=== PATIENT | female | born 1960 | race Caucasian/White ===

== ENCOUNTER → 2017-05-30 | Outpatient (CLI) | payer BC ==
[~2017-05-30] MED LIST: ALBU1AER9 PO; ALPR0.25 PO; AMIT50TA3 PO; CITA20TA9 PO; CLX20 PO; KETO10TA PO; LORA10TA5 PO; OXYC-57 PO; PRED20TA2 PO; PRM625 PO; RIZA10TA19 PO; ULT/50 PO
[2017-05-30 15:50] LABS: BASO % 0.2 %; BASO ABS # 0.01 K/uL (0-0.2); COMPLETE YES; EOS % 2.2 %; IG% 0.2 %; LYMPH % 29.5 %; LYMPH ABS # 1.21 K/uL (1.2-3.4); MEAN CORPUSCULAR HEMOGLOBIN 29.9 pg (25-34); MEAN CORPUSCULAR HGB CONC 33.9 g/dl (32-36); MEAN PLATELET VOLUME 9.1 fL (7.4-10.4); MONO % 6.3 %; NEUT % 61.6 %; PLATELET COUNT 268 K/uL (130-400); RED BLOOD COUNT 4.32 M/uL (4.2-5.4)
[2017-05-30 16:18] LABS: BLOOD UREA NITROGEN 15 mg/dl (7-18); BUN/CREATININE RATIO 17.1 (10-20); CARBON DIOXIDE 29 mmol/L (21-32); CHLORIDE 105 mmol/L (98-107); CREATININE 0.86 mg/dl (0.60-1.20); GLUCOSE 111 mg/dl (70-99); POTASSIUM 3.5 mmol/L (3.5-5.1); SODIUM 140 mmol/L (136-145)
== END | disposition home or self-care (01) ==
LOC: C.CPL 15:07
PROVIDERS: ATTEND Orthopaedic Surgery
DX: Z01.818 Encounter for other preprocedural examination (principal); M75.01 Adhesive capsulitis of right shoulder

== ENCOUNTER → 2017-06-14 | Day surgery (SDC) | payer BC ==
[2017-06-05 14:10] VITALS: Ht 167.6 cm; Wt 72.7 kg
[~2017-06-14] VITALS: Ht 167.6 cm; Wt 72.7 kg
[~2017-06-14] MED LIST changes: -ALBU1AER9 PO; -ALPR0.25 PO; +ATROPINE SULFATE 0.1 MG/ML 5ML SYR IV PRN; +BUPIVACAINE/EPINEPHRINE 0.25% 1:200,000 30 ML VIAL ONE; +BUPIVACAINE/EPINEPHRINE 0.5% MPF 1:200,000 10 ML VIAL ONE; +CEFAZOLIN 2000 MG/60 ML D5W IV SCH; -CLX20 PO; +DEXAMETHASONE SOD INJ 4 MG/ML VIAL ONE; +EpHEDrine SULFATE 50MG/5ML SYR ONE; +EpINEphrine INJ 1MG/ML AMP 1 MG/ML AMP ONE; +FENTANYL CITRATE INJ 50 MCG/1 ML 2 ML VIAL IV PRN; +FENTANYL CITRATE INJ 50 MCG/1 ML 2 ML VIAL ONE; +KETOROLAC TROMETHAMINE 30 MG/ML VIAL IV. PRN; +LABETALOL HCL IV 5 MG/ML 20ML IV PRN; +LIDOCAINE HCL 2% 2 ML VIAL (20MG/ML) ONE; -LORA10TA5 PO; +METHYLPREDNISOLONE ACETATE 80 MG/ML VIAL ONE; +MIDAZOLAM HCL 1 MG/ML 2ML VIAL ONE; +ONDANSETRON INJ 2 MG/ML 2 ML VIAL IV PRN; +ONDANSETRON INJ 2 MG/ML 2 ML VIAL ONE; +OXYCODONE/ACETAMINOPHEN 5-325 TAB PO PRN; -PRED20TA2 PO; +PROPOFOL IV EMULSION 10 MG/ML 20 ML VIAL IV ONE; -RIZA10TA19 PO; +ROPIVACAINE 0.5% 5 MG/ML 30 ML VIAL ONE; +SODIUM CHLORIDE 0.9% 1000ML 1,000 ML IV SCH
--- NOTE | 2017-06-14 08:19 | History & Physical Bridge - [place] ---
H&P Re-Evaluation Bridge Note: I have examined the patient, reviewed the History & Physical and in the interval since the performance of the History & Physical I have noted the following changes of clinical significance: No changes noted
[2017-06-14] MEDS: LACTATED RINGER'S 1000ML 1,000 ML IV SCH ×2 (08:30→10:36)
--- NOTE | 2017-06-14 09:48 | [facility] Post Operative Brief Note ---
Immediate Operative Summary Operative Date Jun 14, 2017. Pre-Operative Diagnosis Right Shoulder Adhesive Capsulitis Post-Operative Diagnosis Same Procedure(s) Performed Right Shoulder Arthroscopic Capsular Release Surgeon Dr Pandey Devulcanizer Head Surgeon(s) Daniel An PA-C Estimated Blood Loss 5ml Findings as above Specimens None Complication(s) None Disposition Recovery Room / PACU
--- NOTE | 2017-06-14 10:03 | Discharge Instructions-SurgCtr ---
Discharge Instructions Date of Service Jun 14, 2017. Visit Reason for Visit: Right Shoulder Adhesive Capsulitis Discharge Discharge Diagnosis / Problem: SAME ABOVE Discharge Goals Goal(s): Decrease discomfort, Improve function Activity Recommendations Activity Limitations: as noted below Lifting Limitations: gradually increase as tolerated Exercise/Sports Limitations: gradually increase as tolerated Shower/Bathe: tomorrow Anesthesia . Post Anesthesia Instructions: If you have had General Anesthesia or IV Sedation: * Do not drive today. * Resume driving when surgeon permits. * Do not make important decisions or sign legal documents today. * Call surgeon for: 1. Temperature elevations greater than 101 degrees F. 2. Uncontrollable pain. 3. Excessive bleeding. 4. Persistent nausea and vomiting. 5. Medication intolerance (nausea, vomiting or rash). * For nausea and vomiting use only clear liquids such as: tea, soda, bouillon until nausea subsides, then gradually increase diet as tolerated. * If you have any concerns or questions, call your surgeon's office. If physician is unavailable and it is an emergency, call 911 or go to the nearest emergency room. . Instructions / Follow-Up Instructions / Follow-Up MEDICATIONS: * Resume previous medications unless instructed otherwise by your surgeon. * Always take pain medication on a full stomach or with food to avoid upset stomach. * Do not drink alcohol or drive while taking narcotics. * Ibuprofen or Tylenol may be taken if narcotic not needed. SPECIAL CARE INSTRUCTIONS: __ None _X_ Keep extremity elevated and iced x 48 hours; apply ice 20-30 minutes 8-10 times/day. May remove at night. _X_ Sling (REMOVE AFTER 48 HOURS) __24 hrs/day __ Remove at night __ Shoulder Immobilizer __ 24 hrs/day __ Remove at night _X_ Dressing __ Maintain until seen in office, may shower with plastic over site _X_ Remove dressings in 24-48 hours and then may shower _X_ Cover incisions with band-aids after showering __ Do not remove steri-strips Call physician if chills or temperature rises above 102 degrees or pain unrelieved by prescribed pain medications at . . Diet Recommendations Home Diet: no limitations Fluid Restriction: None Procedures Procedures Performed: Right Shoulder Arthroscopic Capsular Release Pending Studies Studies pending at discharge: no Work Instructions Return To Work: 3 days (WHEN PAIN IS TOLERATED) Medical Emergencies . Who to Call and When: Medical Emergencies: If at any time you feel your situation is an emergency, please call 911 immediately. . Non-Emergent Contact Non-Emergency issues call your: Primary Care Provider Call Non-Emergent contact if: you have a fever, temperature is above 101.5 . . "Provider Documentation" section prepared by Anam An. .
--- NOTE | 2017-06-14 10:12 | OPERATIVE REPORT ---
DATE OF OPERATION: 06/14/2017 PREOPERATIVE DIAGNOSIS: Adhesive capsulitis of the right shoulder. POSTOPERATIVE DIAGNOSIS: Same. PROCEDURE: Extensive debridement, lysis of adhesions and manipulation under anesthesia. SURGEON: Dr. Harlan Pandey. ROLL GRINDER: Daniel An PA-C, whose assistance was necessary for positioning the arm and helping with instrumentation. ANESTHESIA: General with a right interscalene nerve block. COMPLICATIONS: None. CONDITION: Stable to PACU. INDICATIONS: Светлана is a pleasant 56-year-old female who presented to my office with increasing pain and tightness of her right shoulder. Clinical examination was diagnostic for adhesive capsulitis of the right shoulder. After failing conservative treatment, she elected to undergo a capsular release. OPERATION AND FINDINGS: On 06/14/2017, she arrived at [facility] for the above procedure. She was seen in the preoperative holding area and the operative extremity was identified and signed. She had a preoperative antibiotic and a right interscalene nerve block. She was taken back to the operating room, laid on the table in supine position and put under general anesthesia. She was then put into the beachchair position. The right shoulder was prepped and draped in sterile fashion. Time-out was done and the patient and operative extremity was properly identified. A scope was introduced in the posterior portal. Diagnostic arthroscopy showed no cartilage damage to the humeral head or the glenoid. There was significant redness of the rotator interval. There was thickening of the middle and anterior inferior glenohumeral ligaments. The biceps tendon was intact. There was some fraying on the articular side of the supraspinatus. The infraspinatus, teres minor and subscapularis were intact. An anterior portal was made. A shaver and ablator were used to start lysis of adhesions. The entire rotator interval was opened up all the way underneath the coracoid process. Time was spent releasing the entire middle glenohumeral ligament and anterior inferior glenohumeral ligaments down past the 6 o'clock position. A shaver was used to do an extensive debridement to debride the labrum and to debride back the torn capsule. The articular side of the supraspinatus was also debrided. Significant time was spent ensuring all unstable soft tissues were cleaned up and care was taken not to damage the subscapularis or the axillary nerve. After I was happy with the overall release, arthroscopic instruments were removed from the shoulder. Gentle manipulation was done under anesthesia and I was able to get full range of motion of her shoulder. Portal sites were then closed with 3-0 nylon. SHE IS ALLERGIC TO PREDNISONE, so no injection was done. She was then placed in a soft dressing and regular arm sling. She was then extubated, transferred to a [facility] and taken to the postanesthesia care unit in stable condition. She tolerated the procedure well. I attest to the content of the Intraoperative Record and any orders documented therein. Any exception s are noted below.
[2017-06-14 10:44] VITALS: TEMP 36.3
--- NOTE | 2017-06-14 10:47 | Anesthesia Progress Nt - [facility] ---
Anesthesia Post Op Note Date & Time Jun 14, 2017 at 10:47 Vital Signs Pain Intensity: 0 Vital Signs Past 12 Hours Date Time Temp Pulse Resp B/P (MAP) Pulse Ox O2 Delivery O2 Flow Rate FiO2 06/14/17 10:37 75 19 97 06/14/17 10:37 36.4 76 19 06/14/17 10:36 107/66 06/14/17 10:32 75 26 97 06/14/17 10:32 76 26 06/14/17 10:31 106/66 06/14/17 10:27 77 20 06/14/17 10:27 77 20 97 06/14/17 10:26 106/64 06/14/17 10:22 79 18 06/14/17 10:22 78 18 100 06/14/17 10:21 109/70 06/14/17 10:17 81 14 06/14/17 10:17 82 14 100 06/14/17 10:16 113/72 06/14/17 10:12 79 14 100 06/14/17 10:12 80 14 06/14/17 10:11 113/71 06/14/17 10:07 83 18 100 06/14/17 10:07 83 18 06/14/17 10:06 115/62 06/14/17 10:02 86 31 100 06/14/17 10:02 86 31 06/14/17 10:01 116/67 06/14/17 09:59 112/83 06/14/17 09:58 36.2 90 16 112/83 99 Mask 6 06/14/17 09:17 18 06/14/17 09:16 112/78 06/14/17 09:13 65 15 100 06/14/17 09:13 66 06/14/17 09:11 107/74 06/14/17 09:08 72 14 99 06/14/17 09:08 71 06/14/17 09:07 67 06/14/17 09:07 67 15 100 06/14/17 09:06 129/85 06/14/17 09:02 81 0 137/78 96 06/14/17 09:02 77 06/14/17 08:57 63 0 06/14/17 08:52 65 0 06/14/17 08:47 63 0 06/14/17 08:42 63 0 06/14/17 08:37 66 0 06/14/17 08:32 68 0 06/14/17 08:27 63 0 06/14/17 07:43 36.4 66 16 109/72 (84) 98 Room Air Notes Mental Status: alert / awake / arousable, participated in evaluation Pt Amnestic to Procedure: Yes Nausea / Vomiting: adequately controlled Pain: adequately controlled Airway Patency, RR, SpO2: stable & adequate BP & HR: stable & adequate Hydration State: stable & adequate Anesthetic Complications: no major complications apparent
[2017-06-14 11:12] VITALS: BP 102/65; PULSE 78; O2SAT 97
== END | disposition home or self-care (01) ==
LOC: X.SURG 07:26
PROVIDERS: ATTEND Orthopaedic Surgery
DX: M75.01 Adhesive capsulitis of right shoulder (principal); J45.909 Unspecified asthma, uncomplicated

== ENCOUNTER 2017-11-05 16:46 | Inpatient (IN) | payer BC, OTHER ==
[~2017-11-05] VITALS: Ht 167.6 cm; Wt 59.6 kg
[~2017-11-05 16:46] MED LIST changes: -ATROPINE SULFATE 0.1 MG/ML 5ML SYR IV PRN; -BUPIVACAINE/EPINEPHRINE 0.25% 1:200,000 30 ML VIAL ONE; -BUPIVACAINE/EPINEPHRINE 0.5% MPF 1:200,000 10 ML VIAL ONE; -CEFAZOLIN 2000 MG/60 ML D5W IV SCH; -DEXAMETHASONE SOD INJ 4 MG/ML VIAL ONE; -EpHEDrine SULFATE 50MG/5ML SYR ONE; -EpINEphrine INJ 1MG/ML AMP 1 MG/ML AMP ONE; -FENTANYL CITRATE INJ 50 MCG/1 ML 2 ML VIAL IV PRN; -FENTANYL CITRATE INJ 50 MCG/1 ML 2 ML VIAL ONE; -KETOROLAC TROMETHAMINE 30 MG/ML VIAL IV. PRN; -LABETALOL HCL IV 5 MG/ML 20ML IV PRN; -LIDOCAINE HCL 2% 2 ML VIAL (20MG/ML) ONE; -METHYLPREDNISOLONE ACETATE 80 MG/ML VIAL ONE; -MIDAZOLAM HCL 1 MG/ML 2ML VIAL ONE; -ONDANSETRON INJ 2 MG/ML 2 ML VIAL IV PRN; -ONDANSETRON INJ 2 MG/ML 2 ML VIAL ONE; -OXYCODONE/ACETAMINOPHEN 5-325 TAB PO PRN; -PROPOFOL IV EMULSION 10 MG/ML 20 ML VIAL IV ONE; -ROPIVACAINE 0.5% 5 MG/ML 30 ML VIAL ONE; -SODIUM CHLORIDE 0.9% 1000ML 1,000 ML IV SCH
[2017-11-05] MEDS ORDERED: ONDANSETRON INJ 2 MG/ML 2 ML VIAL IV STA (17:56)
[2017-11-05] MEDS ORDERED: ACETAMINOPHEN 500 MG TAB PO STA (17:56)
[2017-11-05] MEDS ORDERED: SODIUM CHLORIDE 0.9% 1000ML 1,000 ML IV STA ×2 (17:56→19:30)
[2017-11-05] MEDS ORDERED: MoRPHine SULFATE 4 MG/ML 1 ML CARP\\VIAL IV STA ×2 (17:56→19:43)
[2017-11-05] MEDS ORDERED: IBUP-1050 PO (18:03)
[2017-11-05] MEDS ORDERED: ACET-1256 PO (18:03)
[2017-11-05 18:18] LABS: BASO % 0.2 %; BASO ABS # 0.01 K/uL (0-0.2); EOS % 0.2 %; EOS ABS # 0.01 K/uL (0-0.5); HEMATOCRIT 37.2 % (37-47); LYMPH % 8.9 %; LYMPH ABS # 0.39 K/uL (1.2-3.4); MEAN CELL VOLUME 87.3 fL (80-100); MEAN CORPUSCULAR HEMOGLOBIN 30.5 pg (25-34); MEAN CORPUSCULAR HGB CONC 34.9 g/dl (32-36); MEAN PLATELET VOLUME 8.9 fL (7.4-10.4); MONO ABS # 0.31 K/uL (0.11-0.59); NEUT % 83.7 %; NEUT ABS # 3.68 K/uL (1.4-6.5); PLATELET COUNT 188 K/uL (130-400); RED CELL DISTRIBUTION WIDTH CV 12.9 % (11.5-14.5); RED CELL DISTRIBUTION WIDTH SD 41.4 fL (36.4-46.3)
--- NOTE | 2017-11-05 18:31 | DIAGNOSTIC IMAGING REPORT ---
CHEST ONE VIEW PORTABLE CLINICAL HISTORY: cough COMPARISON STUDY: No previous studies for comparison. FINDINGS: The bones soft tissues and hemidiaphragms are normal. The cardiomediastinal silhouette is normal. The lungs are clear. The pulmonary vasculature is normal. IMPRESSION: Negative chest. The above report was generated using voice recognition software. It may contain grammatical, syntax or spelling errors. Electronically signed by: Jones Nuno M.D. 11/05/2017 6:30 PM Dictated Date/Time: 11/05/2017 6:30 PM
[2017-11-05 18:48] LABS: ALBUMIN 3.6 gm/dl (3.4-5.0); ALT/SGPT 18 U/L (12-78); AST/SGOT 17 U/L (15-37); BLOOD UREA NITROGEN 10 mg/dl (7-18); CALCIUM 8.3 mg/dl (8.5-10.1); CARBON DIOXIDE 25 mmol/L (21-32); CREATININE 0.86 mg/dl (0.60-1.20); GLUCOSE 97 mg/dl (70-99); LIPASE 154 U/L (73-393); POTASSIUM 3.4 mmol/L (3.5-5.1); SODIUM 133 mmol/L (136-145)
[2017-11-05 18:51] LABS: ALKALINE PHOSPHATASE 92 U/L (45-117); TOTAL PROTEIN 7.8 gm/dl (6.4-8.2)
[2017-11-05 19:03] LABS: INFLUENZA B ANTIGEN Neg for Influ B (NEG)
--- NOTE | 2017-11-05 19:07 | DIAGNOSTIC IMAGING REPORT ---
ABD/PELVIS NO IV OR ORAL CONT CT DOSE: 261.64 mGy.cm HISTORY: Pain r flank pain w fever TECHNIQUE: Multiaxial CT images of the abdomen and pelvis were performed without contrast. A dose lowering technique was utilized adhering to the principles of ALARA. COMPARISON STUDY: None. FINDINGS: The lung bases are clear. The unenhanced liver, spleen, gallbladder, pancreas, kidneys, and adrenal glands are within normal limits. No bowel wall thickening or obstruction. The pelvic organs are unremarkable. No suspicious lytic or blastic osseous lesions. Kidneys negative for hydronephrosis. The appendix is identified at least in part and appears unremarkable. Nonobstructive bowel pattern. No evidence for abscess or collection. Bladder is midline. No free fluid within the pelvic cul-de-sac. IMPRESSION: No significant abnormality identified within the abdomen or pelvis. The above report was generated using voice recognition software. It may contain grammatical, syntax or spelling errors. Electronically signed by: Jones Nuno M.D. 11/05/2017 7:05 PM Dictated Date/Time: 11/05/2017 7:03 PM
[2017-11-05] MEDS ORDERED: KETOROLAC TROMETHAMINE 30 MG/ML VIAL IV STA (19:30)
[2017-11-05] MEDS ORDERED: ONDANSETRON INJ 2 MG/ML 2 ML VIAL IV PRN (21:15)
[2017-11-05] MEDS ORDERED: POTASSIUM CHLORIDE 10 MEQ TABCR PO STA ×2 (21:16→21:33)
[2017-11-05] MEDS ORDERED: CYCL10TA6 PO (21:21)
[2017-11-05] MEDS ORDERED: TOPI50TA24 PO (21:21)
[2017-11-05] MEDS ORDERED: TRAM-10 PO (21:21)
--- NOTE | 2017-11-05 21:43 | History and Physical ---
History & Physical Date & Time of Service: Nov 05, 2017 ~ 20:45 Chief Complaint: RLQ Abdominal Pain, Fevers, Sinus Congestion Primary Care Physician: Bruno Adkins M.D. History of Present Illness 57 year old female who presents to the ED with RLQ abdominal pain, fevers, and sinus congestion. Patient reports that she developed the RLQ pain 5 days ago. Pain has been persistent. She describes it as a constant ache. It will radiate around the side to the back at times. She did not try any OTC medicines at home for the pain. No changes in bowel habits, denies vomiting, diarrhea, and constipation. No urinary symptoms. Yesterday she developed body aches, fevers, nausea, sinus congestion, and cough. Cough is productive for yellow sputum. She has some chest pain with coughing. She denies shortness of breath. She has felt lightheaded and dizzy but denies syncopal events. In the ED, patient was febrile at 39.2. Fever broke with Tylenol. Labs are unremarkable. CT abd/pelvis is negative for acute findings. Past Medical/Surgical History Medical Problems: (1) Depression Status: Chronic (2) Migraine Status: Chronic Surgical Problems: (1) H/O bilateral oophorectomy Status: Chronic (2) H/O dilation of urethra Status: Chronic (3) H/O nasal septoplasty Status: Chronic (4) H/O tubal ligation Status: Chronic (5) History of tonsillectomy and adenoidectomy Status: Chronic (6) S/P left knee arthroscopy Status: Chronic (7) S/P IVORY (total abdominal hysterectomy) Status: Chronic Family History FH: breast cancer MOTHER Social History Smoking Status: Never Smoker Alcohol Use: occasionally Immunizations History of Tetanus Vaccine?: Yes Tetanus Immunization Date: Jan 27, 2015 History of Pneumococcal: Yes Pneumococcal Date: March 05, 2009 History of Hepatitis B Vaccine: Yes Hepatitis Immunization Date: Sep 15, 2015 Multi-Drug Resistant Organisms History of MDRO: No Allergies Coded Allergies: Meperidine (Verified Allergy, Severe, THROAT SWELLING, DIFFICULTY BREATHING, 11/05/17) Note: received fentanyl intraoperatively on 06/14/17 and nurse reported that this was tolerated Prednisone (Verified Allergy, Severe, SHORTNESS OF BREATH, 11/05/17) Home Medications Scheduled Citalopram Hydrobromide (Celexa), 20 MG PO QAM Estrogens, Conjugated (Premarin), 0.625 MG PO QAM Topiramate (Topamax), 1 TAB PO BID Scheduled PRN Cyclobenzaprine Hcl (Flexeril), 1 TAB PO TID PRN for Muscle Spasms Tramadol (Ultram), 50 MG PO Q6H PRN for Pain Review of Systems ROS per HPI, all other systems reviewed and negative Physical Exam Vital Signs Date Time Temp Pulse Resp B/P (MAP) Pulse Ox O2 Delivery O2 Flow Rate FiO2 11/05/17 19:58 36.8 84 17 93/51 94 Room Air 11/05/17 18:33 18 111/75 98 Room Air 11/05/17 17:15 39.2 105 20 124/76 97 Room Air General Appearance: WD/WN, no apparent distress Head: normocephalic, atraumatic Eyes: normal inspection, EOMI, sclerae normal ENT: hearing grossly normal, + pertinent finding (mucous membranes moist) Neck: supple, no JVD, trachea midline Respiratory/Chest: lungs clear, normal breath sounds, no respiratory distress Cardiovascular: regular rate, rhythm, no edema, normal peripheral pulses Abdomen/GI: normal bowel sounds, soft, no organomegaly, + tenderness (RLQ) Extremities/Musculoskelatal: normal inspection, no calf tenderness, normal capillary refill Neurologic/Psych: no motor/sensory deficits, alert, normal mood/affect, oriented x 3 Skin: normal color, warm/dry Diagnostics Laboratory Results Results Past 24 Hours Test 11/05/17 18:00 11/05/17 18:10 11/05/17 18:20 11/05/17 19:59 Range/Units Urine Color YELLOW Urine Appearance CLEAR CLEAR Urine pH 8.5 4.5-7.5 Urine Specific [place] 1.016 1.000-1.030 Urine Protein NEG NEG Urine Glucose (UA) NEG NEG Urine Ketones NEG NEG Urine Occult Blood NEG NEG Urine Nitrite NEG NEG Urine Bilirubin NEG NEG Urine Urobilinogen NEG NEG Urine Leukocyte Esterase NEG NEG Urine WBC (Auto) 1-5 0-5 /hpf Urine RBC (Auto) 0-4 0-4 /hpf Urine Hyaline Casts (Auto) 1-5 0-5 /lpf Urine Epithelial Cells (Auto) >30 0-5 /lpf Urine Bacteria (Auto) 1+ NEG Urine Test NEG NEG White Blood Count 4.40 4.8-10.8 K/uL Red Blood Count 4.26 4.2-5.4 M/uL Hemoglobin 13.0 12.0-16.0 g/dL Hematocrit 37.2 37-47 % Mean Corpuscular Volume 87.3 80-100 fL Mean Corpuscular Hemoglobin 30.5 25-34 pg Mean Corpuscular Hemoglobin Concent 34.9 32-36 g/dl Platelet Count 188 130-400 K/uL Mean Platelet Volume 8.9 7.4-10.4 fL Neutrophils (%) (Auto) 83.7 % Lymphocytes (%) (Auto) 8.9 % Monocytes (%) (Auto) 7.0 % Eosinophils (%) (Auto) 0.2 % Basophils (%) (Auto) 0.2 % Neutrophils # (Auto) 3.68 1.4-6.5 K/uL Lymphocytes # (Auto) 0.39 1.2-3.4 K/uL Monocytes # (Auto) 0.31 0.11-0.59 K/uL Eosinophils # (Auto) 0.01 0-0.5 K/uL Basophils # (Auto) 0.01 0-0.2 K/uL RDW Standard Deviation 41.4 36.4-46.3 fL RDW Coefficient of Variation 12.9 11.5-14.5 % Immature Granulocyte % (Auto) 0.0 % Immature Granulocyte # (Auto) 0.00 0.00-0.02 K/uL Sodium Level 133 136-145 mmol/L Potassium Level 3.4 3.5-5.1 mmol/L Chloride Level 102 98-107 mmol/L Carbon Dioxide Level 25 21-32 mmol/L Anion Gap 6.0 3-11 mmol/L Blood Urea Nitrogen 10 7-18 mg/dl Creatinine 0.86 0.60-1.20 mg/dl Est Creatinine Clear Calc Drug Dose 65.6 ml/min Estimated GFR () 85.7 Estimated GFR (Non- 73.9 BUN/Creatinine Ratio 11.3 10-20 Random Glucose 97 70-99 mg/dl Calcium Level 8.3 8.5-10.1 mg/dl Total Bilirubin 0.2 0.2-1 mg/dl Direct Bilirubin < 0.1 0-0.2 mg/dl Aspartate Amino Transf (AST/SGOT) 17 15-37 U/L Alanine Aminotransferase (ALT/SGPT) 18 12-78 U/L Alkaline Phosphatase 92 45-117 U/L Total Protein 7.8 6.4-8.2 gm/dl Albumin 3.6 3.4-5.0 gm/dl Lipase 154 73-393 U/L Influenza Type A Antigen Neg for Influ A NEG Influenza Type B Antigen Neg for Influ B NEG Bedside Lactic Acid Venous 0.44 0.90-1.70 mmol/L Test 11/05/17 21:14 11/05/17 21:16 Range/Units Microbiology Results 11/05/17 Group A Streptococcus Screen - Final, Resulted SPECIMEN NEGATIVE FOR GROUP A BETA ST... 11/05/17 Group A Streptococcus Screen ([facility]), Resulted Pending 11/05/17 Urine Culture, Received Pending Diagnostic Radiology CXR IMPRESSION: Negative chest. CT ABD/PELVIS IMPRESSION: No significant abnormality identified within the abdomen or pelvis. Impression Assessment and Plan FEBRILE ILLNESS, URI - admit to med/surg - patient presenting with RLQ abdominal pain that developed 5 days ago and URI symptoms that started yesterday - febrile on arrival at 39.2; no other signs of sepsis - CXR clear; labs unremarkable - rapid influenza negative however will empirically treat with Tamiflu - supportive care with antipyretics and IVF RLQ ABDOMINAL PAIN - etiology unclear - CT abd/pelvis negative for acute findings - general surgery consult in AM DEPRESSION - continue citalopram MIGRAINES - continue topiramate DVT PROPHYLAXIS - SCDs DISPO - The patient will be placed as observation status for now until further work up is complete. Agree with above H Estrella Del Valle says since last she is having RLQ abdmpminal pain. Says saw her doctor and urine was checked and told her if she spikes temp go to ER. Since yesterday having generalized pain, upper respiratory tract infection with cough, runny nose and temp spike. Hemodynamically stable. NO sob. p/e Ge not in distress Cvs s1 and s2 heard no murmurs RS cta b/l no added sounds Abd soft bs present RLQ mild tender no distension no rigidity no rebound tenderness Bed Bug Exterminator non focal Ext no edema a/p Fevers URI possible flu started on Tamiflu gentle fluids RLQ abdominal pain going on few days CT abd/pelvis without contrast unremarkable lactic acid normal clears and npo after mid night surgery consult VTE Prophylaxis VTE Risk Assessment Done? Y/N: Yes Risk Level: Moderate
[2017-11-05 23:00] VITALS: BP 93/54; PULSE 68; TEMP 36.4; O2SAT 97
[2017-11-05] MEDS ORDERED: IV FLUIDS COMPLETED PRN (23:15)
[2017-11-05] MEDS: SODIUM CHLORIDE 0.9% 1000ML 1,000 ML IV SCH (23:31)
--- NOTE | 2017-11-05 23:32 | EMERGENCY ROOM VISIT NOTE ---
History Report prepared by Dilma: Shaheen Goldman Under the Supervision of: Dr. Niko Mobley D.O. First contact with patient: 17:46 Chief Complaint: FLANK PAIN Stated Complaint: PAIN IN LOWER RIGHT SIDE, FEVER History of Present Illness The patient is a 57 year old female who presents to the Emergency Room with complaints of constant lower right abdominal pain beginning 4 days ago. The patient states that she also began to develop a fever, cough, and back pain beginning yesterday. She also complains of dizziness, ear pain, sore throat, and chest pain. She notes that she believes that her chest pain is related to her cough. She reports that eating makes her pain worse. She denies any known sick contacts. The patient states that she has a history of kidney stones but that her current symptoms do not feel similar. Pt denies headache, change in vision, shortness of breath, nausea, vomiting, diarrhea, pain with urination, and melena. Source of History: patient Onset: 4 days ago Position: abdomen Timing: constant Modifying Factors (Worsening): eating Associated Symptoms: + fevers, + sorethroat, + cough, + chest pain, + back pain, No headache, No SOB, No nausea, No vomiting, No diarrhea, No urinary symptoms Note: She also complains of ear pain and dizziness. Review of Systems See HPI for pertinent positives & negatives. A total of 10 systems reviewed and were otherwise negative. Past Medical & Surgical Medical Problems: (1) Depression (2) Kidney stone (3) Migraine Surgical Problems: (1) H/O bilateral oophorectomy (2) H/O dilation of urethra (3) H/O nasal septoplasty (4) H/O tubal ligation (5) History of tonsillectomy and adenoidectomy (6) S/P left knee arthroscopy (7) S/P IVORY (total abdominal hysterectomy) Family History No pertinent family history stated. Social History Smoking Status: Never Smoker Marital Status: Housing Status: lives with family Occupation Status: employed Current/Historical Medications Scheduled Citalopram Hydrobromide (Celexa), 20 MG PO QAM Estrogens, Conjugated (Premarin), 0.625 MG PO QAM Topiramate (Topamax), 1 TAB PO BID Scheduled PRN Cyclobenzaprine Hcl (Flexeril), 1 TAB PO TID PRN for Muscle Spasms Tramadol (Ultram), 50 MG PO Q6H PRN for Pain Allergies Coded Allergies: Meperidine (Verified Allergy, Severe, THROAT SWELLING, DIFFICULTY BREATHING, 11/05/17) Note: received fentanyl intraoperatively on 06/14/17 and nurse reported that this was tolerated Prednisone (Verified Allergy, Severe, SHORTNESS OF BREATH, 11/05/17) Physical Exam Vital Signs Date Time Temp Pulse Resp B/P (MAP) Pulse Ox O2 Delivery O2 Flow Rate FiO2 11/05/17 19:58 36.8 84 17 93/51 94 Room Air 11/05/17 18:33 18 111/75 98 Room Air 11/05/17 17:15 39.2 105 20 124/76 97 Room Air Physical Exam GENERAL: Sitting up in bed, alert, disheveled appearing, well nourished, no distress, non-toxic EYE EXAM: PERRL and EOM's intact. OROPHARYNX: no exudate, no erythema, lips, buccal mucosa, and tongue normal and mucous membranes are moist NECK: supple, no nuchal rigidity, no adenopathy, non-tender LUNGS: Clear to auscultation. Normal chest wall mechanics HEART: no murmurs, S1 normal and S2 normal ABDOMEN: abdomen soft, tender to palpation in RLQ, normo-active bowel sounds, no masses, no rebound or guarding. BACK: Back is symmetrical on inspection and there is no deformity, no midline tenderness, no CVA tenderness. SKIN: no rashes and no bruising UPPER EXTREMITIES: upper extremities are grossly normal. LOWER EXTREMITIES: No pitting edema. NEURO EXAM: Normal sensorium, cranial nerves II-XII grossly intact, normal speech, no gross weakness of arms, no gross weakness of legs. Medical Decision & Procedures ER Provider Diagnostic Interpretation: Radiology results as stated below per my review and the radiologist's interpretation: CHEST ONE VIEW PORTABLE CLINICAL HISTORY: cough COMPARISON STUDY: No previous studies for comparison. FINDINGS: The bones soft tissues and hemidiaphragms are normal. The cardiomediastinal silhouette is normal. The lungs are clear. The pulmonary vasculature is normal. IMPRESSION: Negative chest. The above report was generated using voice recognition software. It may contain grammatical, syntax or spelling errors. Electronically signed by: Jones Nuno M.D. 11/05/2017 6:30 PM ABD/PELVIS NO IV OR ORAL CONT CT DOSE: 261.64 mGy.cm HISTORY: Pain r flank pain w fever TECHNIQUE: Multiaxial CT images of the abdomen and pelvis were performed without contrast. A dose lowering technique was utilized adhering to the principles of ALARA. COMPARISON STUDY: None. FINDINGS: The lung bases are clear. The unenhanced liver, spleen, gallbladder, pancreas, kidneys, and adrenal glands are within normal limits. No bowel wall thickening or obstruction. The pelvic organs are unremarkable. No suspicious lytic or blastic osseous lesions. Kidneys negative for hydronephrosis. The appendix is identified at least in part and appears unremarkable. Nonobstructive bowel pattern. No evidence for abscess or collection. Bladder is midline. No free fluid within the pelvic cul-de-sac. IMPRESSION: No significant abnormality identified within the abdomen or pelvis. The above report was generated using voice recognition software. It may contain grammatical, syntax or spelling errors. Electronically signed by: Jones Nuno M.D. 11/05/2017 7:05 PM Laboratory Results 11/05/17 18:10 Red Blood Count 4.26, Mean Corpuscular Volume 87.3, Mean Corpuscular Hemoglobin 30.5, Mean Corpuscular Hemoglobin Concent 34.9, Mean Platelet Volume 8.9, Neutrophils (%) (Auto) 83.7, Lymphocytes (%) (Auto) 8.9, Monocytes (%) (Auto) 7.0, Eosinophils (%) (Auto) 0.2, Basophils (%) (Auto) 0.2, Neutrophils # (Auto) 3.68, Lymphocytes # (Auto) 0.39, Monocytes # (Auto) 0.31, Eosinophils # (Auto) 0.01, Basophils # (Auto) 0.01 11/05/17 18:10 Test 11/05/17 18:00 11/05/17 18:10 11/05/17 18:20 11/05/17 19:59 Urine Color YELLOW Urine Appearance CLEAR (CLEAR) Urine pH 8.5 (4.5-7.5) Urine Specific [place] 1.016 (1.000-1.030) Urine Protein NEG (NEG) Urine Glucose (UA) NEG (NEG) Urine Ketones NEG (NEG) Urine Occult Blood NEG (NEG) Urine Nitrite NEG (NEG) Urine Bilirubin NEG (NEG) Urine Urobilinogen NEG (NEG) Urine Leukocyte Esterase NEG (NEG) Urine WBC (Auto) 1-5 /hpf (0-5) Urine RBC (Auto) 0-4 /hpf (0-4) Urine Hyaline Casts (Auto) 1-5 /lpf (0-5) Urine Epithelial Cells (Auto) >30 /lpf (0-5) Urine Bacteria (Auto) 1+ (NEG) Urine Test NEG (NEG) White Blood Count 4.40 K/uL (4.8-10.8) Red Blood Count 4.26 M/uL (4.2-5.4) Hemoglobin 13.0 g/dL (12.0-16.0) Hematocrit 37.2 % (37-47) Mean Corpuscular Volume 87.3 fL (80-100) Mean Corpuscular Hemoglobin 30.5 pg (25-34) Mean Corpuscular Hemoglobin Concent 34.9 g/dl (32-36) Platelet Count 188 K/uL (130-400) Mean Platelet Volume 8.9 fL (7.4-10.4) Neutrophils (%) (Auto) 83.7 % Lymphocytes (%) (Auto) 8.9 % Monocytes (%) (Auto) 7.0 % Eosinophils (%) (Auto) 0.2 % Basophils (%) (Auto) 0.2 % Neutrophils # (Auto) 3.68 K/uL (1.4-6.5) Lymphocytes # (Auto) 0.39 K/uL (1.2-3.4) Monocytes # (Auto) 0.31 K/uL (0.11-0.59) Eosinophils # (Auto) 0.01 K/uL (0-0.5) Basophils # (Auto) 0.01 K/uL (0-0.2) RDW Standard Deviation 41.4 fL (36.4-46.3) RDW Coefficient of Variation 12.9 % (11.5-14.5) Immature Granulocyte % (Auto) 0.0 % Immature Granulocyte # (Auto) 0.00 K/uL (0.00-0.02) Anion Gap 6.0 mmol/L (3-11) Est Creatinine Clear Calc Drug Dose 65.6 ml/min Estimated GFR () 85.7 Estimated GFR (Non- 73.9 BUN/Creatinine Ratio 11.3 (10-20) Calcium Level 8.3 mg/dl (8.5-10.1) Magnesium Level 1.7 mg/dl (1.8-2.4) Total Bilirubin 0.2 mg/dl (0.2-1) Direct Bilirubin < 0.1 mg/dl (0-0.2) Aspartate Amino Transf (AST/SGOT) 17 U/L (15-37) Alanine Aminotransferase (ALT/SGPT) 18 U/L (12-78) Alkaline Phosphatase 92 U/L (45-117) Total Protein 7.8 gm/dl (6.4-8.2) Albumin 3.6 gm/dl (3.4-5.0) Lipase 154 U/L (73-393) Influenza Type A Antigen Neg for Influ A (NEG) Influenza Type B Antigen Neg for Influ B (NEG) Bedside Lactic Acid Venous 0.44 mmol/L (0.90-1.70) Laboratory results per my review. Medications Administered Medications (Trade) Dose Ordered Sig/Cathy Route Start Time Stop Time Status Last Admin Dose Admin Sodium Chloride 1,000 ml @ 999 mls/hr Q1H1M STAT IV 11/05/17 17:56 11/05/17 18:56 DC 11/05/17 18:16 999 MLS/HR Ondansetron HCl (Zofran Inj) 4 mg NOW STAT IV 11/05/17 17:56 11/05/17 17:58 DC 11/05/17 18:16 4 MG Morphine Sulfate (MoRPHine SULFATE INJ) 4 mg NOW STAT IV 11/05/17 17:56 11/05/17 17:58 DC 11/05/17 18:17 4 MG Acetaminophen (Tylenol Tab) 1,000 mg NOW STAT PO 11/05/17 17:56 11/05/17 17:58 DC 11/05/17 18:16 1,000 MG Ketorolac Tromethamine (Toradol Inj) 30 mg NOW STAT IV 11/05/17 19:30 11/05/17 19:31 DC 11/05/17 20:07 30 MG Sodium Chloride 1,000 ml @ 999 mls/hr Q1H1M STAT IV 11/05/17 19:30 11/05/17 20:30 DC 11/05/17 20:08 999 MLS/HR Morphine Sulfate (MoRPHine SULFATE INJ) 4 mg NOW STAT IV 11/05/17 19:43 11/05/17 19:44 DC 11/05/17 20:07 4 MG ED Course ED COURSE: Vital signs were reviewed and showed the patient to be tachycardic and febrile. The patients medical record was reviewed The above diagnostic studies were performed and reviewed. ED treatments and interventions as stated above. 1750: The patient was evaluated in room B2. A complete history and physical examination was performed. 175: Acetaminophen 1000mg PO, Morphine Sulfate 4mg IV, Zofran Inj 4mg IV, Sodium Chloride 1000 ml @ 999 mls/hr IV 1853: I reevaluated and updated the patient. She is doing well. 1928: I rechecked on the patient. 1929: Sodium Chloride 1000 ml @ 999 mls/hr IV, Toradol Inj 30mg IM 1943: Morphine Sulfate 4mg IV 2035: Upon reevaluation, the patient is stable. I discussed my findings with the patient and she understands and agrees with the treatment plan. Based on the patients age, coexisting illnesses, exam and lab findings the decision to treat as an inpatient was made. The patient remained stable while under my care. Discussed the patient's case with Dr. Singer - HospitalistСветлана. The patient will be evaluated for further management. Medical Decision Differential diagnoses includes but is not limited to gastritis, peptic ulcer disease, GERD, gallbladder disease, pancreatitis, small bowel obstruction, acute coronary syndrome, pericarditis, ischemic bowel, irritable bowel disease, irritable bowel syndrome, appendicitis, diverticulitis, malignancy, hernia, urinary tract infection, torsion, /ectopic , perforation, trauma, infectious. Patient is a 57-year-old female who presents to ER for right lower quadrant abdominal pain. Upon presentation she is febrile and tachycardic. Heart rate in the 120s. On exam she is normal tenderness in the right lower quadrant. No previous abdominal surgeries. She also admits to a cough, runny nose and congestion. Chest x-ray was unremarkable. Labs show a mild leukopenia. BMP all LFTs, bilirubin and lipase is unremarkable. Lactic acid was normal. UA was contaminated. negative. Influenza AB-. Patient was given 2 L normal saline along with 2 doses of IV morphine. Discussed with internal medicine as she did jump her blood pressure into the low 90s. This did improve with additional fluids. Patient was updated at bedside admitted for a likely viral URI in combination with right lower quadrant pain undifferentiated. Medication Reconcilliation Current Medication List: was personally reviewed by me Blood Pressure Screening Patient's blood pressure: Normal blood pressure Blood pressure disposition: Did not require urgent referral Consults Time Called: 2033 Consulting Physician: Dr. Singer - Светлана Spencer Returned Call: 2035 I reviewed the patient's case with Dr. Singer. He will evaluate the patient for further management. Impression Primary Impression: RLQ abdominal pain Additional Impressions: Febrile SIRS (systemic inflammatory response syndrome) Scribe Attestation The scribe's documentation has been prepared under my direction and personally reviewed by me in its entirety. I confirm that the note above accurately reflects all work, treatment, procedures, and medical decision making performed by me. Departure Information Dispostion Being Evaluated By Hospitalist Referrals Bruno Adkins M.D. (PCP) Patient Instructions My [facility] Problem Qualifiers Additional Impressions: Febrile Fever type: unspecified Qualified Codes: R50.9 - Fever, unspecified
[2017-11-05] MEDS: OSELTAMIVIR PHOSPHATE 75 MG CAP PO SCH (23:43)
[2017-11-06] VITALS (8 sets, daily range): BP systolic 92–98; BP diastolic 50–59; PULSE 63–76; TEMP 36.5–37.6; O2SAT 91–96; Ht 167.6 cm; Wt 59.6 kg
[2017-11-06] MEDS ORDERED: PNEUMOCOCCAL POLYSACCHARIDES 25 MCG/0.5 ML VIAL/SYR IM. ONE (05:30)
[2017-11-06] MEDS ORDERED: PNEUMOCOCCAL ADMINISTRATION CHARGE ONE (05:30)
[2017-11-06] MEDS ORDERED: INFLUENZA ADMINISTRATION CHARGE ONE (05:30)
[2017-11-06] MEDS ORDERED: INFLUENZA VIRUS QUAD VACCINE 0.5 ML SYR IM. ONE (05:30)
--- NOTE | 2017-11-06 06:27 | Surgery Consultation ---
Consultation Date of Consultation: Nov 06, 2017. Attending Physician: Chico Cuellar M.D. Reason for Consultation: RLQ pain (Harlan Witt PA-C) History of Present Illness Patient is a 57F who presented to the ED this past evening for RLQ pain, fevers and sinus congestion. States her abdominal pain started approximately 5 days ago. It is constant and wraps around to her back. States she feels nauseated at times but believes this is due to her sinus symptoms. Denies any vomiting. She has been moving her bowel and urinating without trouble. Reports last bowel movement yesterday morning. States her bowel function is somewhat sporadic to begin with. Denies dysuria or hematuria. States her appetite is decreased. She last had some crackers in the ED last night and was able to hold them down without issue. She denies any problems like this in the past. PSHx significant for tubal ligation and IVORY-SBO. Denies any other surgeries in the past. Labs show mild decrease in potassium, sodium and chloride. Remainder of labs are unremarkable. No leukocytosis. CT abd/pelvis in the ED is unremarkable for any acute abdominal findings however this test was performed without any contrast. Her respiratory symptoms include cough w/ yellow sputum, sinus congestion, body aches and fever. Denies coughing up any blood. She does have some chest pain which she attributes to coughing. Denies any history of cardiac or pulmonary issues. Tested negative for the flu but was treated with tamiflu anyways. Strep screen and urine culture pending. She does not currently take any blood thinning or anticoagulant medications. (Harlan Witt PA-C) Past Medical/Surgical History Medical Problems: (1) Febrile Status: Acute (2) RLQ abdominal pain Status: Acute (3) SIRS (systemic inflammatory response syndrome) Status: Acute (Harlan Witt PA-C) Family History FH: breast cancer MOTHER (Harlan Witt PA-C) FH: breast cancer MOTHER (Ryan Trejo M.D.) Social History Smoking Status: Never Smoker Alcohol Use: occasionally Marital Status: Housing Status: lives with family Occupation Status: employed (Harlan Witt PA-C) Allergies Coded Allergies: Meperidine (Verified Allergy, Severe, THROAT SWELLING, DIFFICULTY BREATHING, 11/05/17) Note: received fentanyl intraoperatively on 06/14/17 and nurse reported that this was tolerated Prednisone (Verified Allergy, Severe, SHORTNESS OF BREATH, 11/05/17) Home Medications Scheduled Citalopram Hydrobromide (Celexa), 20 MG PO QAM Estrogens, Conjugated (Premarin), 0.625 MG PO QAM Topiramate (Topamax), 1 TAB PO BID Scheduled PRN Cyclobenzaprine Hcl (Flexeril), 1 TAB PO TID PRN for Muscle Spasms Tramadol (Ultram), 50 MG PO Q6H PRN for Pain Current Inpatient Medications Current Inpatient Medications Medications (Trade) Dose Ordered Sig/Cathy Route Start Time Stop Time Status Last Admin Dose Admin Acetaminophen (Tylenol Tab) 650 mg Q4H PRN PO 11/05/17 21:15 12/05/17 21:14 Ondansetron HCl (Zofran Inj) 4 mg Q6H PRN IV 11/05/17 21:15 12/05/17 21:14 Oseltamivir Phosphate (Tamiflu Cap) 75 mg BID PO 11/05/17 23:30 11/10/17 09:01 11/05/17 23:43 75 MG Sodium Chloride 1,000 ml @ 80 mls/hr [id number] IV 11/05/17 23:30 12/05/17 23:29 11/05/17 23:31 80 MLS/HR Citalopram Hydrobromide (celeXA TAB) 20 mg QAM PO 11/06/17 09:00 12/06/17 08:59 Estrogens Conjugated (Premarin Tab) 0.625 mg QAM PO 11/06/17 09:00 12/06/17 08:59 Topiramate (Topamax Tab) 50 mg BID PO 11/06/17 09:00 12/06/17 08:59 Magnesium Oxide (Mag-Ox Tab) 400 mg BID PO 11/06/17 09:00 12/06/17 08:59 Miscellaneous (Iv Fluids Completed) 1 ea PRN PRN N/A 11/05/17 23:15 11/05/18 23:14 (LovelockHarlan modi, PAAnujC) Review of Systems Constitutional: + fever, + chills ENT: + nasal symptoms, No tinnitus Respiratory: + cough, + sputum (yellow), No shortness of breath, No hemoptysis Cardiovascular: + chest pain (She believes this is due to her coughing) Abdomen: + pain (Right-midline lower pelvic area.) Genitourinary - Female: No dysuria, No hematuria Integumentary: + rash, + color change (Harlan Witt PA-C) Physical Exam Date Time Temp Pulse Resp B/P (MAP) Pulse Ox O2 Delivery O2 Flow Rate FiO2 11/05/17 23:00 36.4 68 18 93/54 97 Room Air 11/05/17 22:50 72 97 11/05/17 22:09 72 17 94/64 97 Room Air 11/05/17 19:58 36.8 84 17 93/51 94 Room Air 11/05/17 18:33 18 111/75 98 Room Air 11/05/17 17:15 39.2 105 20 124/76 97 Room Air General Appearance: WD/WN, no apparent distress Head: normocephalic, atraumatic ENT: hearing grossly normal Respiratory/Chest: no respiratory distress, no accessory muscle use Abdomen/GI: normal bowel sounds, soft, no organomegaly, no pulsatile mass, + tenderness (Right-midline lower pelvic TTP, mild) Neurologic/Psych: alert, normal mood/affect, oriented x 3 Skin: normal color, warm/dry (Harlan Witt PA-C) Laboratory Results Last 24 Hours Test 11/05/17 18:00 11/05/17 18:10 11/05/17 18:20 11/05/17 19:59 Urine Color YELLOW Urine Appearance CLEAR Urine pH 8.5 Urine Specific [place] 1.016 Urine Protein NEG Urine Glucose (UA) NEG Urine Ketones NEG Urine Occult Blood NEG Urine Nitrite NEG Urine Bilirubin NEG Urine Urobilinogen NEG Urine Leukocyte Esterase NEG Urine WBC (Auto) 1-5 /hpf Urine RBC (Auto) 0-4 /hpf Urine Hyaline Casts (Auto) 1-5 /lpf Urine Epithelial Cells (Auto) >30 /lpf Urine Bacteria (Auto) 1+ Urine Test NEG White Blood Count 4.40 K/uL Red Blood Count 4.26 M/uL Hemoglobin 13.0 g/dL Hematocrit 37.2 % Mean Corpuscular Volume 87.3 fL Mean Corpuscular Hemoglobin 30.5 pg Mean Corpuscular Hemoglobin Concent 34.9 g/dl Platelet Count 188 K/uL Mean Platelet Volume 8.9 fL Neutrophils (%) (Auto) 83.7 % Lymphocytes (%) (Auto) 8.9 % Monocytes (%) (Auto) 7.0 % Eosinophils (%) (Auto) 0.2 % Basophils (%) (Auto) 0.2 % Neutrophils # (Auto) 3.68 K/uL Lymphocytes # (Auto) 0.39 K/uL Monocytes # (Auto) 0.31 K/uL Eosinophils # (Auto) 0.01 K/uL Basophils # (Auto) 0.01 K/uL RDW Standard Deviation 41.4 fL RDW Coefficient of Variation 12.9 % Immature Granulocyte % (Auto) 0.0 % Immature Granulocyte # (Auto) 0.00 K/uL Sodium Level 133 mmol/L Potassium Level 3.4 mmol/L Chloride Level 102 mmol/L Carbon Dioxide Level 25 mmol/L Anion Gap 6.0 mmol/L Blood Urea Nitrogen 10 mg/dl Creatinine 0.86 mg/dl Est Creatinine Clear Calc Drug Dose 65.6 ml/min Estimated GFR () 85.7 Estimated GFR (Non- 73.9 BUN/Creatinine Ratio 11.3 Random Glucose 97 mg/dl Calcium Level 8.3 mg/dl Magnesium Level 1.7 mg/dl Total Bilirubin 0.2 mg/dl Direct Bilirubin < 0.1 mg/dl Aspartate Amino Transf (AST/SGOT) 17 U/L Alanine Aminotransferase (ALT/SGPT) 18 U/L Alkaline Phosphatase 92 U/L Total Protein 7.8 gm/dl Albumin 3.6 gm/dl Lipase 154 U/L Influenza Type A Antigen Neg for Influ A Influenza Type B Antigen Neg for Influ B Bedside Lactic Acid Venous 0.44 mmol/L Test 11/05/17 21:14 11/06/17 04:44 Lactic Acid Level 0.5 mmol/L (LovelockHarlan modi, PA-C) Assessment & Plan RLQ/Right Pelvic pain, fever and URI symptoms, CT w/o contrast negative for acute abdominal findings, Etiology unknown. Pain controlled, No N/V at this time, afebrile. No indications of acute surgical intervention at this time. AM labs pending - will await results. Possibly consider further imaging with contrast today Will discuss findings with Dr. Trejo. Please contact with questions or concerns. (Harlan Witt, ROBERT) 11/06/17- I examined pt- she says she is not hungry and is nauseated this am. She does have tenderness in the RLQ. her pain for 4-5 days is atypical for appendicitis and appendix is not well seen on CT with no inflammation in the area. Considering diagnostic laparoscopy and appendectomy. (Ryan Trejo M.D.)
--- NOTE | 2017-11-06 07:31 | Surgery Progress Note ---
Surgery Progress Note Date of Service Nov 06, 2017. Subjective abd pain , nausea Objective Vital Signs: Date Time Temp Pulse Resp B/P (MAP) Pulse Ox O2 Delivery O2 Flow Rate FiO2 11/05/17 23:00 36.4 68 18 93/54 97 Room Air 11/05/17 22:50 72 97 11/05/17 22:09 72 17 94/64 97 Room Air 11/05/17 19:58 36.8 84 17 93/51 94 Room Air 11/05/17 18:33 18 111/75 98 Room Air 11/05/17 17:15 39.2 105 20 124/76 97 Room Air Abdomen: + tenderness Laboratory Results: Results Past 24 Hours Test 11/05/17 18:00 11/05/17 18:10 11/05/17 18:20 11/05/17 19:59 Range/Units Urine Color YELLOW Urine Appearance CLEAR CLEAR Urine pH 8.5 4.5-7.5 Urine Specific [place] 1.016 1.000-1.030 Urine Protein NEG NEG Urine Glucose (UA) NEG NEG Urine Ketones NEG NEG Urine Occult Blood NEG NEG Urine Nitrite NEG NEG Urine Bilirubin NEG NEG Urine Urobilinogen NEG NEG Urine Leukocyte Esterase NEG NEG Urine WBC (Auto) 1-5 0-5 /hpf Urine RBC (Auto) 0-4 0-4 /hpf Urine Hyaline Casts (Auto) 1-5 0-5 /lpf Urine Epithelial Cells (Auto) >30 0-5 /lpf Urine Bacteria (Auto) 1+ NEG Urine Test NEG NEG White Blood Count 4.40 4.8-10.8 K/uL Red Blood Count 4.26 4.2-5.4 M/uL Hemoglobin 13.0 12.0-16.0 g/dL Hematocrit 37.2 37-47 % Mean Corpuscular Volume 87.3 80-100 fL Mean Corpuscular Hemoglobin 30.5 25-34 pg Mean Corpuscular Hemoglobin Concent 34.9 32-36 g/dl Platelet Count 188 130-400 K/uL Mean Platelet Volume 8.9 7.4-10.4 fL Neutrophils (%) (Auto) 83.7 % Lymphocytes (%) (Auto) 8.9 % Monocytes (%) (Auto) 7.0 % Eosinophils (%) (Auto) 0.2 % Basophils (%) (Auto) 0.2 % Neutrophils # (Auto) 3.68 1.4-6.5 K/uL Lymphocytes # (Auto) 0.39 1.2-3.4 K/uL Monocytes # (Auto) 0.31 0.11-0.59 K/uL Eosinophils # (Auto) 0.01 0-0.5 K/uL Basophils # (Auto) 0.01 0-0.2 K/uL RDW Standard Deviation 41.4 36.4-46.3 fL RDW Coefficient of Variation 12.9 11.5-14.5 % Immature Granulocyte % (Auto) 0.0 % Immature Granulocyte # (Auto) 0.00 0.00-0.02 K/uL Sodium Level 133 136-145 mmol/L Potassium Level 3.4 3.5-5.1 mmol/L Chloride Level 102 98-107 mmol/L Carbon Dioxide Level 25 21-32 mmol/L Anion Gap 6.0 3-11 mmol/L Blood Urea Nitrogen 10 7-18 mg/dl Creatinine 0.86 0.60-1.20 mg/dl Est Creatinine Clear Calc Drug Dose 65.6 ml/min Estimated GFR () 85.7 Estimated GFR (Non- 73.9 BUN/Creatinine Ratio 11.3 10-20 Random Glucose 97 70-99 mg/dl Calcium Level 8.3 8.5-10.1 mg/dl Magnesium Level 1.7 1.8-2.4 mg/dl Total Bilirubin 0.2 0.2-1 mg/dl Direct Bilirubin < 0.1 0-0.2 mg/dl Aspartate Amino Transf (AST/SGOT) 17 15-37 U/L Alanine Aminotransferase (ALT/SGPT) 18 12-78 U/L Alkaline Phosphatase 92 45-117 U/L Total Protein 7.8 6.4-8.2 gm/dl Albumin 3.6 3.4-5.0 gm/dl Lipase 154 73-393 U/L Influenza Type A Antigen Neg for Influ A NEG Influenza Type B Antigen Neg for Influ B NEG Bedside Lactic Acid Venous 0.44 0.90-1.70 mmol/L Test 11/05/17 21:14 11/06/17 04:44 Range/Units Lactic Acid Level 0.5 0.4-2.0 mmol/L Microbiology Results 11/05/17 Group A Streptococcus Screen - Final, Resulted SPECIMEN NEGATIVE FOR GROUP A BETA ST... 11/05/17 Group A Streptococcus Screen (PARVEZ), Resulted Pending 11/05/17 Urine Culture, Received Pending Assessment & Plan 11/06/17- I feel we should proceed with diagnostic laparoscopy/ appendectomy pain is significant. start Zosyn
[2017-11-06] MEDS ORDERED: PROPOFOL IV EMULSION 10 MG/ML 20 ML VIAL IV ONE (07:37)
[2017-11-06] MEDS ORDERED: ONDANSETRON INJ 2 MG/ML 2 ML VIAL ONE (07:37)
[2017-11-06] MEDS ORDERED: LIDOCAINE HCL 2% 2 ML VIAL (20MG/ML) ONE (07:37)
[2017-11-06] MEDS ORDERED: FENTANYL CITRATE INJ 50 MCG/1 ML 2 ML VIAL ONE (07:38)
[2017-11-06] MEDS ORDERED: MIDAZOLAM HCL 1 MG/ML 2ML VIAL ONE (07:38)
[2017-11-06] MEDS ORDERED: BUPIVACAINE 0.5 % 5 MG/1 ML MPF 30ML VIAL ONE (07:42)
[2017-11-06] MEDS ORDERED: ACETAMINOPHEN 1000 MG/100 ML IV IV ONE (07:42)
[2017-11-06 07:55] LABS: HEMATOCRIT 36.9 % (37-47); HEMOGLOBIN 12.4 g/dL (12.0-16.0); MEAN CELL VOLUME 88.5 fL (80-100); MEAN CORPUSCULAR HEMOGLOBIN 29.7 pg (25-34); MEAN CORPUSCULAR HGB CONC 33.6 g/dl (32-36); PLATELET COUNT 177 K/uL (130-400); RED CELL DISTRIBUTION WIDTH CV 13.2 % (11.5-14.5); RED CELL DISTRIBUTION WIDTH SD 43.2 fL (36.4-46.3); WHITE BLOOD COUNT 3.67 K/uL (4.8-10.8)
[2017-11-06] MEDS: PIPERACILL/TAZOBAC IV 3.375 GM in DEXTROSE 5% 100ML 100 ML IV SCH ×3 (08:09→20:41)
[2017-11-06 08:29] LABS: CREATININE 0.67 mg/dl (0.60-1.20); POTASSIUM 3.9 mmol/L (3.5-5.1)
[2017-11-06] MEDS ORDERED: METOCLOPRAMIDE HCL INJ 5 MG/ML 2 ML VIAL ONE (08:50)
[2017-11-06] MEDS ORDERED: DEXAMETHASONE SOD INJ 4 MG/ML VIAL ONE (08:50)
[2017-11-06] MEDS ORDERED: PHENYLEPHRINE 100MCG/ML 5ML SYR ONE (08:54)
[2017-11-06] MEDS ORDERED: EpHEDrine SULFATE 50MG/5ML SYR ONE (08:57)
[2017-11-06] MEDS ORDERED: GLYCOPYRROLATE INJ 0.2 MG/ML VIAL ONE (09:07)
[2017-11-06] MEDS ORDERED: NEOSTIGMINE METHYLSULFATE 5 MG/5 ML SYR ONE (09:07)
--- NOTE | 2017-11-06 09:18 | [facility] Operative Report ---
Operative Report Operative Date Nov 06, 2017. Pre-Operative Diagnosis Appendectomy Post-Operative Diagnosis Same Procedure(s) Performed Laparoscopic Appendectomy Surgeon Dr Trejo Groover And Striper Operator Surgeon(s) Facundo De La Paz PA-C Estimated Blood Loss 10ML Findings relatively normal appendix no other abnormal finding Specimens A. appendix Anesthesia gen Complication(s) None Disposition Recovery Room / PACU I attest to the content of the Intraoperative Record and any orders documented therein. Any exceptions are noted below.
[2017-11-06] MEDS ORDERED: PROMETHAZINE HCL INJ 25 MG in SODIUM CHLORIDE 0.9% 50ML 50 ML IV PRN (09:30)
[2017-11-06] MEDS ORDERED: ONDANSETRON INJ 2 MG/ML 2 ML VIAL IV PRN ×2 (09:30→10:00)
[2017-11-06] MEDS ORDERED: HYDROmorphone INJ 1 MG/ML SYR IV PRN ×2 (09:30→10:00)
[2017-11-06] MEDS ORDERED: HYDROCODONE/ACETAMOPHEN 5/325MG TAB PO PRN ×2 (09:30)
[2017-11-06] MEDS ORDERED: HYDROmorphone INJ 0.5 MG/0.5 ML SYR IV PRN (09:30)
--- NOTE | 2017-11-06 09:41 | OPERATIVE REPORT ---
DATE OF OPERATION: 11/06/2017 NAME OF OPERATION: Laparoscopy with appendectomy. PREOPERATIVE DIAGNOSIS: Abdominal pain. POSTOPERATIVE DIAGNOSIS: Same. STAFF SURGEON: Dr. Ryan Trejo. BOOSTER PUMP OILER: Facundo De La Paz PA-C ANESTHESIA: General. DESCRIPTION OF PROCEDURE: The patient was brought into the operating room and placed on the operating table in the supine position. Her abdomen was prepped and draped in the usual fashion. 0.5% plain Marcaine was used to anesthetize all incisions. Incision was made just above the umbilicus, carrying dissection down to the fascia, placing a Veress needle and producing pneumoperitoneum. An 11-mm port was placed at this level and then under visualization, a 5-mm port was placed suprapubically and a 12-mm port was placed in the left lower quadrant. The cecum was reflected. The appendix was identified. It appeared relatively normal. The base of the appendix was transected using an Endo-INGRID stapler and then the mesoappendix transected using an additional loads of the Endo-INGRID stapler. Appendix was placed in an Endobag and then removed through the left lower quadrant site. At this point, the ileum was traced back approximately 2-3 feet, which was normal. The pelvis was examined. The small bowel appeared to be normal, possibly mildly erythematous, but there was no evidence of any abnormality in the right lower quadrant or pelvic area. After appropriate hemostasis and irrigation, all ports were removed. The fascia at the 12-mm and 11-mm sites closed using interrupted 0 Vicryl suture and then, the skin at the umbilicus and suprapubically closed using subcuticular 4-0 Monocryl and then Steri-Strips for the left lower quadrant incision. As a note, my virtual customer assistant helped with prepping and draping, entering the abdomen, exposing the appendix, removing the appendix and closing the abdominal wounds. I attest to the content of the Intraoperative Record and any orders documented therein. Any exception s are noted below.
[2017-11-06] MEDS ORDERED: PROMETHAZINE HCL INJ 12.5 MG in SODIUM CHLORIDE 0.9% 50ML 50 ML IV PRN (09:45)
[2017-11-06] MEDS ORDERED: EpHEDrine SULFATE INJ 50 MG/ML AMP IV PRN (10:00)
[2017-11-06] MEDS ORDERED: ATROPINE SULFATE 0.1 MG/ML 5ML SYR IV PRN (10:00)
[2017-11-06] MEDS ORDERED: FENTANYL CITRATE INJ 50 MCG/1 ML 2 ML VIAL IV PRN (10:00)
[2017-11-06] MEDS: OSELTAMIVIR PHOSPHATE 75 MG CAP PO SCH ×2 (10:38→20:45)
[2017-11-06] MEDS: CITALOPRAM 20 MG TAB PO SCH (10:38)
[2017-11-06] MEDS: ESTROGENS, CONJUGATED 0.625 MG TAB PO SCH (10:38)
[2017-11-06] MEDS: TOPIRAMATE 25 MG TAB PO SCH ×2 (10:38→20:44)
[2017-11-06] MEDS: MAGNESIUM OXIDE 400 MG TAB PO SCH ×2 (10:38→20:45)
--- NOTE | 2017-11-06 10:44 | Anesthesiology Progress Note ---
Anesthesia Post Op Note Date & Time Nov 06, 2017 at 10:44 Vital Signs Pain Intensity: 4 Vital Signs Past 12 Hours Date Time Temp Pulse Resp B/P (MAP) Pulse Ox O2 Delivery O2 Flow Rate FiO2 11/06/17 10:30 36.7 65 16 92/59 (70) 92 Room Air 11/06/17 10:17 68 17 96 11/06/17 10:17 68 17 11/06/17 10:16 98/59 11/06/17 10:12 70 13 96 11/06/17 10:12 69 13 11/06/17 10:11 96/58 11/06/17 10:07 69 15 11/06/17 10:07 69 15 95 11/06/17 10:05 95/60 11/06/17 10:05 36.2 86 18 95/60 96 Nasal Cannula 2 11/06/17 10:02 73 15 96 11/06/17 10:02 73 15 11/06/17 10:01 72 15 11/06/17 10:01 72 15 93/62 95 11/06/17 09:56 71 12 11/06/17 09:56 71 12 97 11/06/17 09:55 96/62 11/06/17 09:51 71 12 94/61 97 11/06/17 09:51 71 12 11/06/17 09:50 71 13 11/06/17 09:50 71 13 96 11/06/17 09:46 93/56 11/06/17 09:45 74 18 11/06/17 09:45 74 18 93/60 98 11/06/17 09:42 90/ 11/06/17 09:40 77 14 11/06/17 09:40 77 14 98 11/06/17 09:36 99/64 11/06/17 09:35 74 23 11/06/17 09:35 73 23 98 11/06/17 09:30 87 20 118/72 100 11/06/17 09:30 36.6 86 18 118/72 100 Oxymask 10 11/06/17 09:30 87 20 11/06/17 08:06 37.6 76 20 98/56 (70) 96 Room Air 11/06/17 08:00 Room Air 11/05/17 23:00 36.4 68 18 93/54 97 Room Air 11/05/17 22:50 72 97 Notes Mental Status: alert / awake / arousable, participated in evaluation Pt Amnestic to Procedure: Yes Nausea / Vomiting: adequately controlled Pain: adequately controlled Airway Patency, RR, SpO2: stable & adequate BP & HR: stable & adequate Hydration State: stable & adequate Anesthetic Complications: no major complications apparent
[2017-11-06] MEDS: SODIUM CHLORIDE 0.9% 1000ML 1,000 ML IV SCH (14:04)
--- NOTE | 2017-11-06 17:56 | Progress Note ---
Internal Med Progress Note Date of Service: Nov 06, 2017. Provider Documentation: SUBJECTIVE: Seen s/p surgery. Patient awake and in no distress. OBJECTIVE: General- no acute distress Neck- no JVD, trachea midline Lungs- CTABL Heart- RRR Abdomen- soft, nontender, + bowel sounds, dressing over left abdomen Extremities- nontender Neuro- awake and alert and oriented ASSESSMENT & PLAN: 57 year old female who presents to the ED with Abdominal pain, fevers, and sinus congestion. RLQ ABDOMINAL PAIN / fever CT abd/pelvis negative for acute findings patient was started on Zosyn on 11/06/17 and had Laparoscopic Appendectomy performed blood cultures to be sent Upper respiratory symptoms / fever rapid influenza negative however will empirically continue treatment with Tamiflu DEPRESSION continue citalopram MIGRAINES continue topiramate DVT PROPHYLAXIS : SCDs Vital Signs: Date Time Temp Pulse Resp B/P (MAP) Pulse Ox O2 Delivery O2 Flow Rate FiO2 11/06/17 16:00 95 Room Air 11/06/17 15:23 36.9 66 18 96/58 (71) 95 Room Air 11/06/17 12:59 36.5 68 16 92/50 (64) 95 Room Air 11/06/17 12:00 36.5 63 16 96/59 (71) 92 11/06/17 11:07 36.5 63 18 93/56 (68) 91 Room Air 11/06/17 10:30 36.7 65 16 92/59 (70) 92 Room Air 11/06/17 10:17 68 17 96 11/06/17 10:17 68 17 11/06/17 10:16 98/59 11/06/17 10:12 70 13 96 11/06/17 10:12 69 13 11/06/17 10:11 96/58 11/06/17 10:07 69 15 11/06/17 10:07 69 15 95 11/06/17 10:05 95/60 11/06/17 10:05 36.2 86 18 95/60 96 Nasal Cannula 2 11/06/17 10:02 73 15 96 11/06/17 10:02 73 15 11/06/17 10:01 72 15 11/06/17 10:01 72 15 93/62 95 11/06/17 09:56 71 12 11/06/17 09:56 71 12 97 11/06/17 09:55 96/62 11/06/17 09:51 71 12 94/61 97 11/06/17 09:51 71 12 11/06/17 09:50 71 13 11/06/17 09:50 71 13 96 11/06/17 09:46 93/56 11/06/17 09:45 74 18 11/06/17 09:45 74 18 93/60 98 11/06/17 09:42 90/ 11/06/17 09:40 77 14 11/06/17 09:40 77 14 98 11/06/17 09:36 99/64 11/06/17 09:35 74 23 11/06/17 09:35 73 23 98 11/06/17 09:30 87 20 118/72 100 11/06/17 09:30 36.6 86 18 118/72 100 Oxymask 10 11/06/17 09:30 87 20 11/06/17 08:06 37.6 76 20 98/56 (70) 96 Room Air 11/06/17 08:00 Room Air 11/05/17 23:00 36.4 68 18 93/54 97 Room Air 11/05/17 22:50 72 97 11/05/17 22:09 72 17 94/64 97 Room Air 11/05/17 19:58 36.8 84 17 93/51 94 Room Air 11/05/17 18:33 18 111/75 98 Room Air Lab Results: Results Past 24 Hours Test 11/05/17 18:20 11/05/17 19:59 11/05/17 21:14 11/06/17 07:36 Range/Units Influenza Type A Antigen Neg for Influ A NEG Influenza Type B Antigen Neg for Influ B NEG Bedside Lactic Acid Venous 0.44 0.90-1.70 mmol/L Lactic Acid Level 0.5 0.4-2.0 mmol/L White Blood Count 3.67 4.8-10.8 K/uL Red Blood Count 4.17 4.2-5.4 M/uL Hemoglobin 12.4 12.0-16.0 g/dL Hematocrit 36.9 37-47 % Mean Corpuscular Volume 88.5 80-100 fL Mean Corpuscular Hemoglobin 29.7 25-34 pg Mean Corpuscular Hemoglobin Concent 33.6 32-36 g/dl RDW Standard Deviation 43.2 36.4-46.3 fL RDW Coefficient of Variation 13.2 11.5-14.5 % Platelet Count 177 130-400 K/uL Mean Platelet Volume 9.0 7.4-10.4 fL Sodium Level 140 136-145 mmol/L Potassium Level 3.9 3.5-5.1 mmol/L Chloride Level 110 98-107 mmol/L Carbon Dioxide Level 24 21-32 mmol/L Anion Gap 6.0 3-11 mmol/L Blood Urea Nitrogen 9 7-18 mg/dl Creatinine 0.67 0.60-1.20 mg/dl Est Creatinine Clear Calc Drug Dose 84.6 ml/min Estimated GFR () 111.5 Estimated GFR (Non- 96.2 BUN/Creatinine Ratio 12.7 10-20 Random Glucose 87 70-99 mg/dl Calcium Level 8.0 8.5-10.1 mg/dl Hepatitis C Antibody Screen NEG NEG Microbiology Results 11/05/17 Group A Streptococcus Screen - Final, Resulted SPECIMEN NEGATIVE FOR GROUP A BETA ST... 11/05/17 Group A Streptococcus Screen ([facility]) - Preliminary, Resulted NO BETA STREP ISOLATED TO DATE.
[2017-11-06] MEDS: ACETAMINOPHEN 325 MG TAB PO PRN (18:25)
[2017-11-07] VITALS (7 sets, daily range): BP systolic 92–124; BP diastolic 53–75; PULSE 60–93; TEMP 36.4–37; O2SAT 93–100
[2017-11-07] MEDS: ACETAMINOPHEN 325 MG TAB PO PRN (00:27)
[2017-11-07] MEDS: SODIUM CHLORIDE 0.9% 1000ML 1,000 ML IV SCH ×2 (02:07→13:45)
[2017-11-07] MEDS: PIPERACILL/TAZOBAC IV 3.375 GM in DEXTROSE 5% 100ML 100 ML IV SCH ×4 (02:08→20:04)
--- NOTE | 2017-11-07 06:43 | Surgery Progress Note ---
Surgery Progress Note Date of Service Nov 07, 2017. Subjective feels ok- chest congestion bothering her most cony clear liquids Objective Vital Signs: Date Time Temp Pulse Resp B/P (MAP) Pulse Ox O2 Delivery O2 Flow Rate FiO2 11/07/17 02:32 37.0 11/07/17 00:22 93 Room Air 11/06/17 23:40 37.3 75 18 96/59 (71) 93 Room Air 11/06/17 16:00 95 Room Air 11/06/17 15:23 36.9 66 18 96/58 (71) 95 Room Air 11/06/17 12:59 36.5 68 16 92/50 (64) 95 Room Air 11/06/17 12:00 36.5 63 16 96/59 (71) 92 11/06/17 11:07 36.5 63 18 93/56 (68) 91 Room Air 11/06/17 10:30 36.7 65 16 92/59 (70) 92 Room Air 11/06/17 10:17 68 17 96 11/06/17 10:17 68 17 11/06/17 10:16 98/59 11/06/17 10:12 70 13 96 11/06/17 10:12 69 13 11/06/17 10:11 96/58 11/06/17 10:07 69 15 11/06/17 10:07 69 15 95 11/06/17 10:05 95/60 11/06/17 10:05 36.2 86 18 95/60 96 Nasal Cannula 2 11/06/17 10:02 73 15 96 11/06/17 10:02 73 15 11/06/17 10:01 72 15 11/06/17 10:01 72 15 93/62 95 11/06/17 09:56 71 12 11/06/17 09:56 71 12 97 11/06/17 09:55 96/62 11/06/17 09:51 71 12 94/61 97 11/06/17 09:51 71 12 11/06/17 09:50 71 13 11/06/17 09:50 71 13 96 11/06/17 09:46 93/56 11/06/17 09:45 74 18 11/06/17 09:45 74 18 93/60 98 11/06/17 09:42 90/ 11/06/17 09:40 77 14 11/06/17 09:40 77 14 98 11/06/17 09:36 99/64 11/06/17 09:35 74 23 11/06/17 09:35 73 23 98 11/06/17 09:30 87 20 118/72 100 11/06/17 09:30 36.6 86 18 118/72 100 Oxymask 10 11/06/17 09:30 87 20 11/06/17 08:06 37.6 76 20 98/56 (70) 96 Room Air 11/06/17 08:00 Room Air General Appearance: no apparent distress Respiratory/Chest: no respiratory distress Abdomen: soft Incision(s): dry, intact Laboratory Results: Results Past 24 Hours Test 11/06/17 07:36 11/07/17 04:44 Range/Units White Blood Count 3.67 4.8-10.8 K/uL Red Blood Count 4.17 4.2-5.4 M/uL Hemoglobin 12.4 12.0-16.0 g/dL Hematocrit 36.9 37-47 % Mean Corpuscular Volume 88.5 80-100 fL Mean Corpuscular Hemoglobin 29.7 25-34 pg Mean Corpuscular Hemoglobin Concent 33.6 32-36 g/dl RDW Standard Deviation 43.2 36.4-46.3 fL RDW Coefficient of Variation 13.2 11.5-14.5 % Platelet Count 177 130-400 K/uL Mean Platelet Volume 9.0 7.4-10.4 fL Sodium Level 140 136-145 mmol/L Potassium Level 3.9 3.5-5.1 mmol/L Chloride Level 110 98-107 mmol/L Carbon Dioxide Level 24 21-32 mmol/L Anion Gap 6.0 3-11 mmol/L Blood Urea Nitrogen 9 7-18 mg/dl Creatinine 0.67 0.60-1.20 mg/dl Est Creatinine Clear Calc Drug Dose 84.6 ml/min Estimated GFR () 111.5 Estimated GFR (Non- 96.2 BUN/Creatinine Ratio 12.7 10-20 Random Glucose 87 70-99 mg/dl Calcium Level 8.0 8.5-10.1 mg/dl Hepatitis C Antibody Screen NEG NEG Microbiology Results 11/06/17 Blood Culture, Received Pending 11/06/17 Blood Culture, Received Pending Assessment & Plan 11/07/17- s/p laparoscopic appendectomy- likely sxs from enteritis- appendix w/o signif inflammation. Adv diet, will d/c on atbx when med stable- possibly tomorrow depending on progress and med team w/u 11/06/17- I feel we should proceed with diagnostic laparoscopy/ appendectomy pain is significant. start Zosyn 11/06/17- I feel we should proceed with diagnostic laparoscopy/ appendectomy pain is significant. start Zosyn
[2017-11-07 08:00] LABS: HEMATOCRIT 33.2 % (37-47); MEAN CORPUSCULAR HEMOGLOBIN 29.8 pg (25-34); MEAN CORPUSCULAR HGB CONC 33.1 g/dl (32-36); MEAN PLATELET VOLUME 9.3 fL (7.4-10.4); PLATELET COUNT 176 K/uL (130-400); RED CELL DISTRIBUTION WIDTH CV 13.6 % (11.5-14.5); WHITE BLOOD COUNT 3.73 K/uL (4.8-10.8)
[2017-11-07] MEDS: MAGNESIUM OXIDE 400 MG TAB PO SCH ×2 (08:15→20:05)
[2017-11-07] MEDS: CITALOPRAM 20 MG TAB PO SCH (08:15)
[2017-11-07] MEDS: OSELTAMIVIR PHOSPHATE 75 MG CAP PO SCH ×2 (08:16→20:05)
[2017-11-07] MEDS: ESTROGENS, CONJUGATED 0.625 MG TAB PO SCH (08:16)
[2017-11-07 08:17] LABS: ALBUMIN 2.5 gm/dl (3.4-5.0); CALCIUM 7.8 mg/dl (8.5-10.1); CREATININE 0.84 mg/dl (0.60-1.20); POTASSIUM 3.4 mmol/L (3.5-5.1)
[2017-11-07] MEDS: TOPIRAMATE 25 MG TAB PO SCH ×2 (08:17→20:05)
[2017-11-07 08:22] LABS: TOTAL PROTEIN 5.9 gm/dl (6.4-8.2)
[2017-11-07 08:27] LABS: BASO % 0.3 %; BASO ABS # 0.01 K/uL (0-0.2); EOS % 1.3 %; EOS ABS # 0.05 K/uL (0-0.5); LYMPH % 28.4 %; LYMPH ABS # 1.06 K/uL (1.2-3.4); MONO ABS # 0.26 K/uL (0.11-0.59); NEUT ABS # 2.35 K/uL (1.4-6.5)
--- NOTE | 2017-11-07 13:41 | Anesthesiology Progress Note ---
Anesthesia Post Op Note Date & Time Nov 07, 2017 at 13:39 Vital Signs Pain Intensity: 4.0 Vital Signs Past 12 Hours Date Time Temp Pulse Resp B/P (MAP) Pulse Ox O2 Delivery O2 Flow Rate FiO2 11/07/17 08:10 Room Air 11/07/17 07:28 36.4 60 18 92/53 (66) 96 Room Air 11/07/17 02:32 37.0 Notes Mental Status: alert / awake / arousable, participated in evaluation Pt Amnestic to Procedure: Yes Nausea / Vomiting: adequately controlled Pain: adequately controlled Airway Patency, RR, SpO2: stable & adequate BP & HR: stable & adequate Hydration State: stable & adequate Awake alert, pain controlled with medication at rest pain scale at 2. No complaints with anesthesia care. VSS
[2017-11-07] MEDS ORDERED: AMOX875T PO (16:25)
[2017-11-07] MEDS ORDERED: HYDR-5688 PO (16:25)
--- NOTE | 2017-11-07 16:28 | Discharge Instructions ---
Discharge Instructions Date of Service Nov 07, 2017. Admission Reason for Admission: Flu-Like Symptoms Discharge Discharge Diagnosis / Problem: acute abdominal pain, bronchitis Discharge Goals Goal(s): Decrease discomfort, Improve function, Improve disease control Activity Recommendations Activity Limitations: as noted below Lifting Limitations: no more than 25 pounds Exercise/Sports Limitations: until after follow-up appointment May Resume Sexual Activity: when tolerated Shower/Bathe: no limitations (may shower) Driving or Machine Use: no limitations . Instructions / Follow-Up Instructions / Follow-Up SPECIAL CARE INSTRUCTIONS: * Cover incisions and change daily for comfort/drainage. May leave uncovered with dermabond * Leave steri strips in place * May use ibuprofen for pain as tolerated. * Expect some swelling and bruising. Call your doctor if: * Temperature above 101 degrees * Pain not relieved by pain medicine ordered * There is increased drainage or redness from any incision * You have any unanswered questions or concerns [phone]. FOLLOW UP VISIT: If not already scheduled, please call the office for a follow-up visit. for 2 weeks- check up- no sutures to remove OFFICE PHONE NUMBER: Dr. Trejo Office Current Hospital Diet Patient's current hospital diet: Regular Diet Discharge Diet Recommended Diet: Regular Diet Procedures Procedures Performed: Laparoscopic Appendectomy Pending Studies Studies pending at discharge: no Work Instructions Return To Work: 1 week (will need 1-2 weeks recovery- call office with questions) Medical Emergencies . Who to Call and When: Medical Emergencies: If at any time you feel your situation is an emergency, please call 911 immediately. . Non-Emergent Contact Non-Emergency issues call your: Primary Care Provider, Surgeon . "Provider Documentation" section prepared by Ryan Trejo. . VTE Core Measure Inpt VTE Proph given/why not?: Unfractionated heparin SQ, SCD's
[2017-11-07] MEDS ORDERED: POTASSIUM CHLORIDE 20 MEQ TABCR PO STA (18:51)
--- NOTE | 2017-11-07 18:55 | Progress Note ---
Internal Med Progress Note Date of Service: Nov 07, 2017. Provider Documentation: SUBJECTIVE: Patient awake and in no distress. Patient denies abdominal pain OBJECTIVE: General- no acute distress Neck- no JVD, trachea midline Lungs- CTABL, no wheezing Heart- RRR, no murmur Abdomen- soft, nontender, + bowel sounds, dressing over left abdomen Extremities- nontender Neuro- awake and alert and oriented ASSESSMENT & PLAN: 57 year old female who presents to the ED with Abdominal pain, fevers, and sinus congestion. RLQ ABDOMINAL PAIN / fever CT abd/pelvis negative for acute findings patient was started on Zosyn on 11/06/17 and had Laparoscopic Appendectomy performed as [facility] the abdominal pain was likely symptoms from from enteritis as the appendix was without significant inflammation send stool culture f/u blood cultures from 11/06/17 Upper respiratory symptoms / fever rapid influenza negative however will empirically continue treatment with Tamiflu which was started from 11/05/17 Patient denies dysuria urine Culture from 11/05/17 resulted as LACTOBACILLUS SPECIES SENSITIVITY TO FOLLOW DEPRESSION continue citalopram MIGRAINES continue topiramate DVT PROPHYLAXIS : SCDs Vital Signs: Date Time Temp Pulse Resp B/P (MAP) Pulse Ox O2 Delivery O2 Flow Rate FiO2 11/07/17 17:00 36.9 61 18 108/71 (83) 100 Room Air 11/07/17 16:00 96 Room Air 11/07/17 14:58 36.6 93 22 124/75 (91) 96 Nasal Cannula 2.0 11/07/17 08:10 Room Air 11/07/17 07:28 36.4 60 18 92/53 (66) 96 Room Air 11/07/17 02:32 37.0 11/07/17 00:22 93 Room Air 11/06/17 23:40 37.3 75 18 96/59 (71) 93 Room Air Lab Results: Results Past 24 Hours Test 11/07/17 07:26 Range/Units White Blood Count 3.73 4.8-10.8 K/uL Red Blood Count 3.69 4.2-5.4 M/uL Hemoglobin 11.0 12.0-16.0 g/dL Hematocrit 33.2 37-47 % Mean Corpuscular Volume 90.0 80-100 fL Mean Corpuscular Hemoglobin 29.8 25-34 pg Mean Corpuscular Hemoglobin Concent 33.1 32-36 g/dl Platelet Count 176 130-400 K/uL Mean Platelet Volume 9.3 7.4-10.4 fL Neutrophils (%) (Auto) 63.0 % Lymphocytes (%) (Auto) 28.4 % Monocytes (%) (Auto) 7.0 % Eosinophils (%) (Auto) 1.3 % Basophils (%) (Auto) 0.3 % Neutrophils # (Auto) 2.35 1.4-6.5 K/uL Lymphocytes # (Auto) 1.06 1.2-3.4 K/uL Monocytes # (Auto) 0.26 0.11-0.59 K/uL Eosinophils # (Auto) 0.05 0-0.5 K/uL Basophils # (Auto) 0.01 0-0.2 K/uL RDW Standard Deviation 45.0 36.4-46.3 fL RDW Coefficient of Variation 13.6 11.5-14.5 % Immature Granulocyte % (Auto) 0.0 % Immature Granulocyte # (Auto) 0.00 0.00-0.02 K/uL Sodium Level 140 136-145 mmol/L Potassium Level 3.4 3.5-5.1 mmol/L Chloride Level 110 98-107 mmol/L Carbon Dioxide Level 24 21-32 mmol/L Anion Gap 6.0 3-11 mmol/L Blood Urea Nitrogen 6 7-18 mg/dl Creatinine 0.84 0.60-1.20 mg/dl Est Creatinine Clear Calc Drug Dose 67.5 ml/min Estimated GFR () 88.2 Estimated GFR (Non- 76.1 BUN/Creatinine Ratio 7.3 10-20 Random Glucose 86 70-99 mg/dl Calcium Level 7.8 8.5-10.1 mg/dl Total Bilirubin 0.3 0.2-1 mg/dl Aspartate Amino Transf (AST/SGOT) 18 15-37 U/L Alanine Aminotransferase (ALT/SGPT) 15 12-78 U/L Alkaline Phosphatase 59 45-117 U/L Total Protein 5.9 6.4-8.2 gm/dl Albumin 2.5 3.4-5.0 gm/dl Globulin 3.4 2.5-4.0 gm/dl Albumin/Globulin Ratio 0.7 0.9-2
[2017-11-08] MEDS: PIPERACILL/TAZOBAC IV 3.375 GM in DEXTROSE 5% 100ML 100 ML IV SCH (02:19)
[2017-11-08] MEDS: SODIUM CHLORIDE 0.9% 1000ML 1,000 ML IV SCH ×2 (02:20→14:35)
--- NOTE | 2017-11-08 06:24 | Surgery Progress Note ---
Surgery Progress Note Date of Service Nov 08, 2017. Subjective resp sxs improving- now diarrhea Objective Vital Signs: Date Time Temp Pulse Resp B/P (MAP) Pulse Ox O2 Delivery O2 Flow Rate FiO2 11/08/17 00:45 Room Air 11/07/17 23:51 36.6 87 20 113/74 (87) 96 Room Air 11/07/17 17:00 36.9 61 18 108/71 (83) 100 Room Air 11/07/17 16:00 96 Room Air 11/07/17 14:58 36.6 93 22 124/75 (91) 96 Nasal Cannula 2.0 11/07/17 08:10 Room Air 11/07/17 07:28 36.4 60 18 92/53 (66) 96 Room Air General Appearance: no apparent distress Respiratory/Chest: no respiratory distress Abdomen: soft Incision(s): intact Laboratory Results: Results Past 24 Hours Test 11/07/17 07:26 11/08/17 04:44 Range/Units White Blood Count 3.73 4.8-10.8 K/uL Red Blood Count 3.69 4.2-5.4 M/uL Hemoglobin 11.0 12.0-16.0 g/dL Hematocrit 33.2 37-47 % Mean Corpuscular Volume 90.0 80-100 fL Mean Corpuscular Hemoglobin 29.8 25-34 pg Mean Corpuscular Hemoglobin Concent 33.1 32-36 g/dl Platelet Count 176 130-400 K/uL Mean Platelet Volume 9.3 7.4-10.4 fL Neutrophils (%) (Auto) 63.0 % Lymphocytes (%) (Auto) 28.4 % Monocytes (%) (Auto) 7.0 % Eosinophils (%) (Auto) 1.3 % Basophils (%) (Auto) 0.3 % Neutrophils # (Auto) 2.35 1.4-6.5 K/uL Lymphocytes # (Auto) 1.06 1.2-3.4 K/uL Monocytes # (Auto) 0.26 0.11-0.59 K/uL Eosinophils # (Auto) 0.05 0-0.5 K/uL Basophils # (Auto) 0.01 0-0.2 K/uL RDW Standard Deviation 45.0 36.4-46.3 fL RDW Coefficient of Variation 13.6 11.5-14.5 % Immature Granulocyte % (Auto) 0.0 % Immature Granulocyte # (Auto) 0.00 0.00-0.02 K/uL Sodium Level 140 136-145 mmol/L Potassium Level 3.4 3.5-5.1 mmol/L Chloride Level 110 98-107 mmol/L Carbon Dioxide Level 24 21-32 mmol/L Anion Gap 6.0 3-11 mmol/L Blood Urea Nitrogen 6 7-18 mg/dl Creatinine 0.84 0.60-1.20 mg/dl Est Creatinine Clear Calc Drug Dose 67.5 ml/min Estimated GFR () 88.2 Estimated GFR (Non- 76.1 BUN/Creatinine Ratio 7.3 10-20 Random Glucose 86 70-99 mg/dl Calcium Level 7.8 8.5-10.1 mg/dl Total Bilirubin 0.3 0.2-1 mg/dl Aspartate Amino Transf (AST/SGOT) 18 15-37 U/L Alanine Aminotransferase (ALT/SGPT) 15 12-78 U/L Alkaline Phosphatase 59 45-117 U/L Total Protein 5.9 6.4-8.2 gm/dl Albumin 2.5 3.4-5.0 gm/dl Globulin 3.4 2.5-4.0 gm/dl Albumin/Globulin Ratio 0.7 0.9-2 Microbiology Results 11/08/17 Shiga Toxin Test, Received Pending 11/08/17 Stool Culture, Received Pending Assessment & Plan 11/08/17- will stop IV atbx, add po atbx- resp/GI . stable from surgical standpoint diarrhea not surprising. Instructions in EMR w/ scripts 11/07/17- s/p laparoscopic appendectomy- likely sxs from enteritis- appendix w/o signif inflammation. Adv diet, will d/c on atbx when med stable- possibly tomorrow depending on progress and med team w/u 11/06/17- I feel we should proceed with diagnostic laparoscopy/ appendectomy pain is significant. start Zosyn 11/07/17- s/p laparoscopic appendectomy- likely sxs from enteritis- appendix w/o signif inflammation. Adv diet, will d/c on atbx when med stable- possibly tomorrow depending on progress and med team w/u 11/06/17- I feel we should proceed with diagnostic laparoscopy/ appendectomy pain is significant. start Zosyn
[2017-11-08 07:21] LABS: BASO % 0.3 %; BASO ABS # 0.01 K/uL (0-0.2); EOS % 2.7 %; EOS ABS # 0.09 K/uL (0-0.5); HEMATOCRIT 33.2 % (37-47); IG# 0.01 K/uL (0.00-0.02); LYMPH % 33.8 %; LYMPH ABS # 1.13 K/uL (1.2-3.4); MEAN CELL VOLUME 89.7 fL (80-100); MEAN CORPUSCULAR HEMOGLOBIN 29.7 pg (25-34); MEAN CORPUSCULAR HGB CONC 33.1 g/dl (32-36); MEAN PLATELET VOLUME 9.4 fL (7.4-10.4); MONO % 7.5 %; MONO ABS # 0.25 K/uL (0.11-0.59); NEUT % 55.4 %; NEUT ABS # 1.85 K/uL (1.4-6.5); PLATELET COUNT 178 K/uL (130-400); RED CELL DISTRIBUTION WIDTH CV 13.7 % (11.5-14.5); RED CELL DISTRIBUTION WIDTH SD 45.2 fL (36.4-46.3); WHITE BLOOD COUNT 3.34 K/uL (4.8-10.8)
[2017-11-08 07:57] LABS: ALBUMIN 2.5 gm/dl (3.4-5.0); CALCIUM 8.1 mg/dl (8.5-10.1); CREATININE 0.74 mg/dl (0.60-1.20); POTASSIUM 4.2 mmol/L (3.5-5.1)
[2017-11-08 07:59] LABS: TOTAL PROTEIN 5.8 gm/dl (6.4-8.2)
[2017-11-08] MEDS ORDERED: AMOXICILLIN/CLAVULANATE TAB 875 MG TAB PO SCH (08:00)
[2017-11-08 08:05] VITALS: BP 106/68; PULSE 59; TEMP 36.4; O2SAT 99
[2017-11-08] MEDS: OSELTAMIVIR PHOSPHATE 75 MG CAP PO SCH (08:38)
[2017-11-08] MEDS: TOPIRAMATE 25 MG TAB PO SCH (08:38)
[2017-11-08] MEDS: CITALOPRAM 20 MG TAB PO SCH (08:38)
[2017-11-08] MEDS: ESTROGENS, CONJUGATED 0.625 MG TAB PO SCH (08:39)
[2017-11-08] MEDS: MAGNESIUM OXIDE 400 MG TAB PO SCH (08:39)
[2017-11-08 15:18] VITALS: BP 116/77; PULSE 73; TEMP 36.6; O2SAT 96
--- NOTE | 2017-11-08 15:22 | Progress Note ---
Internal Med Progress Note Date of Service: Nov 08, 2017. Provider Documentation: SUBJECTIVE: Patient awake and in no distress. Patient had diarrhea. C.diff negative OBJECTIVE: General- no acute distress Neck- no JVD, trachea midline Lungs- CTABL, no wheezing Heart- RRR, no murmur Abdomen- soft, nontender, + bowel sounds, dressing over left abdomen Extremities- nontender Neuro- awake and alert and oriented ASSESSMENT & PLAN: 57 year old female who presents to the ED with Abdominal pain, fevers, and sinus congestion. RLQ ABDOMINAL PAIN / fever -CT abd/pelvis negative for acute findings -patient was started on Zosyn on 11/06/17 and had Laparoscopic Appendectomy performed -as per general surgery service the abdominal pain was likely symptoms from from enteritis as the appendix was without significant inflammation -11/07/17 stool specimen sent: results pending for stool culture / shiga -11/08/17 stool specimen sent and negative for C.difficile -Patient to be discharged with Augmentin for enteritis and Hydrocodone/ Acetaminophen by surgery service Dr. Trejo Upper respiratory symptoms / fever -rapid influenza negative however was empirically on Tamiflu which was started from 11/05/17. Tamiflu to be stopped on discharge -blood cultures from 11/06/17 no growth to date Urine Culture from 11/05/17 resulted as LACTOBACILLUS SPECIES -Patient denies dysuria Patient has follow up appointment with 11/13/2017 3:00 PM Bruno Adkins MD Internal Medicine [facility] Other discharge instructions Activity Recommendations Activity Limitations: as noted below Lifting Limitations: no more than 25 pounds Exercise/Sports Limitations: until after follow-up appointment May Resume Sexual Activity: when tolerated Shower/Bathe: no limitations (may shower) Driving or Machine Use: no limitations * Cover incisions and change daily for comfort/drainage. May leave uncovered with dermabond * Leave steri strips in place * May use ibuprofen for pain as tolerated. * Expect some swelling and bruising. Call your doctor if: * Temperature above 101 degrees * Pain not relieved by pain medicine ordered * There is increased drainage or redness from any incision * You have any unanswered questions or concerns [phone]. FOLLOW UP VISIT: If not already scheduled, please call the office for a follow-up visit. for 2 weeks- check up- no sutures to remove OFFICE PHONE NUMBER: Dr. Trejo Office Work Instructions Return To Work: 1 week (will need 1-2 weeks recovery- call office with questions) Vital Signs: Date Time Temp Pulse Resp B/P (MAP) Pulse Ox O2 Delivery O2 Flow Rate FiO2 11/08/17 15:18 36.6 73 18 116/77 (90) 96 11/08/17 15:09 36.4 59 16 99 Room Air 11/08/17 08:05 36.4 59 16 106/68 (81) 99 Room Air 11/08/17 07:51 Room Air 11/08/17 00:45 Room Air 11/07/17 23:51 36.6 87 20 113/74 (87) 96 Room Air 11/07/17 17:00 36.9 61 18 108/71 (83) 100 Room Air 11/07/17 16:00 96 Room Air Lab Results: Results Past 24 Hours Test 11/08/17 06:33 Range/Units White Blood Count 3.34 4.8-10.8 K/uL Red Blood Count 3.70 4.2-5.4 M/uL Hemoglobin 11.0 12.0-16.0 g/dL Hematocrit 33.2 37-47 % Mean Corpuscular Volume 89.7 80-100 fL Mean Corpuscular Hemoglobin 29.7 25-34 pg Mean Corpuscular Hemoglobin Concent 33.1 32-36 g/dl Platelet Count 178 130-400 K/uL Mean Platelet Volume 9.4 7.4-10.4 fL Neutrophils (%) (Auto) 55.4 % Lymphocytes (%) (Auto) 33.8 % Monocytes (%) (Auto) 7.5 % Eosinophils (%) (Auto) 2.7 % Basophils (%) (Auto) 0.3 % Neutrophils # (Auto) 1.85 1.4-6.5 K/uL Lymphocytes # (Auto) 1.13 1.2-3.4 K/uL Monocytes # (Auto) 0.25 0.11-0.59 K/uL Eosinophils # (Auto) 0.09 0-0.5 K/uL Basophils # (Auto) 0.01 0-0.2 K/uL RDW Standard Deviation 45.2 36.4-46.3 fL RDW Coefficient of Variation 13.7 11.5-14.5 % Immature Granulocyte % (Auto) 0.3 % Immature Granulocyte # (Auto) 0.01 0.00-0.02 K/uL Sodium Level 140 136-145 mmol/L Potassium Level 4.2 3.5-5.1 mmol/L Chloride Level 112 98-107 mmol/L Carbon Dioxide Level 22 21-32 mmol/L Anion Gap 6.0 3-11 mmol/L Blood Urea Nitrogen 6 7-18 mg/dl Creatinine 0.74 0.60-1.20 mg/dl Est Creatinine Clear Calc Drug Dose 76.6 ml/min Estimated GFR () 102.8 Estimated GFR (Non- 88.7 BUN/Creatinine Ratio 7.8 10-20 Random Glucose 82 70-99 mg/dl Calcium Level 8.1 8.5-10.1 mg/dl Total Bilirubin 0.3 0.2-1 mg/dl Aspartate Amino Transf (AST/SGOT) 30 15-37 U/L Alanine Aminotransferase (ALT/SGPT) 27 12-78 U/L Alkaline Phosphatase 87 45-117 U/L Total Protein 5.8 6.4-8.2 gm/dl Albumin 2.5 3.4-5.0 gm/dl Globulin 3.3 2.5-4.0 gm/dl Albumin/Globulin Ratio 0.8 0.9-2 Microbiology Results 11/08/17 C.difficile Toxin B Gene (PCR) - Final, Complete No C. difficile toxin B gene detected 11/08/17 Shiga Toxin Test, Received Pending 11/08/17 Stool Culture, Received Pending
--- NOTE | 2017-11-08 15:31 | Discharge Instructions ---
Discharge Instructions Date of Service Nov 08, 2017. Admission Reason for Admission: Flu-Like Symptoms Discharge Discharge Diagnosis / Problem: fever, right lower quadrant abdominal pain, appendectomy, enteritis Discharge Goals Goal(s): Decrease discomfort, Improve function Activity Recommendations Activity Limitations: as noted below Lifting Limitations: no more than 25 pounds Exercise/Sports Limitations: until after follow-up appointment May Resume Sexual Activity: when tolerated Shower/Bathe: no limitations Driving or Machine Use: no limitations . Instructions / Follow-Up Instructions / Follow-Up 57 year old female who presents to the ED with Abdominal pain, fevers, and sinus congestion. RLQ ABDOMINAL PAIN / fever -CT abd/pelvis negative for acute findings -patient was started on Zosyn on 11/06/17 and had Laparoscopic Appendectomy performed -as per general surgery service the abdominal pain was likely symptoms from from enteritis as the appendix was without significant inflammation -11/07/17 stool specimen sent: results pending for stool culture / shiga -11/08/17 stool specimen sent and negative for C.difficile -Patient to be discharged with Augmentin for enteritis and Hydrocodone/ Acetaminophen by surgery service Dr. Trejo Upper respiratory symptoms / fever -rapid influenza negative however was empirically on Tamiflu which was started from 11/05/17. Tamiflu to be stopped on discharge -blood cultures from 11/06/17 no growth to date Urine Culture from 11/05/17 resulted as LACTOBACILLUS SPECIES -Patient denies dysuria Patient has follow up appointment with 11/13/2017 3:00 PM Bruno Adkins MD Internal Medicine [facility] Other discharge instructions Activity Recommendations Activity Limitations: as noted below Lifting Limitations: no more than 25 pounds Exercise/Sports Limitations: until after follow-up appointment May Resume Sexual Activity: when tolerated Shower/Bathe: no limitations (may shower) Driving or Machine Use: no limitations * Cover incisions and change daily for comfort/drainage. May leave uncovered with dermabond * Leave steri strips in place * May use ibuprofen for pain as tolerated. * Expect some swelling and bruising. Call your doctor if: * Temperature above 101 degrees * Pain not relieved by pain medicine ordered * There is increased drainage or redness from any incision * You have any unanswered questions or concerns [phone]. FOLLOW UP VISIT: If not already scheduled, please call the office for a follow-up visit. for 2 weeks- check up- no sutures to remove OFFICE PHONE NUMBER: Dr. Trejo Office Work Instructions Return To Work: 1 week (will need 1-2 weeks recovery- call office with questions) Current Hospital Diet Patient's current hospital diet: Regular Diet Discharge Diet Recommended Diet: Regular Diet Procedures Procedures Performed: Laparoscopic Appendectomy Pending Studies Studies pending at discharge: yes List of pending studies: 11/07/17 stool specimen sent: results pending for stool culture / shiga Laboratory Results 11/08/17 06:33 Red Blood Count 3.70, Mean Corpuscular Volume 89.7, Mean Corpuscular Hemoglobin 29.7, Mean Corpuscular Hemoglobin Concent 33.1, Mean Platelet Volume 9.4, Neutrophils (%) (Auto) 55.4, Lymphocytes (%) (Auto) 33.8, Monocytes (%) (Auto) 7.5, Eosinophils (%) (Auto) 2.7, Basophils (%) (Auto) 0.3, Neutrophils # (Auto) 1.85, Lymphocytes # (Auto) 1.13, Monocytes # (Auto) 0.25, Eosinophils # (Auto) 0.09, Basophils # (Auto) 0.01 11/08/17 06:33 Test 11/05/17 18:00 11/05/17 18:10 11/05/17 18:20 11/05/17 19:59 Urine Color YELLOW Urine Appearance CLEAR (CLEAR) Urine pH 8.5 (4.5-7.5) Urine Specific [place] 1.016 (1.000-1.030) Urine Protein NEG (NEG) Urine Glucose (UA) NEG (NEG) Urine Ketones NEG (NEG) Urine Occult Blood NEG (NEG) Urine Nitrite NEG (NEG) Urine Bilirubin NEG (NEG) Urine Urobilinogen NEG (NEG) Urine Leukocyte Esterase NEG (NEG) Urine WBC (Auto) 1-5 /hpf (0-5) Urine RBC (Auto) 0-4 /hpf (0-4) Urine Hyaline Casts (Auto) 1-5 /lpf (0-5) Urine Epithelial Cells (Auto) >30 /lpf (0-5) Urine Bacteria (Auto) 1+ (NEG) Urine Test NEG (NEG) Magnesium Level 1.7 mg/dl (1.8-2.4) Direct Bilirubin < 0.1 mg/dl (0-0.2) Lipase 154 U/L (73-393) Influenza Type A Antigen Neg for Influ A (NEG) Influenza Type B Antigen Neg for Influ B (NEG) Bedside Lactic Acid Venous 0.44 mmol/L (0.90-1.70) Test 11/05/17 21:14 11/06/17 07:36 11/08/17 06:33 Lactic Acid Level 0.5 mmol/L (0.4-2.0) Hepatitis C Antibody Screen NEG (NEG) White Blood Count 3.34 K/uL (4.8-10.8) Red Blood Count 3.70 M/uL (4.2-5.4) Hemoglobin 11.0 g/dL (12.0-16.0) Hematocrit 33.2 % (37-47) Mean Corpuscular Volume 89.7 fL (80-100) Mean Corpuscular Hemoglobin 29.7 pg (25-34) Mean Corpuscular Hemoglobin Concent 33.1 g/dl (32-36) Platelet Count 178 K/uL (130-400) Mean Platelet Volume 9.4 fL (7.4-10.4) Neutrophils (%) (Auto) 55.4 % Lymphocytes (%) (Auto) 33.8 % Monocytes (%) (Auto) 7.5 % Eosinophils (%) (Auto) 2.7 % Basophils (%) (Auto) 0.3 % Neutrophils # (Auto) 1.85 K/uL (1.4-6.5) Lymphocytes # (Auto) 1.13 K/uL (1.2-3.4) Monocytes # (Auto) 0.25 K/uL (0.11-0.59) Eosinophils # (Auto) 0.09 K/uL (0-0.5) Basophils # (Auto) 0.01 K/uL (0-0.2) RDW Standard Deviation 45.2 fL (36.4-46.3) RDW Coefficient of Variation 13.7 % (11.5-14.5) Immature Granulocyte % (Auto) 0.3 % Immature Granulocyte # (Auto) 0.01 K/uL (0.00-0.02) Anion Gap 6.0 mmol/L (3-11) Est Creatinine Clear Calc Drug Dose 76.6 ml/min Estimated GFR () 102.8 Estimated GFR (Non- 88.7 BUN/Creatinine Ratio 7.8 (10-20) Calcium Level 8.1 mg/dl (8.5-10.1) Total Bilirubin 0.3 mg/dl (0.2-1) Aspartate Amino Transf (AST/SGOT) 30 U/L (15-37) Alanine Aminotransferase (ALT/SGPT) 27 U/L (12-78) Alkaline Phosphatase 87 U/L (45-117) Total Protein 5.8 gm/dl (6.4-8.2) Albumin 2.5 gm/dl (3.4-5.0) Globulin 3.3 gm/dl (2.5-4.0) Albumin/Globulin Ratio 0.8 (0.9-2) Date/Time Source Procedure Growth Status 11/06/17 18:46 Blood Blood Culture - Preliminary NO GROWTH TO DATE. Resulted 11/05/17 18:26 Throat Group A Streptococcus Screen - Final SPECIMEN NEGATIVE FOR GROUP A BETA ST... Complete 11/05/17 18:26 Throat Group A Streptococcus Screen (PARVEZ) - Final NO BETA STREP. ISOLATED. Complete 11/08/17 06:06 Stool C.difficile Toxin B Gene (PCR) - Final No C. difficile toxin B gene detected Complete 11/05/17 18:00 Urine , Clean Catch Urine Culture - Final Lactobacillus Species Complete Work Instructions Return To Work: 1 week (will need 1-2 weeks recovery- call office with questions) Medical Emergencies . Who to Call and When: Medical Emergencies: If at any time you feel your situation is an emergency, please call 911 immediately. . Non-Emergent Contact Non-Emergency issues call your: Primary Care Provider, Surgeon Call Non-Emergent contact if: you have any medication questions . . "Provider Documentation" section prepared by Chico Cuellar. . VTE Core Measure Inpt VTE Proph given/why not?: Unfractionated heparin SQ, SCD's
--- NOTE | 2017-11-08 15:32 | Discharge Summary ---
Discharge Summary Date of Service Nov 08, 2017. Discharge Summary Admission Date: Nov 07, 2017 at 19:00 Discharge Date: Nov 08, 2017 Discharge Disposition: Home Principal Diagnosis: fever, right lower quadrant abdominal pain, appendectomy, enteritis Pending Studies/Follow-Up: stool culture /shiga Medication Reconciliation New Medications: Amoxicillin & Pot Clavulanate (Augmentin 875-125 mg) 1 Tab Tab 1 TAB PO BID, #10 TAB Hydrocodone/Acetaminophen 5MG/325MG ([place] 5MG/325MG) Tab 1-2 TABLET PO q 6 hrs PRN for Pain, #30 TAB PRN PAIN Continued Medications: Citalopram Hydrobromide (Celexa) 20 Mg Tab 20 MG PO QAM Cyclobenzaprine Hcl (Flexeril) 10 Mg Tab 1 TAB PO TID PRN for Muscle Spasms for 30 Days, #90 TAB Estrogens, Conjugated (Premarin) 0.625 Mg Tab 0.625 MG PO QAM Topiramate (Topamax) 50 Mg Tab 1 TAB PO BID for 30 Days, #60 TAB 1 Refill Tramadol (Ultram) 50 Mg Tab 50 MG PO Q6H PRN for Pain, TAB Admission Information HPI (per Admitting provider): 57 year old female who presents to the ED with RLQ abdominal pain, fevers, and sinus congestion. Patient reports that she developed the RLQ pain 5 days ago. Pain has been persistent. She describes it as a constant ache. It will radiate around the side to the back at times. She did not try any OTC medicines at home for the pain. No changes in bowel habits, denies vomiting, diarrhea, and constipation. No urinary symptoms. Yesterday she developed body aches, fevers, nausea, sinus congestion, and cough. Cough is productive for yellow sputum. She has some chest pain with coughing. She denies shortness of breath. She has felt lightheaded and dizzy but denies syncopal events. In the ED, patient was febrile at 39.2. Fever broke with Tylenol. Labs are unremarkable. CT abd/pelvis is negative for acute findings. Physical Exam (per Admitting): General Appearance: WD/WN, no apparent distress Head: normocephalic, atraumatic Eyes: normal inspection, EOMI, sclerae normal ENT: hearing grossly normal, + pertinent finding (mucous membranes moist) Neck: supple, no JVD, trachea midline Respiratory/Chest: lungs clear, normal breath sounds, no respiratory distress Cardiovascular: regular rate, rhythm, no edema, normal peripheral pulses Abdomen/GI: normal bowel sounds, soft, no organomegaly, + tenderness (RLQ) Extremities/Musculoskelatal: normal inspection, no calf tenderness, normal capillary refill Neurologic/Psych: no motor/sensory deficits, alert, normal mood/affect, oriented x 3 Skin: normal color, warm/dry Hospital Course 57 year old female who presents to the ED with Abdominal pain, fevers, and sinus congestion. RLQ ABDOMINAL PAIN / fever -CT abd/pelvis negative for acute findings -patient was started on Zosyn on 11/06/17 and had Laparoscopic Appendectomy performed -as per general surgery service the abdominal pain was likely symptoms from from enteritis as the appendix was without significant inflammation -11/07/17 stool specimen sent: results pending for stool culture / shiga -11/08/17 stool specimen sent and negative for C.difficile -Patient to be discharged with Augmentin for enteritis and Hydrocodone/ Acetaminophen by surgery service Dr. Trejo Upper respiratory symptoms / fever -rapid influenza negative however was empirically on Tamiflu which was started from 11/05/17. Tamiflu to be stopped on discharge -blood cultures from 11/06/17 no growth to date Urine Culture from 11/05/17 resulted as LACTOBACILLUS SPECIES -Patient denies dysuria Patient has follow up appointment with 11/13/2017 3:00 PM Bruno Adkins MD Internal Medicine [facility] Other discharge instructions Activity Recommendations Activity Limitations: as noted below Lifting Limitations: no more than 25 pounds Exercise/Sports Limitations: until after follow-up appointment May Resume Sexual Activity: when tolerated Shower/Bathe: no limitations (may shower) Driving or Machine Use: no limitations * Cover incisions and change daily for comfort/drainage. May leave uncovered with dermabond * Leave steri strips in place * May use ibuprofen for pain as tolerated. * Expect some swelling and bruising. Call your doctor if: * Temperature above 101 degrees * Pain not relieved by pain medicine ordered * There is increased drainage or redness from any incision * You have any unanswered questions or concerns [phone]. FOLLOW UP VISIT: If not already scheduled, please call the office for a follow-up visit. for 2 weeks- check up- no sutures to remove OFFICE PHONE NUMBER: Dr. Trejo Office Work Instructions Return To Work: 1 week (will need 1-2 weeks recovery- call office with questions) Total time spent on discharge = 60 minutes This includes examination of the patient, discharge planning, medication reconciliation, and communication with other providers. Discharge Instructions see above
== END 2017-11-08 16:11 | disposition home or self-care (01) | DRG 343 ==
LOC: C.EDB 16:47 → C.MS2W 21:08 → ENRESERV 21:20 → CANRESERV 21:39 → ENRESERV 21:39 → CANRESERV 22:05 → ENRESERV 22:05 → OBSVTOIN 11-07 19:00
PROVIDERS: ADMIT Internal Medicine; ATTEND Hospitalist
PROC: 0DTJ4ZZ Resection of Appendix, Percutaneous Endoscopic Approach (ICD-10-PCS; principal; 2017-11-06 11:30)
DX: K52.9 Noninfective gastroenteritis and colitis, unspecified (principal); Z90.722 Acquired absence of ovaries, bilateral; Z90.710 Acquired absence of both cervix and uterus; F32.9 Major depressive disorder, single episode, unspecified; R09.89 Other specified symptoms and signs involving the circulatory and respiratory systems

== ENCOUNTER → 2018-01-04 | Outpatient (CLI) | payer OTHER ==
[~2018-01-04] MED LIST changes: -AMIT50TA3 PO; +CYCL10TA6 PO; +HYDR-5688 PO; -KETO10TA PO; -OXYC-57 PO; +TOPI50TA24 PO; +TRAM-10 PO; -ULT/50 PO
[2018-01-04 14:05] LABS: ALBUMIN 3.4 gm/dl (3.4-5.0); ALT/SGPT 19 U/L (12-78); AST/SGOT 17 U/L (15-37); BLOOD UREA NITROGEN 14 mg/dl (7-18); CALCIUM 8.5 mg/dl (8.5-10.1); CARBON DIOXIDE 26 mmol/L (21-32); GLUCOSE,FASTING 79 mg/dl (70-99); POTASSIUM 3.7 mmol/L (3.5-5.1); SODIUM 137 mmol/L (136-145)
[2018-01-04 14:08] LABS: ALKALINE PHOSPHATASE 77 U/L (45-117); CHOLESTEROL 184 mg/dl (0-200); LDL CHOLESTEROL CALCULATED 92 mg/dl; TOTAL PROTEIN 7.5 gm/dl (6.4-8.2)
== END | disposition home or self-care (01) ==
LOC: C.LABPBG 07:39
PROVIDERS: ATTEND Physician Assistant
DX: Z00.00 Encounter for general adult medical examination without abnormal findings (principal); E78.00 Pure hypercholesterolemia, unspecified

== ENCOUNTER → 2018-01-29 | Outpatient (CLI) | payer OTHER ==
[~2018-01-29] MED LIST changes: -HYDR-5688 PO
--- NOTE | 2018-01-30 07:49 | MAMMOGRAPHY REPORT ---
THIS REPORT HAS BEEN AMENDED. BILATERAL DIGITAL SCREENING MAMMOGRAM TOMOSYNTHESIS WITH CAD: 01/29/2018 CLINICAL HISTORY: Routine screening. Patient has no complaints. TECHNIQUE: Breast tomosynthesis in addition to standard 2D mammography was performed. Current study was also evaluated with a Computer Aided Detection (CAD) system. COMPARISON: No prior exams were available for comparison. BREAST COMPOSITION: There are scattered areas of fibroglandular density in both breasts. FINDINGS: No suspicious mass, architectural distortion or cluster of microcalcifications is seen. IMPRESSION: ACR BI-RADS CATEGORY 1: NEGATIVE There is no mammographic evidence of malignancy. However, prior outside mammograms are currently reny ng requested and if obtained they will be reviewed, compared to the current exam to assess for any mo re subtle changes, and an addendum will be made to this report. Otherwise, a 1 year screening mammog linda is recommended. The patient will receive written notification of the results. Approximately 10% of breast cancers are not detected with mammography. A negative mammographic report should not delay biopsy if a clinically suggestive mass is present. Tammie Walden M.D. ay/:01/29/2018 16:53:56 [employer] Instructor: Maxine STEIN(Derick)(Jamal)(BD), [facility] letter sent: Normal 10/16 BI-RADS Code: ACR BI-RADS Category 1: Negative AMENDMENT: 01/30/2018 Tammie Walden M.D. Prior outside mammograms from [facility] dated 01/17/2008, 04/28/2011, 04/30/2012 and 013 became available for review. The glandular tissue pattern is unchanged. No new suspicious facundo s, calcifications, Areas of architectural distortion or asymmetries are seen bilaterally. Recommend routine screening mammography in 1 year. Amended BI-RADS: ACR BI-RADS Category 2: Benign letter sent: Normal 10/16
== END | disposition home or self-care (01) ==
LOC: C.MAMM 14:27
PROVIDERS: ATTEND Physician Assistant
DX: Z12.31 Encounter for screening mammogram for malignant neoplasm of breast (principal)

== ENCOUNTER 2022-07-17 11:00 | Inpatient (IN) ==
[2022-07-17] MEDS ORDERED: ALBUTEROL 0.083% NEBU SOLN 3 ML VIAL NEB STA (12:01)
[2022-07-17 12:05] LABS: Basophils # (auto) 0.08 K/uL (0-0.2); Basophils % (auto) 0.9 %; Eosinophils # (auto) 2.53 K/uL (0-0.50); Eosinophils % (auto) 28.6 %; Hematocrit (blood only) 44.4 % (34.1-44.9); Hemoglobin 15.1 g/dl (12.0-16.0); Immature Granulocytes # (auto) 0.03 K/uL (0.00-0.02); Immature Granulocytes % (auto) 0.3 %; Lymphocytes # (auto) 1.36 K/uL (1.2-3.4); Lymphocytes % (auto) 15.4 %; Mean Corpuscular Hemoglobin 30.3 pg (25.0-34.0); Mean Corpuscular Volume 89.2 fL (80.0-100.0); Monocytes # (auto) 0.46 K/uL (0.24-0.82); Monocytes % (auto) 5.2 %; Neutrophils # (auto) 4.38 K/uL (1.4-6.5); Neutrophils % (auto) 49.6 %; Platelet Count 337 K/uL (130-400); RDW Coefficient of Variation 13.5 % (11.5-14.5); Red Blood Count 4.98 M/uL (3.93-5.22); White Blood Count 8.84 K/ul (4.8-10.8)
--- NOTE | 2022-07-17 12:07 | Emergency Department Note ---
History of Present Illness General Chief complaint: Shortness of Breath/Dyspnea Stated complaint: SOB, WHEEZING Time Seen by Provider: 07/17/22 11:52 Source: patient and family ( who is at the bedside) Mode of arrival: ambulatory Limitations: no limitations History of Present Illness Maximum Pain Intensity: 6 This patient is a 61-year-old female who has been sick for about 2 weeks she says it started he thought it was her allergies or her asthma and its been getting worse she was seen at acute care recently they put her on doxycycline and nebulizer she has been using her nebulizer inhaler very frequently she went again this morning they told her oxygen looked okay but they were concerned her lungs seem so tight so they sent her here. She sees Dr. Underwood she does not have a councilperson. No chest pain but she does feel tight no fever she is coughing up yellow phlegm she is been COVID tested twice so far has been negative. She has had no trauma or injury. No lower extremity pain or swelling. No nausea or vomiting. She tells me She cannot take steroids because she took prednisone once and immediately got facial swelling and shortness of breath afterwards and she said it almost killed her. Home Medications Medication Instructions Recorded Confirmed Type budesonide 180 mcg/actuation 1 inh inhalation DAILY PRN 04/06/22 05/12/22 Rx breath activated powder inhaler allergic symptoms #1 ea (Pulmicort Flexhaler) rimegepant 75 mg disintegrating 75 mg PO .every 48hrs PRN Migraine 04/27/22 05/12/22 Rx tablet (Nurtec ODT) Headache #15 tabs citalopram 40 mg tablet 40 mg PO QAM 90 days #90 tabs 07/04/22 Rx conjugated estrogens 0.625 mg 0.625 mg PO QAM #90 tabs 07/04/22 Rx tablet (Premarin) dexlansoprazole 60 mg 60 mg PO DAILY #30 caps 07/04/22 Rx capsule,biphase delayed release (Dexilant) nebulizers #1 ea 07/11/22 Rx albuterol sulfate 90 mcg/actuation 2 puff inhalation QID PRN Wheezing 07/12/22 Rx aerosol inhaler #8.5 grams albuterol sulfate 2.5 mg/3 mL 2.5 mg (3 mL) inhalation QID PRN 07/13/22 Rx (0.083 %) solution for nebulization shortness of breath or wheezing #90 mL Allergies Allergy/AdvReac Type Severity Reaction Status Date / Time estradiol Allergy Severe THROAT Verified 05/12/22 14:38 SWELLING meperidine Allergy Severe THROAT Verified 05/12/22 14:38 SWELLING, DIFFICULTY BREATHING prednisone Allergy Severe SHORTNESS Verified 05/12/22 14:38 OF BREATH 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 Migraine Sneezing Temporomandibular joint disorder BILAT CLCIKS-NO LOCKING Surgical History H/O bilateral oophorectomy H/O dilation of urethra H/O nasal septoplasty H/O tubal ligation History of esophagogastroduodenoscopy (EGD) History of tonsillectomy and adenoidectomy Hx of appendectomy S/P arthroscopy of left shoulder (04/2021) S/P arthroscopy of right shoulder (2016) S/P left knee arthroscopy HX S/P IVORY (total abdominal hysterectomy) HX Family History Father Diabetes Alcohol abuse Mother Anxiety Breast cancer Aunt Breast cancer Family/Other Colorectal cancer grandparent Sister Breast cancer Sister Breast cancer Brother Factor V Leiden Heterozygous for MTHFR gene mutation Other No family history of adverse response to anesthesia Denies family history of Ovarian cancer Prostate cancer Myocardial infarction Social History Smoking Status: Never smoker Second Hand Exposure: No; Do You Dip or Chew Tobacco: No; Hx Alcohol Use: Yes Alcohol type: beer Alcohol Intake Frequency: Monthly or Less Alcohol Intake Frequency Comment: socially Hx Substance Use: No Preferred Language: Nigerien Communication Ability: Effective Visual Impairment: No Limitations Hearing Ability: Normal Rivet Catcher Required: No Beliefs That Will Affect Care: None marital status: Current Living Situation: Spouse current occupational status: retired Feels Safe at Home: Yes Childhood Exposure to Second-Hand Smoke: No caffeine: Yes (Coffee x 2 per day) during the past year weight has: remained stable Dental Care, Regularly: Yes Physical Activity Frequency: Daily Seatbelt Use: always Sunscreen Use: Yes Assistive Devices: None Review of Systems A total of 10 systems reviewed and were otherwise negative Physical Exam Vital Signs Vital Signs - 24 hr 07/17/22 11:14 07/17/22 11:37 07/17/22 11:39 Temperature 36.2 C L Temperature Source Temporal Artery Scan Pulse Rate 74 Pulse Rate [Finger] 68 Pulse Rhythm Regular Pulse Strength Normal Respiratory Rate 20 18 20 Respiratory Effort / Characteristics Non-Labored Spontaneous Non-Labored Spontaneous Respiratory Depth Normal Respiratory Pattern Regular Blood Pressure 146/78 H Blood Pressure [Right Arm] 153/90 H Blood Pressure Mean 100 Blood Pressure Mean [Right Arm] 111 Blood Pressure Position Sitting Blood Pressure Position [Right Arm] Semi-fowlers Pulse Oximetry 98 100 98 Oxygen Delivery Method Room Air Room Air Room Air Sepsis Recent Fever Within 48 Hours No Sepsis New/Unexplained Change in Mental Status No Sepsis Action Taken by Nursing No Action Required 07/17/22 11:51 07/17/22 12:32 07/17/22 12:44 Temperature Temperature Source Pulse Rate Pulse Rate [Finger] 73 71 Pulse Rhythm Pulse Strength Respiratory Rate 18 20 Respiratory Effort / Characteristics Spontaneous Respiratory Depth Respiratory Pattern Blood Pressure Blood Pressure [Right Arm] 128/95 Blood Pressure Mean Blood Pressure Mean [Right Arm] 106 Blood Pressure Position Blood Pressure Position [Right Arm] Pulse Oximetry 98 96 98 Oxygen Delivery Method Room Air Room Air Room Air Sepsis Recent Fever Within 48 Hours Sepsis New/Unexplained Change in Mental Status Sepsis Action Taken by Nursing 07/17/22 13:40 07/17/22 14:42 07/17/22 14:57 Temperature Temperature Source Pulse Rate Pulse Rate [Finger] 85 87 Pulse Rhythm Pulse Strength Respiratory Rate 18 18 Respiratory Effort / Characteristics Respiratory Depth Respiratory Pattern Blood Pressure Blood Pressure [Right Arm] 109/86 141/83 H Blood Pressure Mean Blood Pressure Mean [Right Arm] 93 102 Blood Pressure Position Blood Pressure Position [Right Arm] Pulse Oximetry 100 93 Oxygen Delivery Method Room Air Room Air Room Air Sepsis Recent Fever Within 48 Hours Sepsis New/Unexplained Change in Mental Status Sepsis Action Taken by Nursing General: Well developed well nourished middle-age female who is coughing fr equently in no acute distress, breathing comfortably on room air. Normal speech HEENT: Normal cephalic atraumatic. Pupils are equal round and reactive to light. Extraocular movements are intact. Oropharynx is pink with moist mucous membranes. No swelling of the mouth lips or tongue. Neck: Supple with a midline trachea. No meningeal signs or stiffness, no JVD or bruits. No Stridor. Chest: Somewhat diminished air movement and wheezes to auscultation bilaterally. Mild increased work of breathing. Heart: Regular rate and rhythm without murmurs or gallops. Abdomen: Soft nontender, nondistended without rebound guarding or rigidity. Extremities: No cyanosis clubbing or edema. No calf tenderness or assymetry Spine/Back. Non tender to palpation. No CVA tenderness Skin: Good turgor without rashes. Neurologic exam: Cranial nerves two through 12 are intact. Motor and sensation are intact and symmetrical throughout. Course Administered Medications Albuterol (Albuterol 0.5% Neb Soln 2.5 Mg/0.5 Ml Vial) 2.5 mg NEB Q4R SALLY; Protocol Stop: 08/16/22 15:49 Last Admin: 07/17/22 15:59 Dose: 2.5 mg Documented By: AP Enoxaparin Sodium (Enoxaparin Inj 40 Mg/0.4 Ml Syr) 40 mg SQ Q24H SALLY Stop: 08/16/22 18:59 Last Admin: 07/17/22 19:17 Dose: 40 mg Documented By: LUIS Guaifenesin/Codeine Phosphate (Guaifenesin/Codeine 100mg/10mg 5ml Udc) 5 ml PO Q6H PRN PRN Reason: Cough Stop: 08/16/22 18:06 Last Admin: 07/17/22 18:37 Dose: 5 ml Documented By: CAM Discontinued Medications Albuterol (Albuterol 0.083% Nebu Soln 3 Ml Vial) 10 mg NEB NOW STA; Protocol Stop: 07/17/22 12:02 Last Admin: 07/17/22 12:44 Dose: 10 mg Documented By: [facility] Albuterol (Albut/Ipratrop 3mg/0.5mg Neb 3 Ml Vial) 3 ml NEB NOW STA; Protocol Stop: 07/17/22 15:18 Last Admin: 07/17/22 15:50 Dose: Not Given Documented By: AP Albuterol (Albuterol 0.5% Neb Soln 2.5 Mg/0.5 Ml Vial) 2.5 mg NEB Q30M SALLY; Protocol Stop: 08/16/22 15:34 Last Admin: 07/17/22 15:49 Dose: Not Given Documented By: MARYAM Guaifenesin (Guaifenesin Sugar Free 100 Mg/5 Ml Udc) 100 mg PO Q6H SALLY Stop: 08/16/22 17:29 Last Admin: 07/17/22 18:10 Dose: Not Given Documented By: ANALY Magnesium Sulfate/Dextrose (Magnesium Sulfate / D5w) 1 gm in 100 mls @ 50 mls/hr IV Q2H [facility] Stop: 07/17/22 19:14 Last Admin: 07/17/22 19:11 Dose: 50 mls/hr Documented By: Infusion: 07/17/22 17:59 Dose: 50 mls/hr Documented By: Admin: 07/17/22 15:59 Dose: 50 mls/hr Documented By: MARYAM Medical Decision Making Differential Diagnosis Asthma exacerbation, URI, bronchitis, pneumonia, PE, cardiac disease, sepsis, electrolyte or metabolic abnormality Medical Records Attestation: I reviewed the patient's medical records. Home Medications Current Medication List: was personally reviewed by me Laboratory Data Attestation: I reviewed the patient's lab results. Result diagrams: 07/17/22 11:30 07/17/22 11:30 Lab Results 07/17/22 07/17/22 07/17/22 Range/Units 11:30 11:30 11:30 WBC 8.84 (4.8-10.8) K/ul RBC 4.98 (3.93-5.22) M/uL Hgb 15.1 (12.0-16.0) g/dl Hct 44.4 (34.1-44.9) % MCV 89.2 (80.0-100.0) fL MCH 30.3 (25.0-34.0) pg MCHC 34.0 (32.0-36.0) g/dL RDW Std Deviation 44.0 (36.4-46.3) fL RDW Coeff of [place] 13.5 (11.5-14.5) % Plt Count 337 (130-400) K/uL MPV 9.0 L (9.4-12.3) fL Immature Gran % (Auto) 0.3 % Neut % (Auto) 49.6 % Lymph % (Auto) 15.4 % [place] % (Auto) 5.2 % Eos % (Auto) 28.6 % Baso % (Auto) 0.9 % Neut # (Auto) 4.38 (1.4-6.5) K/uL Lymph # (Auto) 1.36 (1.2-3.4) K/uL [place] # (Auto) 0.46 (0.24-0.82) K/uL Eos # (Auto) 2.53 H (0-0.50) K/uL Baso # (Auto) 0.08 (0-0.2) K/uL Immature Gran # (Auto) 0.03 H (0.00-0.02) K/uL PT 10.8 (9.0-12.0) Seconds INR 1.0 (0.9-1.1) APTT 28.8 (21.0-31.0) Seconds PTT Ratio 1.0 D-Dimer 380 (0-500) ug/L FEU Sodium 139 (136-145) mmol/L Potassium 3.8 (3.5-5.1) mmol/L Chloride 103 (98-107) mmol/L Carbon Dioxide 28 (21-32) mmol/L Anion Gap 8 (3-11) BUN 11 (6-23) mg/dl Creatinine 0.76 (0.6-1.2) mg/dl Est Cr Clr Drug Dosing 70.9 ml/min Est GFR ( Amer) 96.8 ml/min Est GFR (Non-Af Amer) 83.5 ml/min BUN/Creatinine Ratio 14.5 (10-20) Glucose 80 (70-99(Fasting)) mg/dl Calcium 9.7 (8.5-10.1) mg/dl Magnesium 1.8 (1.7-2.4) mg/dl Total Bilirubin 0.4 (0.2-1.0) mg/dl AST 24 (13-39) U/L ALT 17 (7-52) U/L Alkaline Phosphatase 90 (34-104) U/L Troponin I High Sens (0-14) pg/ml Total Protein 7.2 (6.0-8.3) gm/dl Albumin 4.3 (3.4-5.0) gm/dl Globulin 2.9 (2.5-4.0) gm/dl Albumin/Globulin Ratio 1.5 (0.9-2) SARS-CoV-2 (PCR) (Negative) Influenza Type A (PCR) (Neg) Influenza Type B (PCR) (Neg) RSV (RT-PCR) (Neg) 07/17/22 07/17/22 07/17/22 Range/Units 11:30 11:30 11:30 WBC (4.8-10.8) K/ul RBC (3.93-5.22) M/uL Hgb (12.0-16.0) g/dl Hct (34.1-44.9) % MCV (80.0-100.0) fL MCH (25.0-34.0) pg MCHC (32.0-36.0) g/dL RDW Std Deviation (36.4-46.3) fL RDW Coeff of Kirby (11.5-14.5) % Plt Count (130-400) K/uL MPV (9.4-12.3) fL Immature Gran % (Auto) % Neut % (Auto) % Lymph % (Auto) % [place] % (Auto) % Eos % (Auto) % Baso % (Auto) % Neut # (Auto) (1.4-6.5) K/uL Lymph # (Auto) (1.2-3.4) K/uL [place] # (Auto) (0.24-0.82) K/uL Eos # (Auto) (0-0.50) K/uL Baso # (Auto) (0-0.2) K/uL Immature Gran # (Auto) (0.00-0.02) K/uL PT (9.0-12.0) Seconds INR (0.9-1.1) APTT (21.0-31.0) Seconds PTT Ratio D-Dimer Cancelled (0-500) ug/L FEU Sodium (136-145) mmol/L Potassium (3.5-5.1) mmol/L Chloride (98-107) mmol/L Carbon Dioxide (21-32) mmol/L Anion Gap (3-11) BUN (6-23) mg/dl Creatinine (0.6-1.2) mg/dl Est Cr Clr Drug Dosing ml/min Est GFR ( Amer) ml/min Est GFR (Non-Af Amer) ml/min BUN/Creatinine Ratio (10-20) Glucose (70-99(Fasting)) mg/dl Calcium (8.5-10.1) mg/dl Magnesium (1.7-2.4) mg/dl Total Bilirubin (0.2-1.0) mg/dl AST (13-39) U/L ALT (7-52) U/L Alkaline Phosphatase (34-104) U/L Troponin I High Sens 2.6 (0-14) pg/ml Total Protein (6.0-8.3) gm/dl Albumin (3.4-5.0) gm/dl Globulin (2.5-4.0) gm/dl Albumin/Globulin Ratio (0.9-2) SARS-CoV-2 (PCR) NEGATIVE (Negative) Influenza Type A (PCR) Negative (Neg) Influenza Type B (PCR) Negative (Neg) RSV (RT-PCR) Negative (Neg) Imaging Data Attestation: I personally reviewed and interpreted this imaging study as follows: My Impression: Chest x-rayno acute infiltrate, failure, pneumothorax seen Radiologist's Impression: Chest X-Ray 07/17/22 11:17 XR chest 1V portable CLINICAL HISTORY: Shortness of breath. COMPARISON STUDY: Chest CT January 25, 2012. Chest radiograph November 05, 2017. FINDINGS: Lung volumes are normal. Lungs are clear. Minimal left apical opacity favors scarring. There is no pneumothorax or pleural effusion. Cardiac size is normal. Mediastinal contours are normal. There is no evidence for pulmonary edema. IMPRESSION: No acute cardiopulmonary findings. ACT 112: Negative or not required by law. Electronically signed by: Bucky Urbina M.D. 07/17/2022 12:17 PM ECG Data Attestation: I personally reviewed and interpreted this ECG as follows: Indication: + SOB/dyspnea Rate (beats per minute): 66 Rhythm: + normal sinus ECG Intervals/blocks: + Normal QRS, + Normal QT and + Normal LA ECG [place]: + Normal ECG ST segments: + Normal ST segments ECG Findings: + Other (Poor R progression and septal infarct.); no PACs or no PVCs Comparison ECG Date: from (05/30/17) Change: the following changes noted (Poor R wave progression septal infarct appears to be new) MDM Narrative This patient comes in as described above. She was placed on a media monitor room a 11 she has had shortness of breath for 2 weeks she sounds wheezy she has a history of asthma unfortunately she has this very reaction to prednisone. She was given continuous albuterol Atrovent nebs chest x-ray EKG multiple blood testing was obtained she was COVID tested. IV access established. She was kept on a media monitor. She was reassessed frequently. Despite having an hour- long DuoNeb she says she does not feel any better. she is not hypoxemic but when I reexamined her her lungs are still wheezy and tight. Her chest x-ray does not show congestive heart failure, pneumonia, or pneumothorax. Her D-dimer is within normal limits which makes PE highly unlikely. Her EKG is nonischemic appearing and her troponin is negative which would both go against cardiac disease. She has no significant electrolyte or metabolic abnormalities. Given her ongoing symptoms and failure to improve as an outpatient I do think she should be admitted/observed and [facility]. Continuous media monitor: Orders were placed in EMR for continuous cardiac monitoring, upon my evaluation upon my evaluation she was noted to be in normal sinus rhythm with a rate of 80. Impression & Plan COPD exacerbation, SOB (shortness of breath), Lab test negative for COVID-19 virus, Cough Discharge Plan Visit Data Chief Complaint: Shortness of Breath/Dyspnea Stated Complaint: SOB, WHEEZING ED Provider: Harlan Todd Discharge Problem: COPD exacerbation, SOB (shortness of breath), Lab test negative for COVID-19 virus, Cough Patient Disposition: Admitted As Inpatient Discharge Instructions Interventions: ED Discharge Assessment Last Done: 07/17/22 16:28 : Cough Qualifiers: Cough type: unspecified Qualified Code(s): R05.9 - Cough, unspecified
[2022-07-17 12:16] LABS: Partial Thromboplastin Time 28.8 Seconds (21.0-31.0); Prothrombin Time 10.8 Seconds (9.0-12.0)
--- NOTE | 2022-07-17 12:19 | XRay Report ---
XR chest 1V portable CLINICAL HISTORY: Shortness of breath. COMPARISON STUDY: Chest CT January 25, 2012. Chest radiograph November 05, 2017. FINDINGS: Lung volumes are normal. Lungs are clear. Minimal left apical opacity favors scarring. Ther e is no pneumothorax or pleural effusion. Cardiac size is normal. Mediastinal contours are normal. Th ere is no evidence for pulmonary edema. IMPRESSION: No acute cardiopulmonary findings. ACT 112: Negative or not required by law. Electronically signed by: Bucky Urbina M.D. 07/17/2022 12:17 PM
[2022-07-17 12:31] LABS: Albumin Globulin Ratio 1.5 (0.9-2); Albumin Level 4.3 gm/dl (3.4-5.0); BUN Creatinine Ratio 14.5 (10-20); Bilirubin,Total 0.4 mg/dl (0.2-1.0); Calcium 9.7 mg/dl (8.5-10.1); Creatinine Clr Calc Pharmacy 70.9 ml/min; Est GFR (African American) 96.8 ml/min; Est GFR (Non-African American) 83.5 ml/min; Globulin 2.9 gm/dl (2.5-4.0); Magnesium 1.8 mg/dl (1.7-2.4); Potassium 3.8 mmol/L (3.5-5.1); Total Protein 7.2 gm/dl (6.0-8.3)
[2022-07-17 12:41] LABS: Influenza A virus by PCR Negative (Neg); Influenza B virus by PCR Negative (Neg); RSV by PCR Negative (Neg); SARS CoV2 RNA(COVID-19) InHosp NEGATIVE (Negative)
[2022-07-17 13:19] LABS: D Dimer 380 ug/L FEU (0-500)
[2022-07-17] MEDS ORDERED: ALBUT/IPRATROP 3MG/0.5MG NEB 3 ML VIAL NEB STA (15:17)
[2022-07-17] MEDS ORDERED: ALBUTEROL 0.5% NEB SOLN 2.5 MG/0.5 ML VIAL NEB SCH ×2 (15:35→17:18)
--- NOTE | 2022-07-17 15:38 | History & Physical Report ---
Date of Service July 17, 2022 Assessment & Plan (1) Asthma exacerbation: Plan: -Admit to PCU -Patient is currently afebrile, hemodynamically stable, and currently stable on room air -Patient was given a 1 hour continuous albuterol nebulizer in the ED without improvement of symptoms -Patient has a history of severe allergic reaction to prednisone 7 years ago. Spoke to inpatient pharmacy, for now they would be hesitant to start oral glucocorticoids. -Ordered 2g IV mag sulfate STAT, will continue with q4h albuterol treatments with q2h prn albuterol for wheezing/SOB -Continue home budesonide -Currently stable on room air, prn O2 ordered for SpO2 less than 95%, communication ordered to contact consumer lending manager provider if O2 is needed -If patient would continue to decline despite the current treatment regimen may have to consider starting systemic glucocorticoids and monitor closely for allergic reaction -Will order scheduled Robitussin for cough -Monitor on tele and continuous pulse oximetry -Am CBC, BMP, and Mag (2) GERD (gastroesophageal reflux disease): Plan: -40 mg IV Protonix daily (3) Anxiety: Plan: -Continue Celexa Plan The patient was discussed with Dr. Brizuela at the time of admission History of Present Illness Chief Complaint: SOB Primary Care Provider: DO Светлана Yost is a 61 year old female with a PMH significant for asthma, chronic migraines, GERD, allergic rhinitis, and anxiety who presented to the [facility] ED on 07/17/22 with a chief complaint of increased wheezing/SOB for the past 2 weeks. At the time of the exam the patient was sitting up in bed coughing and in mild distress. She states that approximately 2 weeks ago she started to develop increased wheezing/SOB and cough which has continued to progress. She states that her asthma is normally well controlled on daily Budesonide and prn albuterol. She has been using both breathing treatments as prescribed without relief the past two weeks. She notes during this time that she had been cleaning the house and use of a cleaning spray seemed to make her symptoms worse, she also notes that her symptoms progressed after her mowed the lawn earlier this week. She does not have a lens grinder rough but did go to acute care on 07/08/22 for her symptoms. They prescribed her Doxycycline (which she completed) and Tessalon pearls, both of which did not improve her symptoms. She has been having a productive cough up until yesterday, she notes that the sputum was white. She is anxious because when her cough is bad she is unable to speak in complete sentences. From all of her coughing she has developed substernal chest pain, the chest pain is reproducible and exacerbated with coughing. In ED the patient's labs were remarkable for negative Covid, RSV, and influenza testing, a high sensitivity of troponin of 2.6 and D-dimer of 380. Chest xray was negative for acute findings . In the ED the patient was given 1 hour of continuous albuterol nebulization which did not improve her symptoms. I spoke to the patient regarding her previous allergic reaction to prednisone in the past. She states that 7 years ago she was started on prednisone for her chronic migraines. Shortly after taking the prednisone she states that her face and throat swelled significantly requiring admission. Since then she has not been on any glucocorticoids. She does take inhaled Budesonide without issue. Allergies Allergy/AdvReac Type Severity Reaction Status Date / Time estradiol Allergy Severe THROAT Verified 05/12/22 14:38 SWELLING meperidine Allergy Severe THROAT Verified 05/12/22 14:38 SWELLING, DIFFICULTY BREATHING prednisone Allergy Severe SHORTNESS Verified 05/12/22 14:38 OF BREATH Home Medications Medication Instructions Recorded Confirmed Type budesonide 180 mcg/actuation 1 inh inhalation DAILY PRN 04/06/22 05/12/22 Rx breath activated powder inhaler allergic symptoms #1 ea (Pulmicort Flexhaler) rimegepant 75 mg disintegrating 75 mg PO .every 48hrs PRN Migraine 04/27/22 05/12/22 Rx tablet (Nurtec ODT) Headache #15 tabs citalopram 40 mg tablet 40 mg PO QAM 90 days #90 tabs 07/04/22 Rx conjugated estrogens 0.625 mg 0.625 mg PO QAM #90 tabs 07/04/22 Rx tablet (Premarin) dexlansoprazole 60 mg 60 mg PO DAILY #30 caps 07/04/22 Rx capsule,biphase delayed release (Dexilant) nebulizers #1 ea 07/11/22 Rx albuterol sulfate 90 mcg/actuation 2 puff inhalation QID PRN Wheezing 07/12/22 Rx aerosol inhaler #8.5 grams albuterol sulfate 2.5 mg/3 mL 2.5 mg (3 mL) inhalation QID PRN 07/13/22 Rx (0.083 %) solution for nebulization shortness of breath or wheezing #90 mL 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/[facility]LL[facility] WITH [facility] Migraine Sneezing Temporomandibular joint disorder BILAT CLCIKS-NO LOCKING Surgical History H/O bilateral oophorectomy H/O dilation of urethra H/O nasal septoplasty H/O tubal ligation History of esophagogastroduodenoscopy (EGD) History of tonsillectomy and adenoidectomy Hx of appendectomy S/P arthroscopy of left shoulder (04/2021) S/P arthroscopy of right shoulder (2016) S/P left knee arthroscopy HX S/P IVORY (total abdominal hysterectomy) HX Family History Father Diabetes Alcohol abuse Mother Anxiety Breast cancer Aunt Breast cancer Family/Other Colorectal cancer grandparent Sister Breast cancer Sister Breast cancer Brother Factor V Leiden Heterozygous for MTHFR gene mutation Other No family history of adverse response to anesthesia Denies family history of Ovarian cancer Prostate cancer Myocardial infarction Social History Smoking Status: Never smoker Second Hand Exposure: No; Do You Dip or Chew Tobacco: No; Hx Alcohol Use: Yes Alcohol type: beer Alcohol Intake Frequency: Monthly or Less Alcohol Intake Frequency Comment: socially Hx Substance Use: No Preferred Language: Nauruan Communication Ability: Effective Visual Impairment: No Limitations Hearing Ability: Normal Emissions Technician Required: No Beliefs That Will Affect Care: None marital status: Current Living Situation: Spouse current occupational status: retired Feels Safe at Home: Yes Childhood Exposure to Second-Hand Smoke: No caffeine: Yes (Coffee x 2 per day) during the past year weight has: remained stable Dental Care, Regularly: Yes Physical Activity Frequency: Daily Seatbelt Use: always Sunscreen Use: Yes Assistive Devices: None Review of Systems Review of Systems: Denies current fever, chills, headache, changes in vision, hearing, taste, and smell, abdominal pain, nausea, vomiting, diarrhea, hematemesis, melena, dysuria, hematuria, and recent falls. All systems have been reviewed and are otherwise negative. Physical Exam Physical Exam: Physical Exam: General: In mild distress, stated age, well-nourished, good hygiene HEENT: Normocephalic, atraumatic, no scleral icterus, pupils around round, symmetrical, and reactive to light, moist mucus membranes, trachea midline, no thyromegaly Chest/Pulm: Tachypneic, able to speak in full sentences when not coughing, but frequently coughing at the time of the exam, symmetrical chest expansion, expiratory wheezing throughout Cardiac: Tachycardic rate, regular rhythm, no murmurs noted Abdomen: Negative for ascites and bruising, normoactive bowel sounds, soft, non-tender to palpation throughout Musculoskeletal: Symmetrical and without signs of acute trauma, upper and lower extremities with full ROM, no atrophy, spasticity, or flaccidity Extremities: Radial, dorsalis pedis, and posterior tibial pulses are intact and symmetrical, no edema noted in the BL LE's Skin: Warm, dry, no rashes , lesions, or scars noted Neuro: Alert and oriented to person, place, month, year, and president, no focal defects, CN II-XII tested and intact, finger to nose test negative, no tremors noted Psych: No acute distress, calm and cooperative during the exam Results & Data Results & Data ([facility]) Vital Signs (Past 12 Hours) Vital Signs Temp Pulse Pulse Resp BP BP Pulse Ox 07/17/22 14:57 07/17/22 14:42 87 18 141/83 H 93 07/17/22 13:40 85 18 109/86 100 07/17/22 12:44 71 20 98 07/17/22 12:32 73 18 128/95 96 07/17/22 11:51 98 07/17/22 11:39 68 20 153/90 H 98 07/17/22 11:37 18 100 07/17/22 11:14 36.2 C L 74 20 146/78 H 98 O2 Del Method 07/17/22 14:57 Room Air 07/17/22 14:42 Room Air 07/17/22 13:40 Room Air 07/17/22 12:44 Room Air 07/17/22 12:32 Room Air 07/17/22 11:51 Room Air 07/17/22 11:39 Room Air 07/17/22 11:37 Room Air 07/17/22 11:14 Room Air Laboratory Results Abnormal lab results 07/17/22 Range/Units 11:30 MPV 9.0 L (9.4-12.3) fL Eos # (Auto) 2.53 H (0-0.50) K/uL Immature Gran # (Auto) 0.03 H (0.00-0.02) K/uL Diagnostic Findings Chest X-Ray 07/17/22 11:17 XR chest 1V portable CLINICAL HISTORY: Shortness of breath. COMPARISON STUDY: Chest CT January 25, 2012. Chest radiograph November 05, 2017. FINDINGS: Lung volumes are normal. Lungs are clear. Minimal left apical opacity favors scarring. There is no pneumothorax or pleural effusion. Cardiac size is normal. Mediastinal contours are normal. There is no evidence for pulmonary edema. IMPRESSION: No acute cardiopulmonary findings. ACT 112: Negative or not required by law. Electronically signed by: Bucky Urbina M.D. 07/17/2022 12:17 PM ECG Additional Comments: Normal sinus rhythm Possible Left atrial enlargement Septal infarct , age undetermined Abnormal ECG When compared with ECG of 30-MAY-2017 15:38, Septal infarct is now Present T wave inversion now evident in Anterior leads Code Status & VTE Plan Code Status Full code VTE Prophylaxis Plan VTE Prophylaxis will be ordered: Yes Supervising Physician Co-Signing Physician Notes Patient seen and examined, chart reviewed, case discussed with Luis Myers PA-C and I agree with the assessment and plan as above except as otherwise noted Labs and images reviewed Pt Is a 61-year-old female presents with asthma exacerbation on room air but with diffuse wheezing on exam and tachypnea following speech. Not on room air, but appears fatigued. Bedside assessment there are diffuse expiratory wheezes. D-dimer is negative. COVID is negative, CXR without acute findings magnesium given, nebs given and scheduled, continue budesonide. At bedside patient has scattered rhonchi, and scattered late end expiratory wheezes and speech triggers periodic coughing fits. No hypoxia. No rales.? Asthma exacerbation versus postviral cough syndrome. Pro-Terrell was negative. Suspect patient was allergic to a pressurised container filler the prednisone rather than prednisone itself. Discussed with patient, will hold off on any glucocorticoids at this time but is willing to try while in the hospital tomorrow if not getting better and not improving with cough treatment. Added guaifenesincodeine PG Care Time/CCT Total # of Minutes Spent Total Time Spent with Patient: Total time spent is greater than 50% in coordination of care (as documented) at patient's floor/unit and/or counseling patient: Coding [place] [address] Initial Inpt Care Lvl 3 Patient Type Established Medical Decision Making High Complexity Diagnoses Asthma exacerbation J45.901 GERD (gastroesophageal reflux disease) K21.9 Anxiety F41.9
[2022-07-17] MEDS: MAGNESIUM SULFATE / D5W 1 GM/100 ML BAG IV SCH ×2 (15:59→19:11)
[2022-07-17] MEDS: ALBUTEROL 0.5% NEB SOLN 2.5 MG/0.5 ML VIAL NEB SCH ×3 (15:59→22:51)
[2022-07-17] MEDS ORDERED: ALBUT/IPRATROP 3MG/0.5MG NEB 3 ML VIAL NEB SCH (17:18)
[2022-07-17] MEDS ORDERED: ACETAMINOPHEN 325 MG TAB PO PRN (17:18)
[2022-07-17] MEDS ORDERED: guaiFENesin SUGAR FREE 100 MG/5 ML UDC PO SCH ×2 (17:18→17:30)
[2022-07-17] MEDS ORDERED: ALBUTEROL 0.5% NEB SOLN 2.5 MG/0.5 ML VIAL NEB PRN (17:44)
--- NOTE | 2022-07-17 17:59 | Electrocardiogram Report ---
Test Reason : Blood Pressure : / mmHG Vent. Rate : 066 BPM Atrial Rate : 066 BPM P-R Int : 162 ms QRS Dur : 070 ms QT Int : 420 ms P-R-T Axes : 060 020 035 degrees QTc Int : 440 ms Normal sinus rhythm Possible Left atrial enlargement Abnormal ECG When compared with ECG of 30-MAY-2017 15:38, T wave inversion now evident in Anterior leads Confirmed by Carlin Reddy ([id number]) on 07/17/2022 5:59:29 PM Referred By: Confirmed By:Sreedhar Reddy
[2022-07-17] MEDS: guaiFENesin/CODEINE 100MG/10MG 5ML UDC PO PRN (18:37)
[2022-07-17] MEDS: ENOXAPARIN INJ 40 MG/0.4 ML SYR SQ SCH (19:17)
--- NOTE | 2022-07-17 20:14 | CT Scan Report ---
CT chest diagnostic wo con CT DOSE: 201.05 mGycm CLINICAL HISTORY: 61 years-old Female with rhonchi, persistent couch and SoB. Acute shortness of serena ath with cough TECHNIQUE: Multiaxial CT images of the chest were performed without contrast. A dose lowering techni que was utilized adhering to the principles of ALARA. COMPARISON: Chest radiograph of same day, chest CT 01/25/2012 FINDINGS: Unremarkable thyroid. No lymphadenopathy identified. The heart is normal in size without pe ricardial effusion. Pectus excavatum. No thoracic aortic aneurysm. Descending thoracic aortic tortuos ity. No pneumothorax, pleural effusion or overt pulmonary edema. Mild bilateral bronchial wall thicke lula with bibasilar mucous plugging. Stable benign 3 mm nodule of the left upper lobe on image 107. S ubsegmental groundglass opacities of the left lower lobe. No acute process of the imaged upper abdomen. Distended debris-filled stomach suggestive of recent me al. Unremarkable soft tissues. No acute fracture or suspicious bone lesion identified. IMPRESSION: 1. Bronchial wall thickening suggestive of bronchitis or reactive airway disease with mild bibasilar mucous plugging and left basilar atelectasis. 2. No adenopathy, pleural effusion or airspace consolidation typical for pneumonia. ACT 112: Negative or not required by law. Electronically signed by: Jerald Brown M.D. 07/17/2022 8:12 PM
[2022-07-17] MEDS: ONDANSETRON INJ 2 MG/ML 2 ML VIAL IV SCH (21:43)
[2022-07-17] MEDS: FLUTICASONE FUROATE 100MCG 14 PUFFS/INHALER INH SCH (21:44)
[2022-07-17] MEDS: PANTOprazole 40 MG in SYRINGE 0 ML IV SCH (21:44)
[2022-07-18] MEDS: ALBUTEROL 0.5% NEB SOLN 2.5 MG/0.5 ML VIAL NEB SCH ×3 (02:59→11:15)
[2022-07-18 05:50] LABS: Hematocrit (blood only) 39.7 % (34.1-44.9); Hemoglobin 13.5 g/dl (12.0-16.0); Mean Corpuscular Hemoglobin 30.3 pg (25.0-34.0); Platelet Count 284 K/uL (130-400); RDW Coefficient of Variation 13.7 % (11.5-14.5); RDW Standard Deviation 44.6 fL (36.4-46.3); Red Blood Count 4.46 M/uL (3.93-5.22); White Blood Count 9.31 K/ul (4.8-10.8)
[2022-07-18] MEDS: ONDANSETRON INJ 2 MG/ML 2 ML VIAL IV SCH ×5 (05:50→23:27)
[2022-07-18 06:31] LABS: Creatinine Clr Calc Pharmacy 61.2 ml/min; Est GFR (Non-African American) 69.9 ml/min; Magnesium 2.1 mg/dl (1.7-2.4); Potassium 5.2 mmol/L (3.5-5.1)
[2022-07-18] MEDS: FLUTICASONE FUROATE 100MCG 14 PUFFS/INHALER INH SCH (07:56)
[2022-07-18] MEDS: CITALOPRAM 40 MG TAB PO SCH (07:57)
[2022-07-18] MEDS: ESTROGENS, CONJUGATED 0.625 MG TAB PO SCH (07:57)
[2022-07-18] MEDS: PANTOprazole 40 MG in SYRINGE 0 ML IV SCH (08:00)
[2022-07-18] MEDS: guaiFENesin/CODEINE 100MG/10MG 5ML UDC PO PRN ×2 (08:03→17:32)
[2022-07-18] MEDS ORDERED: ALBUTEROL HFA 8 GM INHALER INH PRN (11:25)
[2022-07-18] MEDS ORDERED: diphenhydrAMINE 50 MG/ML VIAL IV PRN (12:01)
[2022-07-18] MEDS ORDERED: EPINEPHrine INJ 1 MG/ML AMP IM PRN (12:01)
--- NOTE | 2022-07-18 12:17 | Hospitalist Progress Note ---
Date of Service July 18, 2022 Assessment & Plan (1) Asthma exacerbation: Plan: -Admit to PCU - CT-Chest: 1. Bronchial wall thickening suggestive of bronchitis or reactive airway disease with mild bibasilar mucous plugging and left basilar atelectasis. 2. No adenopathy, pleural effusion or airspace consolidation typical for pneumonia. -Patient has a history of severe allergic reaction to prednisone 7 years ago. Spoke to inpatient pharmacy on admit, initially recommended to avoid glucocorticoids. -Patient is currently afebrile, hemodynamically stable, and currently stable on room air but with persistent shortness of breath, wheezing and difficulty ambulating due to shortness of breath -Patient was given a 1 hour continuous albuterol nebulizer in the ED without improvement of symptoms -Patient is treated overnight with steroid inhaler, nebulizer treatments, guaifenesin with codeine to help suppress cyclical cough, and magnesium Patient had about 50% improvement in her symptoms morning of 07/18 with above treatments, but incomplete resolution of cough and feeling of wheezing and with diffuse wheezes on forced expiration and left lower wheeze on regular deep inspiration Discussed risk/benefits of starting IV steroids for asthma exacerbation. Kim horan her reaction to oral prednisone in the past was likely due to filler rather than the prednisone itself, but a anaphylactic reaction to glucocorticoids while rare cannot be ruled out. Given her failure to improve definitely without systemic steroid treatment, tolerance of both budesonide and fluticasone, and potential benefit for her asthma with IV steroids did discuss a trial of methylprednisolone versus prednisone versus dexamethasone with patient. In case of allergic reaction would avoid dexamethasone due to extremely long half-life. Patient understands that she could have a reaction to methylprednisolone or hydrocortisone that could progress to life-threatening respiratory distress, but notes if she is going to try a steroid she would prefer it to be in the hospital especially if it could be important for her with asthma in the future. On shared decision making we will try methylprednisolone due to both his half-life, IV formulation in relation to prednisone to test allergy versus filler, and potential benefit for asthma. Discussed with pharmacy, and nursing staff will start on methylprednisolone 40 mg twice daily and IV Benadryl and IM epinephrine have been ordered to bedside Continue flutter valve No signs of atypical/superimposed pneumonia on CT, PCT pending (2) GERD (gastroesophageal reflux disease): Plan: -40 mg IV Protonix daily (3) Anxiety: Plan: -Continue Celexa Admission and Anticipated Discharge Date Admission Date: July 17, 2022 Subjective Seen at bedside. Feels like she was 10% of her normal baseline in ER, feels about 50% now but still significantly wheezing and dyspneic, with coughing spells that persist. Cough is improved overnight with guaifenesin/codeine. Denies fever, chills, sweats, lightheadedness, dizziness, chest pressure. Does have some rib pain while coughing. Productive for clear sputum. Interested in a steroid trial which was discussed at bedside as noted below in H&P Review of Systems Review of Systems: All systems reviewed & are unremarkable except as noted in Subjective Physical Exam Physical Exam: General: A&Ox3. NAD. Cooperative. HEENT: Atraumatic, normocephalic. Pupils equal and reactive to light, vision/hearing grossly intact Pulm: Left lower lobe expiratory wheeze with normal inspiration, diffuse wheezing on forced expiration which is limited by cough. Symmetrical chest ri se. No increase in work of breathing. No respiratory distress. Cardiac: RRR, -mrg. Radial pulses intact and symmetrical. Abdominal: Nontender, nondistended, soft. BS present. Results & Data Results & Data ([facility]) Vital Signs (Past 12 Hours) Vital Signs Temp Pulse Resp BP Pulse Ox O2 Del Method 07/18/22 11:43 36.5 C 80 18 113/75 91 Room Air 07/18/22 11:27 77 18 98 Room Air 07/18/22 07:45 Room Air 07/18/22 07:45 36.4 C L 77 18 115/70 94 Room Air 07/18/22 07:18 79 18 96 Room Air 07/18/22 03:47 36.5 C 79 16 116/74 95 Room Air PG Care Time/CCT Total # of Minutes Spent Total Time Spent with Patient: Total time spent is greater than 50% in coordination of care (as documented) at patient's floor/unit and/or counseling patient: Coding Level of Care Code 09801 Subseq Hosp Care Lvl 2 Diagnoses Asthma exacerbation J45.901 GERD (gastroesophageal reflux disease) K21.9 Anxiety F41.9
[2022-07-18] MEDS: methylPREDNISolone 40 MG in SYRINGE 0 ML IV SCH ×2 (13:30→21:34)
[2022-07-18] MEDS: LEVALBUTEROL TARTRATE 15 GM HFA.AER.AD INH SCH ×3 (14:45→19:40)
[2022-07-18] MEDS: ENOXAPARIN INJ 40 MG/0.4 ML SYR SQ SCH (17:33)
[2022-07-18] MEDS ORDERED: methylPREDNISolone 40 MG in SYRINGE 0 ML IV SCH (21:00)
[2022-07-19] MEDS: guaiFENesin/CODEINE 100MG/10MG 5ML UDC PO PRN ×3 (00:38→12:46)
[2022-07-19] MEDS: COUGH DROP (SUGAR FREE) LOZ 24 LOZ/1 BOX BUCCAL PRN ×2 (04:16→06:03)
[2022-07-19] MEDS ORDERED: ALBUTEROL 0.083% NEBU SOLN 3 ML VIAL NEB ONE (04:31)
[2022-07-19] MEDS: ONDANSETRON INJ 2 MG/ML 2 ML VIAL IV SCH ×2 (06:02→12:14)
[2022-07-19 06:12] LABS: Hematocrit (blood only) 42.2 % (34.1-44.9); Hemoglobin 14.4 g/dl (12.0-16.0); Mean Corpuscular Hemoglobin 30.3 pg (25.0-34.0); Mean Corpuscular Hgb Conc 34.1 g/dL (32.0-36.0); Mean Corpuscular Volume 88.7 fL (80.0-100.0); Mean Platelet Volume 9.2 fL (9.4-12.3); Platelet Count 349 K/uL (130-400); RDW Coefficient of Variation 13.2 % (11.5-14.5); RDW Standard Deviation 43.4 fL (36.4-46.3); Red Blood Count 4.76 M/uL (3.93-5.22); White Blood Count 8.83 K/ul (4.8-10.8)
[2022-07-19 06:42] LABS: BUN Creatinine Ratio 18.1 (10-20); Calcium 9.6 mg/dl (8.5-10.1); Creatinine Clr Calc Pharmacy 64.9 ml/min; Magnesium 1.7 mg/dl (1.7-2.4); Potassium 4.3 mmol/L (3.5-5.1)
[2022-07-19] MEDS: LEVALBUTEROL TARTRATE 15 GM HFA.AER.AD INH SCH ×3 (07:14→14:55)
--- NOTE | 2022-07-19 09:13 | Hospitalist Progress Note ---
Date of Service July 19, 2022 Assessment & Plan (1) Asthma exacerbation: Plan: persistent shortness of breath, wheezing and difficulty ambulating due to shortness of breath -Patient was given a 1 hour continuous albuterol nebulizer in the ED without improvement of symptoms - CT-Chest: 1. Bronchial wall thickening suggestive of bronchitis or reactive airway disease with mild bibasilar mucous plugging and left basilar atelectasis. 2. No adenopathy, pleural effusion or airspace consolidation typical for pneumonia. -Patient has a history of severe allergic reaction to prednisone 7 years ago. Spoke to inpatient pharmacy on admit, initially recommended to avoid glucocorticoids. Dr Olmedo Discussed risk/benefits of starting IV steroids for asthma exacerbation. Suspect her reaction to oral prednisone in the past was likely due to filler rather than the prednisone itself, but a anaphylactic reaction to glucocorticoids while rare cannot be ruled out. Given her failure to improve definitely without systemic steroid treatment, tolerance of both budesonide and fluticasone, and potential benefit for her asthma with IV steroids did discuss a trial of methylprednisolone versus prednisone versus dexamethasone with patient. In case of allergic reaction would avoid dexamethasone due to extremely long half-life. Patient understands that she could have a reaction to methylprednisolone or hydrocortisone that could progress to life-threatening respiratory distress, but notes if she is going to try a steroid she would prefer it to be in the hospital especially if it could be important for her with asthma in the future. On shared decision making we will try methylprednisolone due to both his half-life, IV formulation in relation to prednisone to test allergy versus filler, and potential benefit for asthma. Discussed with pharmacy, and nursing staff will start on methylprednisolone 40 mg twice daily and IV Benadryl and IM epinephrine have been ordered to bedside Continue flutter valve (2) GERD (gastroesophageal reflux disease): Plan: -40 mg IV Protonix daily (3) Anxiety: Plan: -Continue Celexa Admission and Anticipated Discharge Date Admission Date: July 17, 2022 Results & Data Results & Data ([facility]) Vital Signs (Past 12 Hours) Vital Signs Temp Pulse Pulse Resp BP Pulse Ox O2 Del Method 07/19/22 08:36 97.3 F L 73 18 130/80 97 Room Air 07/19/22 07:14 96 H 18 94 Room Air 07/19/22 03:39 97.7 F 74 20 118/76 93 Room Air 07/19/22 02:38 74 07/18/22 23:45 97.7 F 80 18 124/75 91 Room Air 07/18/22 21:45 Room Air PG Care Time/CCT Total # of Minutes Spent Total Time Spent with Patient: Total time spent is greater than 50% in coordination of care (as documented) at patient's floor/unit and/or counseling patient: Coding Diagnoses Asthma exacerbation J45.901 GERD (gastroesophageal reflux disease) K21.9 Anxiety F41.9
[2022-07-19] MEDS: methylPREDNISolone 40 MG in SYRINGE 0 ML IV SCH (10:04)
[2022-07-19] MEDS: PANTOprazole 40 MG in SYRINGE 0 ML IV SCH (10:04)
[2022-07-19] MEDS: ESTROGENS, CONJUGATED 0.625 MG TAB PO SCH (10:05)
[2022-07-19] MEDS: CITALOPRAM 40 MG TAB PO SCH (10:05)
[2022-07-19] MEDS: FLUTICASONE FUROATE 100MCG 14 PUFFS/INHALER INH SCH (10:05)
[2022-07-19] MEDS ORDERED: prednisoLONE sod phosphate 15 MG/5 ML PO ONE (14:00)
--- NOTE | 2022-07-19 16:37 | Discharge Summary ---
Date of Service July 19, 2022 Admission HPI Per Admitting Provider Светлана is a 61 year old female with a PMH significant for asthma, chronic migraines, GERD, allergic rhinitis, and anxiety who presented to the [facility] ED on 07/17/22 with a chief complaint of increased wheezing/SOB for the past 2 weeks. At the time of the exam the patient was sitting up in bed coughing and in mild distress. She states that approximately 2 weeks ago she started to develop increased wheezing/SOB and cough which has continued to progress. She states that her asthma is normally well controlled on daily Budesonide and prn albuterol. She has been using both breathing treatments as prescribed without relief the past two weeks. She notes during this time that she had been cleaning the house and use of a cleaning spray seemed to make her symptoms worse, she also notes that her symptoms progressed after her mowed the lawn earlier this week. She does not have a plastic worker but did go to acute care on 07/08/22 for her symptoms. They prescribed her Doxycycline (which she completed) and Tessalon pearls, both of which did not improve her symptoms. She has been having a productive cough up until yesterday, she notes that the sputum was white. She is anxious because when her cough is bad she is unable to speak in complete sentences. From all of her coughing she has developed substernal chest pain, the chest pain is reproducible and exacerbated with coughing. In ED the patient's labs were remarkable for negative Covid, RSV, and influenza testing, a high sensitivity of troponin of 2.6 and D-dimer of 380. Chest xray was negative for acute findings . In the ED the patient was given 1 hour of continuous albuterol nebulization which did not improve her symptoms. I spoke to the patient regarding her previous allergic reaction to prednisone in the past. She states that 7 years ago she was started on prednisone for her chronic migraines. Shortly after taking the prednisone she states that her face and throat swelled significantly requiring admission. Since then she has not been on any gl ucocorticoids. She does take inhaled Budesonide without issue. Principal Diagnosis asthma exacerbation Discharge Exam The patient appeared stable Vital signs as documented. Lungs are clear with exception of a few musical sound wheezing to the left base Cardiac exam, Rhythm is regular.. No murmurs, rubs or gallops. Abdominal exam reveals normal bowel sounds, soft non tender, no masses Extremities are nonedematous and both pedal pulses are normal. Neurologic exam is alert and oriented, no focal loss of strength or sensation Skin is without bruises or rashes Psychologically is without concerns for anxiety or depression. Discharge Data Allergies Allergy/AdvReac Type Severity Reaction Status Date / Time estradiol Allergy Severe THROAT Verified 05/12/22 14:38 SWELLING meperidine Allergy Severe THROAT Verified 05/12/22 14:38 SWELLING, DIFFICULTY BREATHING prednisone Allergy Severe SHORTNESS Verified 05/12/22 14:38 OF BREATH Consultations 07/17/22 14:50 ED Decision to Admit Stat Ordered Studies 07/17/22 18:08 CT chest without contrast [CT chest diagnostic wo con] Routine Hospital Course (1) Asthma exacerbation: persistent shortness of breath, wheezing and difficulty ambulating due to shortness of breath -Patient was given a 1 hour continuous albuterol nebulizer in the ED without improvement of symptoms, subsequently resolved - CT-Chest: 1. Bronchial wall thickening suggestive of bronchitis or reactive airway disease with mild bibasilar mucous plugging and left basilar atelectasis. 2. No adenopathy, pleural effusion or airspace consolidation typical for pneumonia. Patient's had dramatic improvement with exception of paroxysmal coughing for which she is given home guaifenesin with codeine. She was warned on the possible addiction potentials of opiates -Patient has a history of severe allergic reaction to prednisone 7 years ago. Patient was able to tolerate a dose of IV methylprednisolone. Subsequently chose p.o. prednisolone patient had a dose of p.o. prednisolone prior to leaving she tolerated this without any worsening or recurrence of any allergy-like symptoms. Subsequently patient is dosed home prednisone tapering dose over 9 days. The patient will see her primary care but strongly be recommended to be referred to an pilot control operator for both testing for her asthma and also her possible prednisone allergy. Prescription sent to the pharmacy also include EpiPen (2) GERD (gastroesophageal reflux disease): - patient will continue outpatient Dexilant (3) Anxiety: -Continue Celexa Total Time Total Time Spent Total Time Spent (In Minutes): It required greater than 30 minutes to prepare this patient for discharge Discharge Plan Discharge Items Patient Disposition: Home - Self-Care Reason For Visit: WHEEZING Discharge Diagnosis: asthma exacerbation Activity: Per Instructions section Activity Comment: slowly increase activity Non-emergency contact: Primary Care Provider Follow-up/Referrals: Anastasiya Underwood DO [Primary Care Provider] - Diet: Regular Addtl Attending Provider Instructions: please see your primary care in a week and also follow up with an pilot control operator taper doses of prednisolone, continue inhalers, and you may augment Benadryl if needed for allergy like symptoms, if you find that you are using benadry frequently you may add a daily over the counter dose of Zyrtec or Claritin. DR Trevizo is a local pilot control operator and may need some information from your pcp to s jorge alberto an office referral, please ask about this Pending Studies at Discharge: No Stand-Alone Forms: My [employer], Smoking Cessation Medications and DC Order Prescriptions: New codeine-guaifenesin [Guaiatussin AC] 10-100 mg/5 mL Liquid 5 - 10 ml PO Q6H PRN (Reason: cough) Qty: 237 0RF levalbuterol tartrate [Xopenex HFA] 45 mcg/actuation Hfa Aerosol Inhaler 1 puff inhalation QIDR Qty: 1 2RF prednisolone 15 mg/5 mL solution 15 mg PO UD Qty: 120 0RF Rx Instructions: 45mg daily x 3d, then 30 mg daily x 3 d, then 15 mg a day x 3 d then stop Continued Pulmicort Flexhaler 180 mcg/actuation aerosol powdr breath activated 1 inh inhalation DAILY PRN (Reason: allergic symptoms) Qty: 1 5RF dexlansoprazole [Dexilant] 60 mg capsule,biphase delayed releas 60 mg PO DAILY Qty: 30 2RF citalopram 40 mg tablet 40 mg PO QAM 90 Days Qty: 90 1RF Premarin 0.625 mg tablet 0.625 mg PO QAM Qty: 90 1RF Nurtec ODT 75 mg tablet,disintegrating 75 mg PO .every 48hrs PRN (Reason: Migraine Headache) Qty: 15 1RF Discontinued albuterol sulfate 90 mcg/actuation HFA aerosol inhaler 2 puff INHALATION QID PRN (Reason: Wheezing) Qty: 8.5 1RF albuterol sulfate 2.5 mg /3 mL (0.083 %) solution for nebulization 2.5 mg inhalation QID PRN (Reason: shortness of breath or wheezing) Qty: 90 0RF No Action (DME) nebulizers Misc See Rx Instructions .Route Qty: 1 0RF Rx Instructions: Use as directed Discharge Orders: Discharge Order (Routine); Ordered 07/19/22 Ordered By: Too Pradhan Admission Data Admit Date/Time: 07/17/22 15:12 Attending Provider: Too Pradhan Admit Provider: Ochoa Brizuela Primary Care Provider: Anastasiya Underwood Other Providers: Ochoa Brizuela Coding Level of Care Code D/C DAY MANAGEMENT >30 MINS Diagnoses Asthma exacerbation J45.901 GERD (gastroesophageal reflux disease) K21.9 Anxiety F41.9
--- NOTE | 2022-07-22 12:33 | Communication Note ---
Date of Service: July 22, 2022 pt called with extreme fatigue, no shortness of breath no cough recommended to stop codiene and stop prednisolone, placed orders for lab check on sunday, has pcp follow up 07/28 instructed to come to ER if she feels it would be beneficial
== END 2022-07-19 18:06 | disposition home or self-care (01) | DRG 203 ==
LOC: ED 11:00 → 4W 15:12 → SUATTDRO 15:12 → 4W 16:28

== ENCOUNTER 2022-07-23 12:32 | Observation (INO) ==
[2022-07-23 13:21] LABS: Basophils # (auto) 0.03 K/uL (0-0.2); Basophils % (auto) 0.5 %; Eosinophils # (auto) 0.93 K/uL (0-0.50); Eosinophils % (auto) 14.4 %; Hematocrit (blood only) 40.7 % (34.1-44.9); Hemoglobin 14.1 g/dl (12.0-16.0); Immature Granulocytes # (auto) 0.02 K/uL (0.00-0.02); Immature Granulocytes % (auto) 0.3 %; Lymphocytes # (auto) 1.53 K/uL (1.2-3.4); Lymphocytes % (auto) 23.7 %; Mean Corpuscular Hemoglobin 29.9 pg (25.0-34.0); Mean Corpuscular Hgb Conc 34.6 g/dL (32.0-36.0); Mean Corpuscular Volume 86.4 fL (80.0-100.0); Mean Platelet Volume 9.1 fL (9.4-12.3); Monocytes # (auto) 0.35 K/uL (0.24-0.82); Monocytes % (auto) 5.4 %; Neutrophils # (auto) 3.59 K/uL (1.4-6.5); Neutrophils % (auto) 55.7 %; Platelet Count 300 K/uL (130-400); RDW Coefficient of Variation 12.8 % (11.5-14.5); RDW Standard Deviation 40.7 fL (36.4-46.3); Red Blood Count 4.71 M/uL (3.93-5.22); White Blood Count 6.45 K/ul (4.8-10.8)
[2022-07-23 14:37] LABS: Alanine Aminotransferase 14 U/L (7-52); Albumin Globulin Ratio 1.2 (0.9-2); Albumin Level 3.6 gm/dl (3.4-5.0); Alkaline Phosphatase 65 U/L (34-104); Anion Gap 8 (3-11); Aspartate Aminotransferase 14 U/L (13-39); BUN Creatinine Ratio 22.5 (10-20); Bilirubin,Total 0.3 mg/dl (0.2-1.0); Blood Urea Nitrogen 16 mg/dl (6-23); Calcium 9.1 mg/dl (8.5-10.1); Carbon Dioxide 27 mmol/L (21-32); Chloride 103 mmol/L (98-107); Est GFR (African American) 105.1 ml/min; Est GFR (Non-African American) 90.7 ml/min; Glucose 87 mg/dl (70-99(Fasting)); Potassium 3.8 mmol/L (3.5-5.1); Sodium 138 mmol/L (136-145); Total Protein 6.6 gm/dl (6.0-8.3)
--- NOTE | 2022-07-23 15:13 | Emergency Department Note ---
Impression & Plan Weakness ED Provider Note NAME: KRISTI RODRIGUEZ AGE: 61 SEX: F : 1960 ARRIVES VIA: Walk-In INFORMANT: [Patient][, ] ED PROVIDER(S): [Matthew Reyna MD] Chief Complaint: Weakness and fatigue HPI: Patient presents due to concern for weakness and associated fatigue. The patient states that she has been feeling this way ever since she left the hospital. The patient did have an inpatient admission 3 days due to concern for an asthma exacerbation and was discharged on Sunday. The patient has not used any of her asthma medications for the last 2 days. Patient did have some nausea earlier today but no vomiting. The patient has any chest pains or shortness of breath. The patient states that she feels jittery on the inside but on the outside. Patient denies any known tick bites or history of Lyme's. The patient denies any numbness tingling or focal weakness. No recent falls or trauma denies any head or neck pain. The patient does not complain of any a sending weakness. ROS: See HPI for pertinent positives and negatives. A total of 10 systems were reviewed and otherwise negative. Past medical history: See below Surgical history: See below Social history: See below Physical Exam: GENERAL: NAD, [wearing a mask,] non-toxic. Fatigued in appearance. EYE EXAM: Normal conjunctiva. PERRL, no anisocoria and EOM's grossly intact w/o pain. NECK: Supple, no nuchal rigidity, no adenopathy, non-tender. No signs of meningismus. FROM of the neck with good chin to chest and neck extension. No stridor. LUNGS: Clear to auscultation. Normal chest wall mechanics. HEART: NSR, no MRG. ABDOMEN: Abdomen soft, non-tender, normo-active bowel sounds, no masses, no rebound or guarding. BACK: No CVA TTP. SKIN: No rashes and no bruising. UPPER EXTREMITIES: Upper extremities are grossly normal. LOWER EXTREMITIES: Grossly normal, no edema. NEURO EXAM: A&O x3, cranial nerves II-XII grossly intact, slow deliberate speech, moves all 4 extremities. Good finger-nose test, no drift and no sensory deficits. Differential diagnoses: Infection, dehydration, metabolic abnormality, hypo/hyperglycemia, electrolyte disturbance, anemia, hypoxia, cardiac sources, intracerebral event, toxicologic, neurologic, as well as other pathologies. Course: Patient was seen and evaluated the bedside. Full history physical exam was performed. Imaging Studies: See Below Cardiac monitoring: An order was placed for continuous cardiac monitoring. The monitor shows a rate of 77 with sinus rhythm. MDM: Patient presents due to concern for weakness. Patient states that this began more on Sunday. The patient did have a recent hospitalization for an asthma attack. The patient had called and was told to stop her cough suppressant with codeine as well as her prednisone. The patient denies any chest pains or shortness of breath. Patient did have blood work completed. Patient is clear lung sounds and has normal vital signs. The patient did receive IV fluids. The patient has normal white count H&H platelet count. Kidney function grossly unremarkable albeit with prerenal azotemia. Urinalysis does not show evidence of blood or infection. Lyme's and TSH are negative. COVID-negative. I did have repeat discussion with the patient and the patient does feel incredibly weak and feels as though she is unable to go home. I did offer rehab or PT which she declined. The patient believes that she needs to be admitted. I did state that I would be happy to speak with the on-call hospitalist will evaluate the patient. I did speak with Dr. Pradhan to consult on the patient. Patient was subsequently admitted to the medicine service by Dr. Pradhan. 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/FOLLOWS WITH [facility] Migraine Sneezing Temporomandibular joint disorder BILAT CLCIKS-NO LOCKING Surgical History H/O bilateral oophorectomy H/O dilation of urethra H/O nasal septoplasty H/O tubal ligation History of esophagogastroduodenoscopy (EGD) History of tonsillectomy and adenoidectomy Hx of appendectomy S/P arthroscopy of left shoulder (04/2021) S/P arthroscopy of right shoulder (2016) S/P left knee arthroscopy HX S/P IVORY (total abdominal hysterectomy) HX Family History Father Diabetes Alcohol abuse Mother Anxiety Breast cancer Aunt Breast cancer Family/Other Colorectal cancer grandparent Sister Breast cancer Sister Breast cancer Brother Factor V Leiden Heterozygous for MTHFR gene mutation Other No family history of adverse response to anesthesia Denies family history of Ovarian cancer Prostate cancer Myocardial infarction Social History Smoking Status: Never smoker Second Hand Exposure: No; Do You Dip or Chew Tobacco: No; Hx Alcohol Use: Yes Alcohol type: beer Alcohol Intake Frequency: Monthly or Less Alcohol Intake Frequency Comment: socially Hx Substance Use: No Preferred Language: Somali Communication Ability: Effective Visual Impairment: No Limitations Hearing Ability: Normal Eligibility Supervisor Required: No Beliefs That Will Affect Care: None marital status: Current Living Situation: Spouse current occupational status: retired Other Information That Helps Us Care for You: No Feels Safe at Home: Yes Safety Concerns: Feels Safe At This Time Childhood Exposure to Second-Hand Smoke: No caffeine: Yes (Coffee x 2 per day) during the past year weight has: remained stable Dental Care, Regularly: Yes Physical Activity Frequency: Daily Seatbelt Use: always Sunscreen Use: Yes Assistive Devices: None Allergies Allergies Allergy/AdvReac Type Severity Reaction Status Date / Time estradiol Allergy Severe THROAT Verified 07/23/22 17:06 SWELLING meperidine Allergy Severe THROAT Verified 07/23/22 17:06 SWELLING, DIFFICULTY BREATHING prednisone Allergy Severe SHORTNESS Verified 07/23/22 17:06 OF BREATH Home Meds Previous Rx's Medication Instructions Recorded budesonide 180 mcg/actuation 1 inh inhalation DAILY PRN 04/06/22 breath activated powder inhaler allergic symptoms #1 ea (Pulmicort Flexhaler) rimegepant 75 mg disintegrating 75 mg PO .every 48hrs PRN Migraine 04/27/22 tablet (Nurtec ODT) Headache #15 tabs citalopram 40 mg tablet 40 mg PO QAM 90 days #90 tabs 07/04/22 conjugated estrogens 0.625 mg 0.625 mg PO QAM #90 tabs 07/04/22 tablet (Premarin) dexlansoprazole 60 mg 60 mg PO DAILY #30 caps 07/04/22 capsule,biphase delayed release (Dexilant) nebulizers #1 ea 07/11/22 codeine 10 mg-guaifenesin 100 mg/5 5 - 10 ml PO Q6H PRN cough #237 mL 07/19/22 mL oral liquid (Guaiatussin AC) epinephrine 0.3 mg/0.3 mL 0.3 mg (0.3 mL) IM Q4H PRN 07/19/22 injection, auto-injector (Auvi-Q) anaphylaxis #2 ea levalbuterol tartrate 45 1 puff inhalation QIDR #1 inhaler 07/19/22 mcg/actuation aerosol inhaler (Xopenex HFA) thiamine HCl (vitamin B1) 100 mg 100 mg PO QAM #30 tabs 07/25/22 tablet Results & Data (ED) Vital Signs Vital Signs - 24 hr 07/25/22 12:19 Temperature 36.4 C L Temperature Source Oral Pulse Rate [Finger] 84 Respiratory Rate 16 Respiratory Effort / Characteristics Non-Labored Spontaneous Respiratory Depth Normal Respiratory Pattern Regular Blood Pressure [Left Arm] 114/77 Blood Pressure Mean [Left Arm] 89 Blood Pressure Position [Left Arm] Lying Pulse Oximetry 97 Oxygen Delivery Method Room Air Home Medications Current Medication List: was personally reviewed by me Laboratory Data Attestation: I reviewed the patient's lab results. Result diagrams: 07/25/22 05:12 07/24/22 07:53 Lab Results 07/23/22 07/23/22 07/23/22 Range/Units 13:08 13:08 13:08 WBC 6.45 (4.8-10.8) K/ul RBC 4.71 (3.93-5.22) M/uL Hgb 14.1 (12.0-16.0) g/dl Hct 40.7 (34.1-44.9) % MCV 86.4 (80.0-100.0) fL MCH 29.9 (25.0-34.0) pg MCHC 34.6 (32.0-36.0) g/dL RDW Std Deviation 40.7 (36.4-46.3) fL RDW Coeff of Kirby 12.8 (11.5-14.5) % Plt Count 300 (130-400) K/uL MPV 9.1 L (9.4-12.3) fL Immature Gran % (Auto) 0.3 % Neut % (Auto) 55.7 % Lymph % (Auto) 23.7 % Hanson % (Auto) 5.4 % Eos % (Auto) 14.4 % Baso % (Auto) 0.5 % Neut # (Auto) 3.59 (1.4-6.5) K/uL Lymph # (Auto) 1.53 (1.2-3.4) K/uL Hanson # (Auto) 0.35 (0.24-0.82) K/uL Eos # (Auto) 0.93 H (0-0.50) K/uL Baso # (Auto) 0.03 (0-0.2) K/uL Immature Gran # (Auto) 0.02 (0.00-0.02) K/uL ESR (0-30) mm/hr Sodium 138 (136-145) mmol/L Potassium 3.8 (3.5-5.1) mmol/L Chloride 103 (98-107) mmol/L Carbon Dioxide 27 (21-32) mmol/L Anion Gap 8 (3-11) BUN 16 (6-23) mg/dl Creatinine 0.71 (0.6-1.2) mg/dl Est Cr Clr Drug Dosing Not Reportable Est GFR ( Amer) 105.1 ml/min Est GFR (Non-Af Amer) 90.7 ml/min BUN/Creatinine Ratio 22.5 H (10-20) Glucose 87 (70-99(Fasting)) mg/dl Calcium 9.1 (8.5-10.1) mg/dl Magnesium (1.7-2.4) mg/dl Total Bilirubin 0.3 (0.2-1.0) mg/dl AST 14 (13-39) U/L ALT 14 (7-52) U/L Alkaline Phosphatase 65 (34-104) U/L Troponin I High Sens 2.4 (0-14) pg/ml C-Reactive Protein (0-0.5) mg/dl Total Protein 6.6 (6.0-8.3) gm/dl Albumin 3.6 (3.4-5.0) gm/dl Globulin 3.0 (2.5-4.0) gm/dl Albumin/Globulin Ratio 1.2 (0.9-2) Vitamin B12 (180-914) pg/ml Folate (>5.38) ng/ml TSH (0.300-4.500) uIu/ml Free T4 (0.61-1.60) ng/dl Cortisol AM Sample (6.2-22.6) mcg/dl Urine Color Urine Appearance (Clear) Urine pH (4.5-7.5) Ur Specific [place] (1.000-1.030) Urine Protein (Negative) Urine Glucose (UA) (Negative) Urine Ketones (Negative) Urine Blood (Negative) Urine Nitrite (Negative) Urine Bilirubin (Negative) Urine Urobilinogen (Negative) Ur Leukocyte Esterase (Negative) Anaplasma Smear Babesia Smear Babesia microti DNA PCR (Not Detected) Lyme Disease IgG Ab (Negative) Lyme Disease IgM Ab (Negative) EBV Capsid Ag IgG Ab U/mL EBV Capsid Ag IgM Ab U/mL EBV EA Restrict+Diffuse U/mL EBV Nuclear Antigen Ab U/mL EBV Antibody Interp Monoscreen (Negative) SARS-CoV-2, RNA, NAAT (NEGATIVE) 07/23/22 07/23/22 07/23/22 Range/Units 13:08 13:08 15:20 WBC (4.8-10.8) K/ul RBC (3.93-5.22) M/uL Hgb (12.0-16.0) g/dl Hct (34.1-44.9) % MCV (80.0-100.0) fL MCH (25.0-34.0) pg MCHC (32.0-36.0) g/dL RDW Std Deviation (36.4-46.3) fL RDW Coeff of Kirby (11.5-14.5) % Plt Count (130-400) K/uL MPV (9.4-12.3) fL Immature Gran % (Auto) % Neut % (Auto) % Lymph % (Auto) % Hanson % (Auto) % Eos % (Auto) % Baso % (Auto) % Neut # (Auto) (1.4-6.5) K/uL Lymph # (Auto) (1.2-3.4) K/uL Hanson # (Auto) (0.24-0.82) K/uL Eos # (Auto) (0-0.50) K/uL Baso # (Auto) (0-0.2) K/uL Immature Gran # (Auto) (0.00-0.02) K/uL ESR (0-30) mm/hr Sodium (136-145) mmol/L Potassium (3.5-5.1) mmol/L Chloride (98-107) mmol/L Carbon Dioxide (21-32) mmol/L Anion Gap (3-11) BUN (6-23) mg/dl Creatinine (0.6-1.2) mg/dl Est Cr Clr Drug Dosing Est GFR ( Amer) ml/min Est GFR (Non-Af Amer) ml/min BUN/Creatinine Ratio (10-20) Glucose (70-99(Fasting)) mg/dl Calcium (8.5-10.1) mg/dl Magnesium (1.7-2.4) mg/dl Total Bilirubin (0.2-1.0) mg/dl AST (13-39) U/L ALT (7-52) U/L Alkaline Phosphatase (34-104) U/L Troponin I High Sens (0-14) pg/ml C-Reactive Protein (0-0.5) mg/dl Total Protein (6.0-8.3) gm/dl Albumin (3.4-5.0) gm/dl Globulin (2.5-4.0) gm/dl Albumin/Globulin Ratio (0.9-2) Vitamin B12 (180-914) pg/ml Folate (>5.38) ng/ml TSH 0.928 (0.300-4.500) uIu/ml Free T4 (0.61-1.60) ng/dl Cortisol AM Sample (6.2-22.6) mcg/dl Urine Color Yellow Urine Appearance Clear (Clear) Urine pH 6.5 (4.5-7.5) Ur Specific [place] 1.005 (1.000-1.030) Urine Protein Negative (Negative) Urine Glucose (UA) Negative (Negative) Urine Ketones Negative (Negative) Urine Blood Negative (Negative) Urine Nitrite Negative (Negative) Urine Bilirubin Negative (Negative) Urine Urobilinogen Negative (Negative) Ur Leukocyte Esterase Negative (Negative) Anaplasma Smear Babesia Smear Babesia microti DNA PCR (Not Detected) Lyme Disease IgG Ab Negative (Negative) Lyme Disease IgM Ab Negative (Negative) EBV Capsid Ag IgG Ab U/mL EBV Capsid Ag IgM Ab U/mL EBV EA Restrict+Diffuse U/mL EBV Nuclear Antigen Ab U/mL EBV Antibody Interp Monoscreen (Negative) SARS-CoV-2, RNA, NAAT (NEGATIVE) 07/23/22 07/23/22 07/23/22 Range/Units 15:45 18:08 19:13 WBC (4.8-10.8) K/ul RBC (3.93-5.22) M/uL Hgb (12.0-16.0) g/dl Hct (34.1-44.9) % MCV (80.0-100.0) fL MCH (25.0-34.0) pg MCHC (32.0-36.0) g/dL RDW Std Deviation (36.4-46.3) fL RDW Coeff of Kirby (11.5-14.5) % Plt Count (130-400) K/uL MPV (9.4-12.3) fL Immature Gran % (Auto) % Neut % (Auto) % Lymph % (Auto) % Hanson % (Auto) % Eos % (Auto) % Baso % (Auto) % Neut # (Auto) (1.4-6.5) K/uL Lymph # (Auto) (1.2-3.4) K/uL Hanson # (Auto) (0.24-0.82) K/uL Eos # (Auto) (0-0.50) K/uL Baso # (Auto) (0-0.2) K/uL Immature Gran # (Auto) (0.00-0.02) K/uL ESR (0-30) mm/hr Sodium (136-145) mmol/L Potassium (3.5-5.1) mmol/L Chloride (98-107) mmol/L Carbon Dioxide (21-32) mmol/L Anion Gap (3-11) BUN (6-23) mg/dl Creatinine (0.6-1.2) mg/dl Est Cr Clr Drug Dosing Est GFR ( Amer) ml/min Est GFR (Non-Af Amer) ml/min BUN/Creatinine Ratio (10-20) Glucose (70-99(Fasting)) mg/dl Calcium (8.5-10.1) mg/dl Magnesium (1.7-2.4) mg/dl Total Bilirubin (0.2-1.0) mg/dl AST (13-39) U/L ALT (7-52) U/L Alkaline Phosphatase (34-104) U/L Troponin I High Sens (0-14) pg/ml C-Reactive Protein (0-0.5) mg/dl Total Protein (6.0-8.3) gm/dl Albumin (3.4-5.0) gm/dl Globulin (2.5-4.0) gm/dl Albumin/Globulin Ratio (0.9-2) Vitamin B12 (180-914) pg/ml Folate (>5.38) ng/ml TSH (0.300-4.500) uIu/ml Free T4 (0.61-1.60) ng/dl Cortisol AM Sample (6.2-22.6) mcg/dl Urine Color Urine Appearance (Clear) Urine pH (4.5-7.5) Ur Specific [place] (1.000-1.030) Urine Protein (Negative) Urine Glucose (UA) (Negative) Urine Ketones (Negative) Urine Blood (Negative) Urine Nitrite (Negative) Urine Bilirubin (Negative) Urine Urobilinogen (Negative) Ur Leukocyte Esterase (Negative) Anaplasma Smear Babesia Smear Babesia microti DNA PCR Not Detected (Not Detected) Lyme Disease IgG Ab (Negative) Lyme Disease IgM Ab (Negative) EBV Capsid Ag IgG Ab U/mL EBV Capsid Ag IgM Ab U/mL EBV EA Restrict+Diffuse U/mL EBV Nuclear Antigen Ab U/mL EBV Antibody Interp Monoscreen Negative (Negative) SARS-CoV-2, RNA, NAAT NEGATIVE (NEGATIVE) 07/23/22 07/24/22 07/24/22 Range/Units 19:13 04:44 07:53 WBC 5.06 (4.8-10.8) K/ul RBC 4.40 (3.93-5.22) M/uL Hgb 13.3 (12.0-16.0) g/dl Hct 38.7 (34.1-44.9) % MCV 88.0 (80.0-100.0) fL MCH 30.2 (25.0-34.0) pg MCHC 34.4 (32.0-36.0) g/dL RDW Std Deviation 41.0 (36.4-46.3) fL RDW Coeff of Kirby 12.8 (11.5-14.5) % Plt Count 257 (130-400) K/uL MPV 9.0 L (9.4-12.3) fL Immature Gran % (Auto) 0.4 % Neut % (Auto) 45.8 % Lymph % (Auto) 25.3 % Hanson % (Auto) 8.3 % Eos % (Auto) 19.8 % Baso % (Auto) 0.4 % Neut # (Auto) 2.32 (1.4-6.5) K/uL Lymph # (Auto) 1.28 (1.2-3.4) K/uL Hanson # (Auto) 0.42 (0.24-0.82) K/uL Eos # (Auto) 1.00 H (0-0.50) K/uL Baso # (Auto) 0.02 (0-0.2) K/uL Immature Gran # (Auto) 0.02 (0.00-0.02) K/uL ESR (0-30) mm/hr Sodium (136-145) mmol/L Potassium (3.5-5.1) mmol/L Chloride (98-107) mmol/L Carbon Dioxide (21-32) mmol/L Anion Gap (3-11) BUN (6-23) mg/dl Creatinine (0.6-1.2) mg/dl Est Cr Clr Drug Dosing Est GFR ( Amer) ml/min Est GFR (Non-Af Amer) ml/min BUN/Creatinine Ratio (10-20) Glucose (70-99(Fasting)) mg/dl Calcium (8.5-10.1) mg/dl Magnesium (1.7-2.4) mg/dl Total Bilirubin (0.2-1.0) mg/dl AST (13-39) U/L ALT (7-52) U/L Alkaline Phosphatase (34-104) U/L Troponin I High Sens (0-14) pg/ml C-Reactive Protein (0-0.5) mg/dl Total Protein (6.0-8.3) gm/dl Albumin (3.4-5.0) gm/dl Globulin (2.5-4.0) gm/dl Albumin/Globulin Ratio (0.9-2) Vitamin B12 (180-914) pg/ml Folate (>5.38) ng/ml TSH (0.300-4.500) uIu/ml Free T4 (0.61-1.60) ng/dl Cortisol AM Sample (6.2-22.6) mcg/dl Urine Color Urine Appearance (Clear) Urine pH (4.5-7.5) Ur Specific [place] (1.000-1.030) Urine Protein (Negative) Urine Glucose (UA) (Negative) Urine Ketones (Negative) Urine Blood (Negative) Urine Nitrite (Negative) Urine Bilirubin (Negative) Urine Urobilinogen (Negative) Ur Leukocyte Esterase (Negative) Anaplasma Smear Cancelled See Comment Babesia Smear Cancelled See Comment Babesia microti DNA PCR (Not Detected) Lyme Disease IgG Ab (Negative) Lyme Disease IgM Ab (Negative) EBV Capsid Ag IgG Ab 587.00 H U/mL EBV Capsid Ag IgM Ab <36.00 U/mL EBV EA Restrict+Diffuse 35.30 H U/mL EBV Nuclear Antigen Ab 25.70 H U/mL EBV Antibody Interp SEE NOTE Monoscreen (Negative) SARS-CoV-2, RNA, NAAT (NEGATIVE) 07/24/22 07/24/22 07/24/22 Range/Units 07:53 07:53 07:53 WBC (4.8-10.8) K/ul RBC (3.93-5.22) M/uL Hgb (12.0-16.0) g/dl Hct (34.1-44.9) % MCV (80.0-100.0) fL MCH (25.0-34.0) pg MCHC (32.0-36.0) g/dL RDW Std Deviation (36.4-46.3) fL RDW Coeff of Kirby (11.5-14.5) % Plt Count (130-400) K/uL MPV (9.4-12.3) fL Immature Gran % (Auto) % Neut % (Auto) % Lymph % (Auto) % Hanson % (Auto) % Eos % (Auto) % Baso % (Auto) % Neut # (Auto) (1.4-6.5) K/uL Lymph # (Auto) (1.2-3.4) K/uL Hanson # (Auto) (0.24-0.82) K/uL Eos # (Auto) (0-0.50) K/uL Baso # (Auto) (0-0.2) K/uL Immature Gran # (Auto) (0.00-0.02) K/uL ESR (0-30) mm/hr Sodium 140 (136-145) mmol/L Potassium 4.2 (3.5-5.1) mmol/L Chloride 104 (98-107) mmol/L Carbon Dioxide 29 (21-32) mmol/L Anion Gap 7 (3-11) BUN 11 (6-23) mg/dl Creatinine 0.72 (0.6-1.2) mg/dl Est Cr Clr Drug Dosing 74.9 Est GFR ( Amer) 103.3 ml/min Est GFR (Non-Af Amer) 89.1 ml/min BUN/Creatinine Ratio 15.3 (10-20) Glucose 87 (70-99(Fasting)) mg/dl Calcium 8.7 (8.5-10.1) mg/dl Magnesium 1.7 (1.7-2.4) mg/dl Total Bilirubin 0.4 (0.2-1.0) mg/dl AST 13 (13-39) U/L ALT 13 (7-52) U/L Alkaline Phosphatase 62 (34-104) U/L Troponin I High Sens (0-14) pg/ml C-Reactive Protein (0-0.5) mg/dl Total Protein 5.9 L (6.0-8.3) gm/dl Albumin 3.4 (3.4-5.0) gm/dl Globulin 2.5 (2.5-4.0) gm/dl Albumin/Globulin Ratio 1.4 (0.9-2) Vitamin B12 378 (180-914) pg/ml Folate 14.34 (>5.38) ng/ml TSH (0.300-4.500) uIu/ml Free T4 1.24 (0.61-1.60) ng/dl Cortisol AM Sample 13.64 (6.2-22.6) mcg/dl Urine Color Urine Appearance (Clear) Urine pH (4.5-7.5) Ur Specific [place] (1.000-1.030) Urine Protein (Negative) Urine Glucose (UA) (Negative) Urine Ketones (Negative) Urine Blood (Negative) Urine Nitrite (Negative) Urine Bilirubin (Negative) Urine Urobilinogen (Negative) Ur Leukocyte Esterase (Negative) Anaplasma Smear Babesia Smear Babesia microti DNA PCR (Not Detected) Lyme Disease IgG Ab (Negative) Lyme Disease IgM Ab (Negative) EBV Capsid Ag IgG Ab U/mL EBV Capsid Ag IgM Ab U/mL EBV EA Restrict+Diffuse U/mL EBV Nuclear Antigen Ab U/mL EBV Antibody Interp Monoscreen (Negative) SARS-CoV-2, RNA, NAAT (NEGATIVE) 07/25/22 07/25/22 07/25/22 Range/Units 05:12 05:12 05:12 WBC 6.13 (4.8-10.8) K/ul RBC 4.43 (3.93-5.22) M/uL Hgb 13.4 (12.0-16.0) g/dl Hct 39.0 (34.1-44.9) % MCV 88.0 (80.0-100.0) fL MCH 30.2 (25.0-34.0) pg MCHC 34.4 (32.0-36.0) g/dL RDW Std Deviation 41.3 (36.4-46.3) fL RDW Coeff of Kirby 12.8 (11.5-14.5) % Plt Count 267 (130-400) K/uL MPV 9.1 L (9.4-12.3) fL Immature Gran % (Auto) % Neut % (Auto) % Lymph % (Auto) % Hanson % (Auto) % Eos % (Auto) % Baso % (Auto) % Neut # (Auto) (1.4-6.5) K/uL Lymph # (Auto) (1.2-3.4) K/uL Hanson # (Auto) (0.24-0.82) K/uL Eos # (Auto) (0-0.50) K/uL Baso # (Auto) (0-0.2) K/uL Immature Gran # (Auto) (0.00-0.02) K/uL ESR 13 (0-30) mm/hr Sodium (136-145) mmol/L Potassium (3.5-5.1) mmol/L Chloride (98-107) mmol/L Carbon Dioxide (21-32) mmol/L Anion Gap (3-11) BUN (6-23) mg/dl Creatinine (0.6-1.2) mg/dl Est Cr Clr Drug Dosing Est GFR ( Amer) ml/min Est GFR (Non-Af Amer) ml/min BUN/Creatinine Ratio (10-20) Glucose (70-99(Fasting)) mg/dl Calcium (8.5-10.1) mg/dl Magnesium (1.7-2.4) mg/dl Total Bilirubin (0.2-1.0) mg/dl AST (13-39) U/L ALT (7-52) U/L Alkaline Phosphatase (34-104) U/L Troponin I High Sens (0-14) pg/ml C-Reactive Protein 0.78 H (0-0.5) mg/dl Total Protein (6.0-8.3) gm/dl Albumin (3.4-5.0) gm/dl Globulin (2.5-4.0) gm/dl Albumin/Globulin Ratio (0.9-2) Vitamin B12 (180-914) pg/ml Folate (>5.38) ng/ml TSH (0.300-4.500) uIu/ml Free T4 (0.61-1.60) ng/dl Cortisol AM Sample (6.2-22.6) mcg/dl Urine Color Urine Appearance (Clear) Urine pH (4.5-7.5) Ur Specific [place] (1.000-1.030) Urine Protein (Negative) Urine Glucose (UA) (Negative) Urine Ketones (Negative) Urine Blood (Negative) Urine Nitrite (Negative) Urine Bilirubin (Negative) Urine Urobilinogen (Negative) Ur Leukocyte Esterase (Negative) Anaplasma Smear Babesia Smear Babesia microti DNA PCR (Not Detected) Lyme Disease IgG Ab (Negative) Lyme Disease IgM Ab (Negative) EBV Capsid Ag IgG Ab U/mL EBV Capsid Ag IgM Ab U/mL EBV EA Restrict+Diffuse U/mL EBV Nuclear Antigen Ab U/mL EBV Antibody Interp Monoscreen (Negative) SARS-CoV-2, RNA, NAAT (NEGATIVE) Administered Medications Discontinued Medications Citalopram Hydrobromide (C[facility]opram 40 Mg Tab) [facility] [place] 08/23/22 08:59 Last Admin: 07/25/22 08:54 Dose: 40 mg Documented By: Admin: 07/24/22 08:12 Dose: 40 mg Documented By: JESSICA Estrogens Conjugated (Estrogens, Conjugated 0.625 Mg Tab) 0.625 mg PO QAM SALLY Stop: 08/23/22 08:59 Last Admin: 07/25/22 11:12 Dose: 0.625 mg Documented By: Admin: 07/24/22 08:12 Dose: 0.625 mg Documented By: JESSICA Fluticasone Furoate (Fluticasone Furoate 100mcg 14 Puffs/Inhaler) 1 puffs INH DAILY SALLY Stop: 08/24/22 08:59 Last Admin: 07/25/22 08:55 Dose: 1 puffs Documented By: JESSICA Heparin Sodium (Porcine) (Heparin Sod 5,000 Unit/0.5 Ml Vial) 5,000 units SQ Q12 SALLY Stop: 08/24/22 08:59 Last Admin: 07/25/22 08:27 Dose: 5,000 units Documented By: JESSICA Heparin Sodium (Porcine) (Heparin Sod 5,000 Unit/0.5 Ml Vial) 5,000 units SQ NOW STA Stop: 07/24/22 22:13 Last Admin: 07/24/22 23:27 Dose: 5,000 units Documented By: MARCUS Sodium Chloride (Nss 1000ml) 1,000 mls @ 999 mls/hr IV .Q1H1M ONE Stop: 07/23/22 16:32 Last Infusion: 07/23/22 18:13 Dose: 0 mls/hr Documented By: Admin: 07/23/22 16:00 Dose: 999 mls/hr Documented By: BROOKLYN Lactated Ringer's (Lr) 1,000 mls @ 80 mls/hr IV .[id number] SALLY Stop: 07/24/22 10:27 Last Infusion: 07/24/22 09:30 Dose: 0 mls/hr Documented By: Admin: 07/23/22 22:24 Dose: 80 mls/hr Documented By: NATALIA Thiamine HCl 500 mg/ Sodium (Chloride) 55 mls @ 220 mls/hr IV NOW STA Stop: 07/23/22 22:24 Last Infusion: 07/23/22 22:41 Dose: 0 mls/hr Documented By: Admin: 07/23/22 22:24 Dose: 220 mls/hr Documented By: NATALIA Ondansetron HCl (Ondansetron Inj 2 Mg/Ml 2 Ml Vial) 4 mg IV Q6H PRN PRN Reason: Nausea Stop: 08/22/22 21:57 Last Admin: 07/25/22 12:54 Dose: 4 mg Documented By: JESSICA Pantoprazole Sodium (Pantoprazole 40 Mg Tab) 40 mg PO DAILY SALLY Stop: 08/23/22 08:59 Last Admin: 07/25/22 11:13 Dose: 40 mg Documented By: Admin: 07/24/22 08:12 Dose: 40 mg Documented By: JESSICA Thiamine HCl (Thiamine Hcl 100 Mg Tab) 100 mg PO QAM SALLY Stop: 08/23/22 08:59 Last Admin: 07/25/22 08:54 Dose: 100 mg Documented By: Admin: 07/24/22 08:12 Dose: 100 mg Documented By: JESSICA Discharge Plan Visit Data Chief Complaint: Illness Stated Complaint: FEELS VERY SICK ED Provider: Matthew Reyna Discharge Problem: Weakness Patient Disposition: Admitted As Inpatient Discharge Instructions Interventions: ED Discharge Assessment Last Done: 07/23/22 21:43
[2022-07-23 15:32] LABS: Appearance Urine Clear (Clear); Bilirubin Urine Negative (Negative); Blood Urine Negative (Negative); Color Urine Yellow; Glucose Urine UA Negative (Negative); Ketones Urine Negative (Negative); Leukocyte Esterase Urine Negative (Negative); Nitrite Urine Negative (Negative); Protein Urine Negative (Negative); Specific Gravity Urine 1.005 (1.000-1.030); Urobilinogen Urine Negative (Negative); pH Urine 6.5 (4.5-7.5)
[2022-07-23] MEDS ORDERED: SODIUM CHLORIDE 0.9% 1000ML 1,000 ML IV ONE (15:32)
[2022-07-23 17:00] LABS: Lyme Ab IgG w/WB Rflx Negative (Negative)
[2022-07-23 17:01] LABS: Lyme Ab IgM w/WB Rflx Negative (Negative)
--- NOTE | 2022-07-23 19:07 | History & Physical Report ---
Date of Service July 23, 2022 Assessment & Plan (1) Fatigue: Plan: Patient presents with extreme fatigue after hospitalization for asthma exacerbation and discharged on prednisolone In the Emergency Department serologies have been unrevealing this includes thyroid Lyme disease COVID testing she is without any focal complaints other than generalized fatigue This is not consistent with Guillain-Braswell is not consistent with myasthenia by her physical examination Will administer thiamine and send a reference B1 level check B12 and folic acid in the morning as she has been low on B12 in the past We will check Brian-Braswell virus by Monospot testing with reflex We will add the remainder of the tickborne illness testing We will add a free T4 as her TSH was normal as mentioned above Patient be administered lactated Ringer's and observational status overnight for reassessment in the morning with an a.m. cortisol however steroid exposure has been only since July 17 with recommendations to stop at July 22 History of Present Illness Primary Care Provider: Anastasiya Underwood DO Patient presents with extreme fatigue reportedly sleeping since she has been d ischarged in the hospital. Patient was discharged on 19 July after being admitted for 2 days for severe asthma exacerbation which is somewhat atypical for her asthma history. Patient has a previous sensitivity to prednisone and subsequently she was given methylprednisolone and discharged on prednisolone syrup. Her pulmonary and asthma symptoms have resolved however she did request and require some codeine to go home initially and it seemed like she may have been taking codeine throughout the few days that she was fatigued. As she communicated through her daughter I called her and instructed her to stop the codeine and stop the prednisone despite that fact she remains extremely fatigued and presents for evaluation of the emergency department. In the emergency department her serologies were all unrevealing. These included COVID testing and Lyme testing. Likewise her electrolytes liver tests and CBC were all within normal limits. TSH was normal in the past her vitamin B12 had been low will be rechecked a folate will be checked and she will be given thiamine with a B1 level being sent Allergies Allergy/AdvReac Type Severity Reaction Status Date / Time estradiol Allergy Severe THROAT Verified 07/23/22 17:06 SWELLING meperidine Allergy Severe THROAT Verified 07/23/22 17:06 SWELLING, DIFFICULTY BREATHING prednisone Allergy Severe SHORTNESS Verified 07/23/22 17:06 OF BREATH Home Medications Medication Instructions Recorded Confirmed Type budesonide 180 mcg/actuation 1 inh inhalation DAILY PRN 04/06/22 07/23/22 Rx breath activated powder inhaler allergic symptoms #1 ea (Pulmicort Flexhaler) rimegepant 75 mg disintegrating 75 mg PO .every 48hrs PRN Migraine 04/27/22 07/23/22 Rx tablet (Nurtec ODT) Headache #15 tabs citalopram 40 mg tablet 40 mg PO QAM 90 days #90 tabs 07/04/22 07/23/22 Rx conjugated estrogens 0.625 mg 0.625 mg PO QAM #90 tabs 07/04/22 07/23/22 Rx tablet (Premarin) dexlansoprazole 60 mg 60 mg PO DAILY #30 caps 07/04/22 07/23/22 Rx capsule,biphase delayed release (Dexilant) nebulizers #1 ea 07/11/22 Rx codeine 10 mg-guaifenesin 100 mg/5 5 - 10 ml PO Q6H PRN cough #237 mL 07/19/22 07/23/22 Rx mL oral liquid (Guaiatussin AC) epinephrine 0.3 mg/0.3 mL 0.3 mg (0.3 mL) IM Q4H PRN 07/19/22 07/23/22 Rx injection, auto-injector (Auvi-Q) anaphylaxis #2 ea levalbuterol tartrate 45 1 puff inhalation QIDR #1 inhaler 07/19/22 07/23/22 Rx mcg/actuation aerosol inhaler (Xopenex HFA) prednisolone 15 mg/5 mL oral 15 mg (5 mL) PO UD #120 mL 07/19/22 07/23/22 Rx solution Past Med/Surg History Medical History (Updated 07/23/22 @ 18:51 by Matthew Reyna MD) Adhesive capsulitis of left shoulder Anxiety Cough Depression GERD (gastroesophageal reflux disease) High cholesterol 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/FOLLOWS WITH [facility] Migraine Sneezing Temporomandibular joint disorder BILAT CLCIKS-NO LOCKING Surgical History H/O bilateral oophorectomy H/O dilation of urethra H/O nasal septoplasty H/O tubal ligation History of esophagogastroduodenoscopy (EGD) History of tonsillectomy and adenoidectomy Hx of appendectomy S/P arthroscopy of left shoulder (04/2021) S/P arthroscopy of right shoulder (2017) S/P left knee arthroscopy HX S/P IVORY (total abdominal hysterectomy) HX Family History Father Diabetes Alcohol abuse Mother Anxiety Breast cancer Aunt Breast cancer Family/Other Colorectal cancer grandparent Sister Breast cancer Sister Breast cancer Brother Factor V Leiden Heterozygous for MTHFR gene mutation Other No family history of adverse response to anesthesia Denies family history of Ovarian cancer Prostate cancer Myocardial infarction Social History Smoking Status: Never smoker Second Hand Exposure: No; Hx Alcohol Use: Yes Alcohol type: beer Alcohol Intake Frequency: Monthly or Less Alcohol Intake Frequency Comment: socially Hx Substance Use: No Preferred Language: Georgian Communication Ability: Effective Visual Impairment: No Limitations Hearing Ability: Normal Track Service Person Required: No Beliefs That Will Affect Care: None marital status: Current Living Situation: Spouse current occupational status: retired Feels Safe at Home: Yes Childhood Exposure to Second-Hand Smoke: No caffeine: Yes (Coffee x 2 per day) during the past year weight has: remained stable Dental Care, Regularly: Yes Physical Activity Frequency: Daily Seatbelt Use: always Sunscreen Use: Yes Assistive Devices: None Review of Systems Review of Systems: Mild distress and extreme fatigue no headache, no visual changes no speech or swallowing issues no chest pain, pressure or palpitations no shortness of breath, cough or wheezes no abdominal pain, nausea or vomiting, diarrhea or constipation no dysuria, hematuria or frequency no focal joint pain or swelling no back pain, CVA tenderness or radicular pain no bruising, bleeding or rashes no focal signs of weakness or numbness or altered sensation no complaints of anxiety or depression.. Physical Exam Physical Exam: The patient appeared well nourished and normally developed. Vital signs as documented. Head exam is normocephalic atraumatic Neck is without JVD, thyromegaly, or carotid bruits. Lungs are clear to auscultation, no focal loss of breath sounds Cardiac exam, Rhythm is regular.. No murmurs, rubs or gallops. Abdominal exam reveals normal bowel sounds, soft non tender, no masses Extremities are nonedematous and both pedal pulses are present Neurologic exam is alert and oriented, no focal loss of strength or sensation No progressive weakness with rapid repetitive movements No meningeal signs No ascending neuropathy Skin is without bruises or rashes Psychologically is without concerns for anxiety or depression.. Results & Data Results & Data ([facility]) Vital Signs (Past 12 Hours) Vital Signs Temp Pulse Pulse Resp BP BP Pulse Ox 07/23/22 15:22 70 12 135/77 97 07/23/22 15:22 76 18 135/77 97 07/23/22 12:50 97.3 F L 78 20 130/81 98 O2 Del Method 07/23/22 15:22 Room Air 07/23/22 15:22 Room Air 07/23/22 12:50 Room Air Code Status & VTE Plan VTE Prophylaxis Plan VTE Prophylaxis will be ordered: Yes PG Care Time/CCT Total # of Minutes Spent Total Time Spent with Patient: Total time spent is greater than 50% in coordination of care (as documented) at patient's floor/unit and/or counseling patient: Coding Level of Care Code INT OBSERVATION CARE 70M LVL 3 Diagnoses Fatigue R53.83
[2022-07-23] MEDS ORDERED: ONDANSETRON INJ 2 MG/ML 2 ML VIAL IV PRN (21:58)
[2022-07-23] MEDS ORDERED: LACTATED RINGER'S 1,000 ML IV SCH (21:58)
[2022-07-23] MEDS ORDERED: ALUMINUM/MAGNESIUM SUSP 30 ML UDC PO PRN (21:58)
[2022-07-23] MEDS ORDERED: ACETAMINOPHEN 325 MG TAB PO PRN (21:58)
[2022-07-23] MEDS ORDERED: LEVALBUTEROL TARTRATE 15 GM HFA.AER.AD INH PRN (21:58)
[2022-07-23] MEDS ORDERED: THIAMINE HCL 500 MG in SODIUM CHLORIDE 0.9% 50 ML IV STA (22:10)
[2022-07-24] MEDS: ESTROGENS, CONJUGATED 0.625 MG TAB PO SCH (08:12)
[2022-07-24] MEDS: THIAMINE HCL 100 MG TAB PO SCH (08:12)
[2022-07-24] MEDS: PANTOprazole 40 MG TAB PO SCH (08:12)
[2022-07-24] MEDS: CITALOPRAM 40 MG TAB PO SCH (08:12)
[2022-07-24 08:17] LABS: Basophils # (auto) 0.02 K/uL (0-0.2); Basophils % (auto) 0.4 %; Eosinophils % (auto) 19.8 %; Hematocrit (blood only) 38.7 % (34.1-44.9); Hemoglobin 13.3 g/dl (12.0-16.0); Immature Granulocytes # (auto) 0.02 K/uL (0.00-0.02); Immature Granulocytes % (auto) 0.4 %; Lymphocytes # (auto) 1.28 K/uL (1.2-3.4); Lymphocytes % (auto) 25.3 %; Mean Corpuscular Hemoglobin 30.2 pg (25.0-34.0); Mean Corpuscular Hgb Conc 34.4 g/dL (32.0-36.0); Monocytes # (auto) 0.42 K/uL (0.24-0.82); Monocytes % (auto) 8.3 %; Neutrophils # (auto) 2.32 K/uL (1.4-6.5); Neutrophils % (auto) 45.8 %; Platelet Count 257 K/uL (130-400); RDW Coefficient of Variation 12.8 % (11.5-14.5); White Blood Count 5.06 K/ul (4.8-10.8)
[2022-07-24 08:48] LABS: Albumin Globulin Ratio 1.4 (0.9-2); Albumin Level 3.4 gm/dl (3.4-5.0); BUN Creatinine Ratio 15.3 (10-20); Bilirubin,Total 0.4 mg/dl (0.2-1.0); Calcium 8.7 mg/dl (8.5-10.1); Creatinine Clr Calc Pharmacy 74.9 ml/min; Est GFR (African American) 103.3 ml/min; Est GFR (Non-African American) 89.1 ml/min; Globulin 2.5 gm/dl (2.5-4.0); Magnesium 1.7 mg/dl (1.7-2.4); Potassium 4.2 mmol/L (3.5-5.1); Total Protein 5.9 gm/dl (6.0-8.3)
[2022-07-24 08:53] LABS: Cortisol AM 13.64 mcg/dl (6.2-22.6)
[2022-07-24 09:06] LABS: Folate (Folic Acid) 14.34 ng/ml (>5.38)
[2022-07-24] MEDS ORDERED: HEPARIN SOD 5,000 UNIT/0.5 ML VIAL SQ STA (22:12)
--- NOTE | 2022-07-24 22:14 | Hospitalist Progress Note ---
Date of Service July 24, 2022 Assessment & Plan (1) Fatigue: Plan: Patient presents with extreme fatigue after hospitalization for asthma exacerbation and discharged on prednisolone In the Emergency Department serologies have been unrevealing this includes thyroid Lyme disease COVID testing she is without any focal complaints other than generalized fatigue This is not consistent with Guillain-Braswell is not consistent with myasthenia by her physical examination Will administer thiamine and send a reference B1 level check B12 and folic acid in the morning as she has been low on B12 in the past We will check Brian-Braswell virus by Monospot testing with reflex We will add the remainder of the tickborne illness testing We will add a free T4 as her TSH was normal as mentioned above Patient be administered lactated Ringer's and observational status overnight for reassessment in the morning with an a.m. cortisol however steroid exposure has been only since July 17 with recommendations to stop at July 22 On 07/24 symptoms improving. still with remnants, such as dizziness. will monitor. all workuip appears to be negative. Admission and Anticipated Discharge Date Admission Date: July 23, 2022 Subjective 61 yo female reports no new symptoms. Patient reports her symptoms have improved. Still with dizziness. Review of Systems Review of Systems: All systems reviewed & are unremarkable except as noted in HPI & below Physical Exam Physical Exam: The patient appeared well nourished and normally developed. Vital signs as documented. Head exam is normocephalic atraumatic Neck is without JVD, thyromegaly, or carotid bruits. Lungs are clear to auscultation, no focal loss of breath sounds Cardiac exam, Rhythm is regular.. No murmurs, rubs or gallops. Abdominal exam reveals normal bowel sounds, soft non tender, no masses Extremities are nonedematous and both pedal pulses are present Neurologic exam is alert and oriented, no focal loss of strength or sensation No progressive weakness with rapid repetitive movements No meningeal signs No ascending neuropathy Skin is without bruises or rashes Psychologically is without concerns for anxiety or depression.. Results & Data Results & Data ([facility]) Vital Signs (Past 12 Hours) Vital Signs Temp Pulse Resp BP Pulse Ox O2 Del Method 07/24/22 20:00 Room Air 07/24/22 15:55 36.8 C 82 16 102/66 94 Room Air PG Care Time/CCT Total # of Minutes Spent Total Time Spent with Patient: Total time spent is greater than 50% in coordination of care (as documented) at patient's floor/unit and/or counseling patient: Coding Level of Care Code 95987 Subseq Hosp Care Lvl 2 Diagnoses Fatigue R53.83
[2022-07-25 05:48] LABS: Hemoglobin 13.4 g/dl (12.0-16.0); Mean Corpuscular Hemoglobin 30.2 pg (25.0-34.0); Mean Corpuscular Hgb Conc 34.4 g/dL (32.0-36.0); Mean Platelet Volume 9.1 fL (9.4-12.3); Platelet Count 267 K/uL (130-400); RDW Coefficient of Variation 12.8 % (11.5-14.5); RDW Standard Deviation 41.3 fL (36.4-46.3); Red Blood Count 4.43 M/uL (3.93-5.22); White Blood Count 6.13 K/ul (4.8-10.8)
[2022-07-25] MEDS: THIAMINE HCL 100 MG TAB PO SCH (08:54)
[2022-07-25] MEDS: CITALOPRAM 40 MG TAB PO SCH (08:54)
[2022-07-25] MEDS ORDERED: FLUTICASONE FUROATE 100MCG 14 PUFFS/INHALER INH SCH (09:00)
[2022-07-25] MEDS ORDERED: HEPARIN SOD 5,000 UNIT/0.5 ML VIAL SQ SCH (09:00)
[2022-07-25] MEDS: ESTROGENS, CONJUGATED 0.625 MG TAB PO SCH (11:12)
[2022-07-25] MEDS: PANTOprazole 40 MG TAB PO SCH (11:13)
--- NOTE | 2022-07-25 16:31 | Neurology Consultation ---
Date of Consultation July 25, 2022 Assessment & Plan (1) Fatigue: Impression: The patient was hospitalized for asthma exacerbation and was treated on steroids and codeine. Since discharge, the patient has been feeling fatigue, lack of energy, excessive sleepiness, and was admitted to hospital 2 days ago. She reports feeling better, but today, she had an episode of bad feeling, jitteriness inside her body, and questionable paresthesia in all extremities, which lasted for an hour or so. She is back to her baseline. She does not have any symptoms to suggest neuro pathology including myasthenia gravis, GBS, neuropathy, or muscle disorder. Recommendations: There is no indication for further neurological work-up or follow-up. The patient is neurologically intact and there is no neurological explanation of the patient's symptoms from neurology point of view. Plan Thank you for the consultation. History of Present Illness Reason for Consultation: Fatigue, temporary subjective paresthesia Requesting Physician: Jude Powell MD Attending Physician: Jude Powell History of Present Illness The patient is a 61-year-old female, who was admitted to hospital 2 days ago, after she presented to emergency department with generalized extreme fatigue without focal neurological symptoms. Apparently, she was recently hospitalized for asthma exacerbation, and was discharged home on prednisolone and codeine. Initially, she was feeling well, but then she began feeling tired, exhausted, excessive sleepiness, and based on her physician's recommendation, she stopped using prednisolone and codeine five days ago. In emergency department, the patient was not having fatigable weakness, or other symptoms to suggest myasthenia gravis. She was not having sensory symptoms or ascending weakness to suggest demyelinating polyradiculoneuropathy as seen in GBS. Since yesterday, the patient has been feeling better. She was ready for discharge today, then she felt diaphoresis, feeling exhaustion, and jitteriness inside her body, and neurology consultation is requested. Such episode lasted only for an hour or so and the patient is back to her baseline. She denies having any swallowing difficulty, double vision, history of fatigable weakness, dyspnea, and neurologic examination is intact. I have reviewed the patient's chart including recent laboratory work-up results. I have discussed the case with the patient and answered her questions in detail. Allergies Allergy/AdvReac Type Severity Reaction Status Date / Time estradiol Allergy Severe THROAT Verified 07/23/22 17:06 SWELLING meperidine Allergy Severe THROAT Verified 07/23/22 17:06 SWELLING, DIFFICULTY BREATHING prednisone Allergy Severe SHORTNESS Verified 07/23/22 17:06 OF BREATH Home Medications Medication Instructions Recorded Confirmed Type budesonide 180 mcg/actuation 1 inh inhalation DAILY PRN 04/06/22 07/23/22 Rx breath activated powder inhaler allergic symptoms #1 ea (Pulmicort Flexhaler) rimegepant 75 mg disintegrating 75 mg PO .every 48hrs PRN Migraine 04/27/22 07/23/22 Rx tablet (Nurtec ODT) Headache #15 tabs citalopram 40 mg tablet 40 mg PO QAM 90 days #90 tabs 07/04/22 07/23/22 Rx conjugated estrogens 0.625 mg 0.625 mg PO QAM #90 tabs 07/04/22 07/23/22 Rx tablet (Premarin) dexlansoprazole 60 mg 60 mg PO DAILY #30 caps 07/04/22 07/23/22 Rx capsule,biphase delayed release (Dexilant) nebulizers #1 ea 07/11/22 Rx codeine 10 mg-guaifenesin 100 mg/5 5 - 10 ml PO Q6H PRN cough #237 mL 07/19/22 07/23/22 Rx mL oral liquid (Guaiatussin AC) epinephrine 0.3 mg/0.3 mL 0.3 mg (0.3 mL) IM Q4H PRN 07/19/22 07/23/22 Rx injection, auto-injector (Auvi-Q) anaphylaxis #2 ea levalbuterol tartrate 45 1 puff inhalation QIDR #1 inhaler 07/19/22 07/23/22 Rx mcg/actuation aerosol inhaler (Xopenex HFA) prednisolone 15 mg/5 mL oral 15 mg (5 mL) PO UD #120 mL 07/19/22 07/23/22 Rx solution Patient History Medical History Adhesive capsulitis of left shoulder Anxiety Cough Depression GERD (gastroesophageal reflux disease) High cholesterol 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/[facility]OWS WITH [facility] Migraine Sneezing Temporomandibular joint disorder BILAT CLCIKS-NO LOCKING Surgical History H/O bilateral oophorectomy H/O dilation of urethra H/O nasal septoplasty H/O tubal ligation History of esophagogastroduodenoscopy (EGD) History of tonsillectomy and adenoidectomy Hx of appendectomy S/P arthroscopy of left shoulder (04/2021) S/P arthroscopy of right shoulder (2016) S/P left knee arthroscopy HX S/P IVORY (total abdominal hysterectomy) HX Family History Father Diabetes Alcohol abuse Mother Anxiety Breast cancer Aunt Breast cancer Family/Other Colorectal cancer grandparent Sister Breast cancer Sister Breast cancer Brother Factor V Leiden Heterozygous for MTHFR gene mutation Other No family history of adverse response to anesthesia Denies family history of Ovarian cancer Prostate cancer Myocardial infarction Social History Smoking Status: Never smoker Second Hand Exposure: No; Do You Dip or Chew Tobacco: No; Hx Alcohol Use: Yes Alcohol type: beer Alcohol Intake Frequency: Monthly or Less Alcohol Intake Frequency Comment: socially Hx Substance Use: No Preferred Language: [place] Island[place] Communication Ability: Effective Visual Impairment: No Limitations Hearing Ability: Normal 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 Beliefs That Will Affect Care: None marital status: Current Living Situation: Spouse current occupational status: retired Other Information That Helps Us Care for You: No Feels Safe at Home: Yes Safety Concerns: Feels Safe At This Time Childhood Exposure to Second-Hand Smoke: No caffeine: Yes (Coffee x 2 per day) during the past year weight has: remained stable Dental Care, Regularly: Yes Physical Activity Frequency: Daily Seatbelt Use: always Sunscreen Use: Yes Assistive Devices: None Physical Exam Physical Exam: General Examination: Constitutional: Well developed person in no acute distress. HENT: Normal exam with inspection. CV: Hearth rhythm is regular. Neck: Supple, no carotid bruits. Lungs: Non-labored and comfortable breathing. Abdomen: Soft, non-tender, non-distended. Skin: No rash or ecchymosis. Extremities: No edema or cyanosis NEUROLOGICAL EXAMINATION: Mental Status: Alert and oriented to place, person and time. Cranial Nerves: II-XII are intact. No nystagmus. Funduscopy: Normal looking optic discs. Motor: 5/5 in all extremities without asymmetry. Repetitive muscle contractions did not induce weakness. Tone: Normal without spasticity or rigidity. Sensory: Intact to all sensory modalities except decreased vibratory sensation in toes. DTRs: 2+ all symmetrically. Coordination: No dysmetria with FTN testing. Speech: Fluent. Comprehension is intact. Gait: Normal. No ataxia or abnormal walking pattern. Musculoskeletal: Normal muscle bulk, no atrophy. Results & Data ([facility]) Vital Signs (Past 12 Hours) Vital Signs Temp Pulse Resp BP Pulse Ox O2 Del Method 07/25/22 15:22 36.6 C 88 16 110/70 97 Room Air 07/25/22 12:19 36.4 C L 84 16 114/77 97 Room Air 07/25/22 07:38 36.6 C 68 16 106/67 94 Room Air Laboratory Results Laboratory Results - last 24 hr 07/23/22 07/25/22 07/25/22 19:13 05:12 05:12 WBC 6.13 RBC 4.43 Hgb 13.4 Hct 39.0 MCV 88.0 MCH 30.2 MCHC 34.4 RDW Std Deviation 41.3 RDW Coeff of Kirby 12.8 Plt Count 267 MPV 9.1 L ESR 13 C-Reactive Protein EBV Capsid Ag IgG Ab 587.00 H EBV Capsid Ag IgM Ab <36.00 EBV EA Restrict+Diffuse 35.30 H EBV Nuclear Antigen Ab 25.70 H EBV Antibody Interp SEE NOTE 07/25/22 05:12 WBC RBC Hgb Hct MCV MCH MCHC RDW Std Deviation RDW Coeff of Kirby Plt Count MPV ESR C-Reactive Protein 0.78 H EBV Capsid Ag IgG Ab EBV Capsid Ag IgM Ab EBV EA Restrict+Diffuse EBV Nuclear Antigen Ab EBV Antibody Interp
[2022-07-26 07:11] LABS: Babesia microti DNA Not Detected (Not Detected)
--- NOTE | 2022-07-31 18:00 | Discharge Summary ---
Date of Service July 25, 2022 Admission HPI Per Admitting Provider Patient presents with extreme fatigue reportedly sleeping since she has been discharged in the hospital. Patient was discharged on 19 July after being admitted for 2 days for severe asthma exacerbation which is somewhat atypical for her asthma history. Patient has a previous sensitivity to prednisone and subsequently she was given methylprednisolone and discharged on prednisolone syrup. Her pulmonary and asthma symptoms have resolved however she did request and require some codeine to go home initially and it seemed like she may have been taking codeine throughout the few days that she was fatigued. As she communicated through her daughter I called her and instructed her to stop the codeine and stop the prednisone despite that fact she remains extremely fatigued and presents for evaluation of the emergency department. In the emergency department her serologies were all unrevealing. These included COVID testing and Lyme testing. Likewise her electrolytes liver tests and CBC were all within normal limits. TSH was normal in the past her vitamin B12 had been low will be rechecked a folate will be checked and she will be given thiamine with a B1 level being sent Principal Diagnosis fatigue Discharge Exam The patient appeared well nourished and normally developed. Vital signs as documented. Head exam is normocephalic atraumatic Neck is without JVD, thyromegaly, or carotid bruits. Lungs are clear to auscultation, no focal loss of breath sounds Cardiac exam, Rhythm is regular.. No murmurs, rubs or gallops. Abdominal exam reveals normal bowel sounds, soft non tender, no masses Extremities are nonedematous and both pedal pulses are present Neurologic exam is alert and oriented, no focal loss of strength or sensation No progressive weakness with rapid repetitive movements No meningeal signs No ascending neuropathy Skin is without bruises or rashes Psychologically is without concerns for anxiety or depression.. Discharge Data Allergies Allergy/AdvReac Type Severity Reaction Status Date / Time estradiol Allergy Severe THROAT Verified 07/28/22 08:15 SWELLING meperidine Allergy Severe THROAT Verified 07/28/22 08:15 SWELLING, DIFFICULTY BREATHING prednisone Allergy Severe SHORTNESS Verified 07/28/22 08:15 OF BREATH Consultations 07/23/22 19:01 ED Decision to Admit Stat 07/25/22 13:22 Consult Neurology Routine Hospital Course (1) Fatigue: Patient presents with extreme fatigue after hospitalization for asthma exacerbation and discharged on prednisolone In the Emergency Department serologies have been unrevealing this includes thyroid Lyme disease COVID testing she is without any focal complaints other than generalized fatigue This is not consistent with Guillain-Braswell is not consistent with myasthenia by her physical examination Will administer thiamine and send a reference B1 level check B12 and folic acid in the morning as she has been low on B12 in the past We will check Brian-Braswell virus by Monospot testing with reflex We will add the remainder of the tickborne illness testing We will add a free T4 as her TSH was normal as mentioned above Patient be administered lactated Ringer's and observational status overnight for reassessment in the morning with an a.m. cortisol however steroid exposure has been only since July 17 with recommendations to stop at July 22 On 07/24 symptoms improving. still with remnants, such as dizziness. will monitor. all workuip appears to be negative. Appreciate input from Neurology on 07/25 The patient was hospitalized for asthma exacerbation and was treated on steroids and codeine. Since discharge, the patient has been feeling fatigue, lack of energy, excessive sleepiness, and was admitted to hospital 2 days ago. She reports feeling better, but today, she had an episode of bad feeling, jitteriness inside her body, and questionable paresthesia in all extremities, which lasted for an hour or so. She is back to her baseline. She does not have any symptoms to suggest neuro pathology including myasthenia gravis, GBS, neuropathy, or muscle disorder. Recommendations: There is no indication for further neurological work-up or follow-up. The patient is neurologically intact and there is no neurological explanation of the patient's symptoms from neurology point of view. Patient was discharged on thiamine. will defer further outpatient workup with PCP, perhaps keep a diary of her symptoms. Perhaps may be psychogenic, but would need to complete ruling out other diagnosis prior to going to that route. Total Time Total Time Spent Total Time Spent (In Minutes): 35 Discharge Plan Discharge Items Patient Disposition: Home - Self-Care Reason For Visit: WEAKNESS Discharge Diagnosis: weakness Activity: Resume your previous activity Non-emergency contact: Primary Care Provider Call non-emergency contact if: you have any medication questions Follow-up/Referrals: Anastasiya Underwood DO [Primary Care Provider] - Diet: Regular Addtl Attending Provider Instructions: Recommend close followup with PCP in 2 days. Pending Studies at Discharge: No Stand-Alone Forms: [facility], Smoking Cessation Medications and DC Order Prescriptions: Continued Pulmicort Flexhaler 180 mcg/actuation aerosol powdr breath activated 1 inh inhalation DAILY PRN (Reason: allergic symptoms) Qty: 1 5RF dexlansoprazole [Dexilant] 60 mg capsule,biphase delayed releas 60 mg PO DAILY Qty: 30 2RF citalopram 40 mg tablet 40 mg PO QAM 90 Days Qty: 90 1RF Premarin 0.625 mg tablet 0.625 mg PO QAM Qty: 90 1RF (DME) nebulizers Misc See Rx Instructions .Route Qty: 1 0RF Rx Instructions: Use as directed Nurtec ODT 75 mg tablet,disintegrating 75 mg PO .every 48hrs PRN (Reason: Migraine Headache) Qty: 15 1RF codeine-guaifenesin [Guaiatussin AC] 10-100 mg/5 mL Liquid 5 - 10 ml PO Q6H PRN (Reason: cough) Qty: 237 0RF epinephrine [Auvi-Q] 0.3 mg/0.3 mL auto-injector 0.3 mg IM Q4H PRN (Reason: anaphylaxis) Qty: 2 5RF Discontinued prednisolone 15 mg/5 mL solution 15 mg PO UD Qty: 120 0RF Rx Instructions: 45mg daily x 3d, then 30 mg daily x 3 d, then 15 mg a day x 3 d then stop No Action levalbuterol tartrate [Xopenex HFA] 45 mcg/actuation HFA aerosol inhaler 1 puff inhalation QIDR Qty: 1 2RF amoxicillin-pot clavulanate 875-125 mg tablet 1 tab PO BID 7 Days Qty: 14 0RF levalbuterol HCl 1.25 mg/3 mL solution for nebulization 1.25 mg inhalation Q6H PRN (Reason: shortness of breath or wheezing) Qty: 90 2RF Discharge Orders: Discharge Order (Routine); Ordered 07/25/22 Ordered By: Jude Powell Admission Data Admit Date/Time: 07/23/22 18:56 Attending Provider: Jude Powell Admit Provider: Too Pradhan Primary Care Provider: Anastasiya Underwood Other Providers: Too Pradhan ; Harlan Barker ; Nabil Goodwin ; Lacy Gamino ; Karen Land ; Al Hand ; Karen Simmons ; Dickson Del Angel ; Marianna Yuan ; Reji Hernandez ; Mary Darby ; Flores Olvera Other Interventions: Discharge Summary Assessment (RN) Last Done: 07/25/22 18:17 Coding Level of Care Code 45307 OBS Care - Discharge Diagnoses Fatigue R53.83
== END 2022-07-25 18:44 | disposition home or self-care (01) ==
LOC: ED 12:32 → 3N 12:32 → SUATTDRO 18:56 → 3N 21:43
DX: R53.1 Weakness; R53.83 Other fatigue; Z88.8 Allergy status to other drugs, medicaments and biological substances; Z79.899 Other long term (current) drug therapy